=== PATIENT | female | born 1930 | race Hispanic/Latino ===

== ENCOUNTER 2017-12-01 10:03 | Inpatient (IN) | payer MEDICARE, OTHER ==
[2017-12-01 10:10] VITALS: BMI 15.6
--- NOTE | 2017-12-01 10:23 | ED PDOC ---
Arrival/HPI - General Chief Complaint: Trauma Time Seen by Provider: 12/01/17 10:08 Historian: Patient - History of Present Illness Narrative History of Present Illness (Text): 12/01/17 10:10 Susie Schwarz is an 87 year old female, whose past medical history includes COPD, hyperemia, and colon surgery, who presents to the emergency department complaining of right hip and right wrist pain s/p mechanical fall one day ago. Patient reports she was going to reach down for her mail when she ended up falling on her right side. She reports taking Aleve for her pain and notes spraining her right ankle a couple of weeks ago. Patient denies chest pain, shortness of breath, dizziness, lightheadedness, or palpitation. Patient did not hit their head. Patient denies any loss of consciousness, headache, fever, chills, cough, nausea, vomiting, diarrhea, visual changes, neck pain, dysuria, hematuria, frequency, bowel/bladder incontinence or retention, abdominal pain. Patient denies other bodily pain or injury. PMD: Dr. Engel Time/Duration: 24 hours Symptom Onset: Gradual Symptom Course: Unchanged Context: Home (mechanical fall) Past Medical History - Provider Review Nursing Documentation Reviewed: Yes - Infectious Disease Hx of Infectious Diseases: None - Tetanus Immunization Tetanus Immunization: Unknown - Reproductive Menopause: Yes - Pulmonary Hx Emphysema: No (pt denies) Hx Pneumonia: Yes (2007) Other/Comment: Flu 2008 - HEENT Hx Glaucoma: Yes - Hematological/Oncological Hx Shingles: Yes (face) - Musculoskeletal/Rheumatological Hx Falls: No Hx Fractures: Yes (right leg 13 yrs ago) Other/Comment: Right Hip Fx - Psychiatric Hx Substance Use: No - Surgical History Hx Cholecystectomy: Yes Other/Comment: colon sx, abdominal adhesions, cancerous polyp removed 15 yrs ago - Anesthesia Hx Anesthesia Reactions: No Hx Malignant Hyperthermia: No - Suicidal Assessment Feels Threatened In Home Enviroment: No Family/Social History - Physician Review Nursing Documentation Reviewed: Yes Family/Social History: Unknown Family HX Smoking Status: Never Smoked Hx Alcohol Use: No Hx Substance Use: No Hx Substance Use Treatment: No Allergies/Home Meds Allergies/Adverse Reactions: Allergies No Known Allergies Allergy (Verified 09/13/16 19:11) Home Medications: Home Meds Medication Instructions Recorded Confirmed Unobtainable 09/13/16 09/13/16 Review of Systems - Review of Systems Constitutional: absent: Fevers Respiratory: absent: SOB, Cough Cardiovascular: absent: Chest Pain Gastrointestinal: absent: Abdominal Pain, Vomiting Genitourinary Female: absent: Dysuria, Frequency Musculoskeletal: Other (right hip pain and right wrist pain) Skin: Other (small abrasion on right knee). absent: Rash Neurological: absent: Headache, Dizziness Hemo/Lymphatic: absent: Easy Bleeding Psychiatric: absent: Anxiety Physical Exam Vital Signs Temp Pulse Resp BP Pulse Ox 12/01/17 10:32 97.6 F 70 18 144/66 100 Appearance: Positive for: Well-Appearing, Non-Toxic, Comfortable Pain Distress: None Mental Status: Positive for: Alert and Oriented X 3 - Systems Exam Head: Present: Atraumatic, Normocephalic Pupils: Present: PERRL Extroacular Muscles: Present: EOMI Conjunctiva: Present: Normal Neck: Present: Normal Range of Motion. No: Meningeal Signs, MIDLINE TENDERNESS , Paraspinal Tenderness Respiratory/Chest: Present: Clear to Auscultation, Good Air Exchange. No: Respiratory Distress, Accessory Muscle Use, Wheezes, Rales, Retracting, Rhonchi Cardiovascular: Present: Regular Rate and Rhythm, Normal S1, S2. No: Murmurs Abdomen: Present: Normal Bowel Sounds. No: Tenderness, Distention, Peritoneal Signs, Rebound, Guarding Upper Extremity: Present: Normal ROM, NORMAL PULSES, Swelling (right wrist swelling, no tenderness), Neurovascularly Intact, Capillary Refill < 2s. No: Normal Inspection, Cyanosis, Edema, Tenderness Lower Extremity: Present: NORMAL PULSES, Normal ROM, Tenderness (posterior right hip tenderness. no ecchymosis and FROM of hip), Capillary Refill < 2 s. No: Normal Inspection, Edema, Cyanosis, Deformity Neurological: Present: GCS=15, CN II-XII Intact, Speech Normal Skin: Present: Warm, Dry, Normal Color, Abrasion (on right knee). No: Rashes Psychiatric: Present: Alert, Oriented x 3, Normal Insight, Normal Concentration Medical Decision Making ED Course and Treatment: 12/01/17 Impression: 87 year old female with posterior right hip tenderness. no ecchymosis and FROM of hip and legs. Right wrist swelling, but no tenderness and abrasion on right knee. Differential Diagnosis included but are not limited to: mechanical fall r/o fracture Plan: -- Right hip x-ray -- Right wrist x-ray -- Chest X-ray -- Labs -- Urinalysis -- Reassess and disposition Progress Notes: 12/01/17 15:05 Xrays of her hip and wrist have old fractures. There is no acute fracture. Patient is incontinent and wears a diaper so it's been difficult to get UA. She does not want to be strait cathed. She is unable to walk with a steady gait. I discussed case with daughter who reports this is her 2nd recent fall and she's concerned about her ability to walk. I discussed case with Dr. Pena who will admit her for further evaluation of hyponatremia and ataxia. - Lab Interpretations Lab Results: 12/01/17 10:40 12/01/17 10:40 Lab Results 12/01/17 10:40: Sodium 128 L, Potassium 4.5, Chloride 90 L, Carbon Dioxide 31, Anion Gap 12, BUN 20, Creatinine 0.5 L, Est GFR ( Amer) > 60, Est GFR ( Non-Af Amer) > 60, Random Glucose 83, Calcium 9.7 12/01/17 10:40: WBC 11.5 H, RBC 3.87, Hgb 10.9 L, Hct 33.7 L, MCV 87.1, MCH 28.2 , MCHC 32.3, RDW 13.4, Plt Count 236, MPV 9.0, Gran % 91.5 H, Lymph % (Auto) 2.6 L, Smith % (Auto) 5.5, Eos % (Auto) 0.2 L, Baso % (Auto) 0.2, Gran # 10.51 H , Lymph # (Auto) 0.3 L, Smith # (Auto) 0.6, Eos # (Auto) 0.0, Baso # (Auto) 0.02 , Neutrophils % (Manual) 90 H, Lymphocytes % (Manual) 4 L, Monocytes % (Manual) 5, Eosinophils % (Manual) 1, Platelet Evaluation Normal I have reviewed the lab results: Yes - RAD Interpretation Radiology Orders: 12/01/17 10:17 CXR [CHEST ONE VIEW] [RAD] Stat HIP MIN 2V W/ PELVIS RT [RAD] Stat WRIST, RIGHT 3 VIEWS [RAD] Stat 12/01/17 11:17 PELVIS W/O PO OR IV CONTRAST [CT] Stat Furnace Combination Analyst: Radiologist - EKG Interpretation Interpreted by ED Physician: Yes Type: 12 lead EKG - Scribe Statement The provider has reviewed the documentation as recorded by the Maciel Malone Provider Scribe Attestation: All medical record entries made by the Faithibe were at my direction and personally dictated by me. I have reviewed the chart and agree that the record accurately reflects my personal performance of the history, physical exam, medical decision making, and the department course for this patient. I have also personally directed, reviewed, and agree with the discharge instructions and disposition. Disposition/Present on Arrival - Present on Arrival Any Indicators Present on Arrival: No History of DVT/PE: No History of Uncontrolled Diabetes: No Urinary Catheter: No History of Decub. Ulcer: No History Surgical Site Infection Following: None - Disposition Have Diagnosis and Disposition been Completed?: Yes Diagnosis: Hyponatremia, Ataxia Disposition Time: 15:08 Patient Plan: Admission Condition: FAIR Forms: Deemelo (Italian)
[2017-12-01 11:05] LABS: BASO # 0.02 K/mm3 (0.0-2.0); BASO % 0.2 % (0.0-3.0); EOS % 0.2 % (1.5-5.0); GRAN # 10.51 (1.4-6.5); GRAN % 91.5 % (50.0-68.0); HEMOGLOBIN 10.9 g/dL (12.0-16.0); LYMPH # 0.3 (1.2-3.4); LYMPH % 2.6 % (22.0-35.0); MEAN CELL VOLUME 87.1 fl (80.0-105.0); MEAN CORPUSCULAR HEMOGLOBIN 28.2 pg (25.0-35.0); MEAN CORPUSCULAR HGB CONC 32.3 g/dl (31.0-37.0); MONO # 0.6 (0.1-0.6); MONO % 5.5 % (1.0-6.0); PLATELET COUNT 236 10^3/uL (120.0-450.0); RBC 3.87 10^6/uL (3.5-6.1); RED CELL DISTRIBUTION WIDTH 13.4 % (11.5-14.5); WHITE BLOOD COUNT 11.5 10^3/ul (4.5-11.0)
[2017-12-01 11:18] LABS: BLOOD UREA NITROGEN 20 mg/dL (7-21); CALCIUM 9.7 mg/dL (8.4-10.5); GFR AFRICAN-AMERICAN > 60; GFR NON-AFRICAN AMERICAN > 60
--- NOTE | 2017-12-01 11:40 | RAD ---
PROCEDURE: CHEST RADIOGRAPH, 1 VIEW HISTORY: fall r/o fx COMPARISON: 09/13/2016. FINDINGS: LUNGS: Fibronodular changes, scarring in both upper lobes/apices. PLEURA: No pneumothorax or pleural fluid seen. CARDIOVASCULAR: No radiographic findings to suggest acute or significant cardiovascular disease. OSSEOUS STRUCTURES: No acute findings. Healing of right proximal humeral fracture. VISUALIZED UPPER ABDOMEN: Normal. OTHER FINDINGS: None. IMPRESSION: No active disease. No acute/significant interval changes. Concordant results with the preliminary interpretation rendered by the emergency department physician procedure.
[2017-12-01 11:50] LABS: EOSINOPHIL 1 % (0.0-3.0); LYMPHOCYTE 4 % (22.0-35.0); MONOCYTE 5 % (1.0-6.0); NEUTROPHIL 90 % (50.0-70.0); PLATELET ESTIMATE NORMAL (NORMAL)
--- NOTE | 2017-12-01 12:37 | RAD ---
PROCEDURE: Right Wrist Radiographs. HISTORY: fall r/o fx COMPARISON: None. FINDINGS: BONES: Evidence of old and healed distal radial fracture. JOINTS: Incompletely visualize osteoarthritic changes primarily carpal 1st metacarpal joint. SOFT TISSUES: No appreciable soft tissue swelling. OTHER FINDINGS: None. IMPRESSION: No acute findings related to/accounting for the clinical presentation. Old healed distal radial fracture. There is no appreciable soft tissue swelling.
--- NOTE | 2017-12-01 12:38 | RAD ---
PROCEDURE: Pelvis right hip HISTORY: fall r/o fx COMPARISON: None TECHNIQUE: Standard protocol for this study/examination. FINDINGS: No acute osseous abnormalities. Bipolar prosthesis components in satisfactory position/alignment without evidence of hardware loosening or failure. Diffuse osteopenia identified. IMPRESSION: No acute findings related to/accounting for the clinical presentation. Concordant results with the preliminary interpretation rendered by the emergency department physician procedure.
[2017-12-01] MEDS ORDERED: Iohexol 350 MG/100 ML VIAL ONE (13:00)
--- NOTE | 2017-12-01 14:34 | CT ---
PROCEDURE: CT Pelvis without contrast move HISTORY: right hip pain s/p fall r/o fx COMPARISON: None. TECHNIQUE: Contiguous axial images of the pelvis . No intravenous or oral contrast given. Coronal and sagittal reformats generated. Radiation dose: Total exam DLP = 193.31 mGy-cm. This CT exam was performed using one or more of the following dose reduction techniques: Automated exposure control, adjustment of the mA and/or kV according to patient size, and/or use of iterative reconstruction technique. FINDINGS: BLADDER: Unremarkable. No mass. REPRODUCTIVE ORGANS: Unremarkable. VISUALIZED BOWEL: Constipation without fecal impaction or obstruction. PERITONEUM: Unremarkable, as visualized. No free fluid. No free air. LYMPH NODES: Unremarkable. No enlarged lymph nodes. BONES: Diffuse osteopenia. No acute fracture. Evidence of old fracture of the right pubis No abnormalities proximal right femur, right hip prosthesis. VASCULATURE: Unremarkable. OTHER FINDINGS: None. IMPRESSION: No acute findings related to/accounting for the clinical presentation. Old right pelvic ring fracture. Unremarkable right hip prosthesis as visualized. Additional benign and/or incidental findings described above.
[2017-12-01] MEDS ORDERED: Sodium Chloride 0.9% 1,000 ML IV SCH (15:15)
[2017-12-01 15:50] LABS: IRON 37 ug/dL (45-180)
[2017-12-01 16:00] LABS: % IRON SATURATION 12 % (20-55); TOTAL IRON BINDING CAPACITY 319 ug/dL (265-497)
[2017-12-01 21:18] LABS: FOLATE > 20.0 ng/mL
[2017-12-01 23:10] LABS: URINE APPEARANCE CLEAR (CLEAR); URINE BILIRUBIN NEGATIVE (NEGATIVE); URINE BLOOD NEGATIVE (NEGATIVE); URINE COLOR YELLOW (YELLOW); URINE GLUCOSE (UA) NEGATIVE (NEGATIVE); URINE LEUKOCYTE ESTERASE NEGATIVE Leu/uL (NEGATIVE); URINE NITRATE NEGATIVE (NEGATIVE); URINE PROTEIN TRACE mg/dL (<30 mg/dL); URINE UROBILINOGEN 0.2 E.U./dL (<1 E.U./dL)
[2017-12-01 23:19] LABS: URINE RBC NEGATIVE /hpf (0-2)
--- NOTE | 2017-12-02 04:19 | HP ---
DATE; 12/01/2017 SUMMARY: This 87-year-old female presented to the [facility] ER after a fall at home where she fell down while trying to reach down for her mail this morning, injuring her right hip and thigh. The patient came to the [facility] ER, where she underwent diagnostic workup including pelvic CT, right wrist x-ray, right hip and pelvic x-rays, all negative for fracture. The patient is admitted for deconditioning, and laboratory showing hyponatremia. The patient lives at home alone. She has the help of family and a homemaker, who assists her with activities of daily living. She is independent and declines any consideration for mcc placement or subacute rehab. SOCIAL HISTORY: The patient is a nondrinker, nonsmoker, non-IV drug misuser. 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 MEDICATIONS: Outpatient medication included demeclocycline, Proventil inhaler. ALLERGIES: SHE DENIES ANY ALLERGIES TO MEDICATION. REVIEW OF SYSTEMS: CONSTITUTIONAL: She denies fever or chills. HEAD: Denied loss of consciousness or seizure. EYES: No change in visual acuity. She has chronic glaucoma. EARS: No hearing loss. THROAT: No swallowing difficulty. NECK: Review no stiffness. CARDIAC: She denied chest pain or knowledge of hypertension. PULMONARY: She has chronic obstructive pulmonary disease, for which she uses daily Proventil inhaler. GASTROINTESTINAL: She denies GERD and has a history of colon cancer with resection. GENITOURINARY: Denies dysuria. SKIN: Denies rash. VASCULAR: Denies claudication. PSYCHOLOGICAL: Chronic anxiety. NEUROLOGICAL: No knowledge of stroke. FAMILY HISTORY: Noncontributory. PHYSICAL EXAMINATION: VITAL SIGNS: Temperature 98, respiratory 18, pulse 68, blood pressure 147/64, pulse ox 96% room air. HEENT: Head normocephalic, atraumatic. Eyes, no icterus. Ears, clear. Throat, noninjected. NECK: Supple. HEART: Regular S1, S2. LUNGS: Clear. ABDOMEN: Soft. EXTREMITIES: No edema. SKIN: Without rash. NEUROLOGICAL: Intact. PSYCHOLOGICAL: Alert. VASCULAR: Legs warm to touch. LABORATORY DATA: White count 11,500, hemoglobin 10.9, hematocrit 33.7, platelets 236,000. Sodium 128, K 4.5, chloride 90, bicarb 31, BUN 20, creatinine 0.5, random blood sugar 83. Chest x-ray consistent with chronic obstructive pulmonary disease. Right hip and pelvic x-ray, no evidence of fracture. Right wrist x-ray, no evidence of fracture. Pelvic CT, no evidence of fracture. She is status post right hip replacement in the distant past, right hip prosthesis in position with good alignment. IMPRESSION: An 87-year-old female, status post fall at home, with chronic obstructive pulmonary disease, hyponatremia, SIADH, and newly noted anemia, with history of colon cancer resection in the past, and history of old right hip fracture and old right wrist fracture, and degenerative arthritis, anxiety and debility. PLAN: Is to admit this patient. She will have blood testing including comprehensive metabolic panel in the a.m., and iron, TIBC, and ferritin levels presently, with vitamin B12 and folic acid levels recorded as well, and a repeat CBC for the a.m. She will be started on 0.9 saline at 70 mL per hour, demeclocycline 300 mg p.o. b.i.d., Xopenex inhalational therapy 0.63 mg t.i.d. and Tylenol 650 mg p.o. q. 6 hours p.r.n. pain. She is ordered to have a soft bland diet. She is placed on high-risk fall protocol. I have ordered physical therapy for ambulation safety, and a consultation for transitional care rehab for reconditioning and IV fluids. Based on her clinical progress, additional testing will be entertained. The above plan of action was reviewed in detail with Dr. Perez from the emergency room. Rossy Pena MD MTDQasim
[2017-12-02 06:37] LABS: HEMOGLOBIN 9.6 g/dL (12.0-16.0); MEAN CELL VOLUME 86.4 fl (80.0-105.0); MEAN CORPUSCULAR HEMOGLOBIN 27.8 pg (25.0-35.0); MEAN CORPUSCULAR HGB CONC 32.2 g/dl (31.0-37.0); MEAN PLATELET VOLUME 8.9 fl (7.0-11.0); RBC 3.45 10^6/uL (3.5-6.1); RED CELL DISTRIBUTION WIDTH 13.8 % (11.5-14.5); WHITE BLOOD COUNT 9.2 10^3/ul (4.5-11.0)
[2017-12-02 06:39] LABS: ALB/GLOB RATIO 0.9 (1.1-1.8); ALBUMIN 2.9 g/dL (3.0-4.8); ALT/SGPT 28 U/L (7-56); AST/SGOT 39 U/L (14-36); BLOOD UREA NITROGEN 22 mg/dL (7-21); CALCIUM 8.6 mg/dL (8.4-10.5); GFR AFRICAN-AMERICAN > 60; GFR NON-AFRICAN AMERICAN > 60
[2017-12-02] MEDS: Levalbuterol 0.63 MG/3 ML Inhal Soln UD IH SCH ×3 (07:35→19:27)
--- NOTE | 2017-12-02 15:15 | CT ---
PROCEDURE: CT Abdomen and Pelvis without intravenous contrast HISTORY: Abd firm/ constipation and hist of colon CA COMPARISON: December 01, 2017. CT pelvis 05/07/2015 CT thorax abdomen and pelvis. TECHNIQUE: Unenhanced study. Neither oral nor intravenous contrast administered. Radiation dose: Total exam DLP = 192.51 mGy-cm. This CT exam was performed using one or more of the following dose reduction techniques: Automated exposure control, adjustment of the mA and/or kV according to patient size, and/or use of iterative reconstruction technique. FINDINGS: LOWER THORAX: Bilateral pleural effusions and associated compressive atelectasis. LIVER: Unremarkable. No gross lesion or ductal dilatation. GALLBLADDER AND BILE DUCTS: Unremarkable. PANCREAS: Unremarkable. No gross lesion or ductal dilatation. SPLEEN: Unremarkable. ADRENALS: Unremarkable. No mass. KIDNEYS AND URETERS: . Unremarkable. No hydronephrosis. No solid mass. VASCULATURE: Unremarkable. No aortic aneurysm. BOWEL: Constipation without fecal impaction or obstruction. Postoperative findings, surgical suture line in the sigmoid colon APPENDIX: No visualized. PERITONEUM: Unremarkable. No free fluid. No free air. LYMPH NODES: Unremarkable. No enlarged lymph nodes. BLADDER: Decompressed urinary bladder with a Burleson catheter in place. REPRODUCTIVE: Unremarkable. Limited assessment of pelvic structures related to right [place]. BONES: No acute fracture. Evidence of old right pelvic ring fracture Scoliosis, secondary degenerative change at multiple levels. OTHER FINDINGS: None. IMPRESSION: No acute findings related to/accounting for the clinical presentation. Additional benign and/or incidental findings described above. Limitations of the current examination: Absence of oral contrast in an individual with little appreciable body fat precludes optimal assessment of small bowel and colon. Additional benign and/or incidental findings described above.
[2017-12-02] MEDS: Brimonidine 0.15% 50 DROP/5 ML BOTTLE OU SCH (17:40)
--- NOTE | 2017-12-02 20:44 | CARD ---
APPROVED REPORT EKG Measurement Heart [id number] MD [id number] <Conclusion> Sinus rhythm with premature atrial complexes Septal infarct, age undetermined Abnormal ECG
[2017-12-02] MEDS: Latanoprost 2.5 ml Opht Soln OU SCH (21:42)
[2017-12-03 06:38] LABS: HEMOGLOBIN 9.3 g/dL (12.0-16.0)
[2017-12-03 06:58] LABS: BLOOD UREA NITROGEN 14 mg/dL (7-21); CALCIUM 8.4 mg/dL (8.4-10.5); GFR AFRICAN-AMERICAN > 60; GFR NON-AFRICAN AMERICAN > 60
[2017-12-03] MEDS: Levalbuterol 0.63 MG/3 ML Inhal Soln UD IH SCH ×4 (08:10→19:56)
--- NOTE | 2017-12-03 08:58 | PN ---
DATE: 12/02/2017 SUBJECTIVE: This 87-year-old female was examined at her bedside in the presence of her nurse, Carlota George, registered nurse. The patient was complaining of obstipation and stated she has not moved her bowels for several days. She denied any fever, chills, chest pain, shortness of breath, or nausea and stated that her appetite was decreased over the past several days as well prior to admission. PHYSICAL EXAMINATION VITAL SIGNS: Temperature 98, respirations 22, pulse 62, blood pressure 115/55. Pulse ox 94% room air. HEENT: Head normocephalic, atraumatic. Eyes: No icterus. Ears: Clear. Throat: Noninjected. NECK: Supple. HEART: Regular. S1, S2. LUNGS: Occasional rhonchi that clear with coughing. ABDOMEN: Soft. EXTREMITIES: No edema. SKIN: Without rash. NEUROLOGICAL: Intact. Positive deconditioning. PSYCHOLOGICAL: Alert. VASCULAR: Legs warm to touch. LABORATORY DATA: White count 9200, hemoglobin 9.6, hematocrit 29.8, platelets 221,000. Sodium 128, potassium 4.4, chloride 95, bicarb 26, BUN 22, creatinine 0.5, random blood sugar 82, iron 37, TIBC 319, percent saturation 12, ferritin level 183. Bilirubin 0.6, AST 39, ALT 28, alk phos 99. B12 level greater than 1000. Folic acid level greater than 20. T4 of 7.0 normal, TSH 4.81, normal 4.68 or less. Urinalysis unremarkable. IMAGING: Abdominopelvic CT was ordered without oral or IV contrast because of abdominal distention and history of colon cancer and obstipation. This x-ray was reviewed. It showed no evidence of obstruction, no obvious masses, and her bowel showed evidence of constipation without fecal impaction or obstruction. POSTOPERATIVE FINDINGS: Included surgical suture line in the sigmoid colon. 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 and chronic glaucoma. PLAN: As discussed with the patient and nursing at bedside will to be to continue her eyedrops from home as labeled. She continues on a soft bland diet with 1000 mL p.o. fluid restriction while continuing the demeclocycline 300 mg p.o. b.i.d., lactulose 10 g p.o. b.i.d., 0.9 saline 70 mL/hour, and Xopenex 0.63 mg inhalation t.i.d. I have ordered a routine EKG. She will remain on fall protocol. When the patient is more ambulatory, Burleson catheter will be removed, and the patient is ordered to have physical therapy for reconditioning, gait training, and an evaluation for transitional care rehab. Basic metabolic panel and hemoglobin/hematocrit will be repeated in a.m. The patient declines any consideration for endoscopy or colonoscopy at this time. She declines institution of iron supplementation given her recent obstipation and all of the above was discussed in detail with the patient and nursing present. Greater than 35 minutes were spent in the care management, review of x-rays, labs, and ordering of testing for this patient today. All questions were answered. Rossy Pena MD MTDQasim
[2017-12-03] MEDS: Brimonidine 0.15% 50 DROP/5 ML BOTTLE OU SCH ×2 (09:53→17:37)
[2017-12-03] MEDS ORDERED: Potassium Chloride 20 mEq ER Tab PO ONE (10:24)
[2017-12-03] MEDS ORDERED: Sodium Chloride 0.9% 100 ML IV SCH (11:00)
[2017-12-03] MEDS ORDERED: Bisacodyl 5mg EC Tab PO ONE (11:47)
--- NOTE | 2017-12-03 13:51 | PN ---
DATE: 12/03/2017 SUBJECTIVE: This 87-year-old female was examined at the bedside in the presence of her nurse, Mandy Winchester, registered nurse. The patient remains at bed rest. She still requires Burleson catheter and has not moved her bowels despite dosing with lactulose. The patient remains weak and deconditioned status post a fall at home and denies any fevers, chills, chest pain or shortness of breath and there have been no episodes of vomiting. I did review her CT of the abdomen and pelvis that showed no evidence of obstruction or mass and all x-rays of her wrist, pelvis, hip were reviewed and negative for fracture as well. PHYSICAL EXAMINATION: VITAL SIGNS: Temperature is 97.7, respirations 20, pulse 70, blood pressure 140/70 with a pulse ox of 97% on room air. Urine output 250 mL thus far today. HEENT: Head: Normocephalic, atraumatic. Eyes: No icterus. Ears: Clear. Throat: Noninjected. NECK: Supple. HEART: Regular S1, S2. LUNGS: Clear. ABDOMEN: Soft. EXTREMITIES: No edema. SKIN: Without rash. NEUROLOGICAL: Intact. PSYCHOLOGICAL: Alert. VASCULAR: Legs warm to touch. LABORATORY DATA: Hemoglobin 9.3, hematocrit 28.5. Sodium 127, K 4.1, chloride 96, bicarb 25, BUN 14, creatinine 0.4, random blood sugar is 79, percent saturation 12, ferritin 183. B12 greater than 1000, folate greater than 20. T4 normal 7.0. Bilirubin 0.6, AST 39, ALT 28 and alk phos 99. IMPRESSION: An 87-year-old female status post a fall at home with comorbidities of hyponatremia, syndrome of inappropriate antidiuretic hormone, newly noted anemia, chronic glaucoma, degenerative arthritis, history of right hip fracture and repair in the past, now with constipation noted on CT of abdomen and pelvis. PLAN: As discussed with the patient and nursing at bedside will be to continue glaucoma eyedrops from home as labeled and IV 0.9 saline will be discontinued and the patient will be given demeclocycline 300 mg p.o. b.i.d. and Lasix 20 mg IV x1 dose with 20 mEq of p.o. K-Dur x1 dose as well. The patient will receive a Dulcolax suppository x1, lactulose 30 g p.o. b.i.d. until bowel movement and if she has no bowel movement by 3:30 p.m. today, she has an order for a Fleets Enema. The patient will have repeat basic metabolic panel and hemoglobin and hematocrit in the a.m. I have requested a consultation with GI regarding scheduling of endoscopy and possible colonoscopy given her newly noted anemia and history of colon cancer in the past. The patient states that her previous endoscopy and colonoscopy which were unremarkable was approximately 5 years ago. Greater than 35 minutes was spent in the care and management, review of x-rays, labs, medication and outlining of orders for this patient today and discussion of this with her and her nurse at the bedside. All questions were answered. Rossy Pena MD MTDQasim
[2017-12-03] MEDS: Latanoprost 2.5 ml Opht Soln OU SCH (21:50)
--- NOTE | 2017-12-04 03:51 | CON ---
DATE: 12/02/2017 This patient was seen and evaluated earlier today. REASON FOR CONSULTATION: Abdominal pain, constipation. HISTORY OF PRESENT ILLNESS: This is an 87-year-old patient with a past medical history of COPD, hyponatremia, history of colon resection, admitted following a fall with complaints of pain. The patient was found to be complaining also little bit weakness, and admitted for observation. PAST MEDICAL HISTORY: Significant as above. ALLERGIES: NO KNOWN DRUG ALLERGY. SOCIAL HISTORY: Denies smoking or alcohol. REVIEW OF SYSTEMS: Positive as above. Other systems reviewed and negative. PHYSICAL EXAMINATION: GENERAL: The patient is lying on the bed, not in any acute distress. VITAL SIGNS: Temperature 97.7, blood pressure is 143/72, pulse 70, respirations 20, O2 saturation 94%. HEENT: Atraumatic, anicteric. NECK: Supple. HEART: S1, S2 heard. LUNGS: Bilateral air entry present. ABDOMEN: Soft. There is no tenderness. EXTREMITIES: No cyanosis, no clubbing. NEUROLOGIC: Alert, oriented. Moves all the extremities. LABORATORY DATA: Hemoglobin 9.6, hematocrit 29.8, WBC is 9.2, platelets 231. Chemistries are essentially unremarkable. Sodium 127, potassium 4.1. LFTs are normal except albumin 2.9, TSH 4.81. IMPRESSION: This is an 87-year-old patient, admitted following a fall, complains of weakness and pain, found to be fecal impacted and constipated severely. Gastroenterology consult was requested to evaluate this. The CT scan was reviewed. A large amount of stool present in the colon removed. RECOMMENDATION: Would recommend: 1. Continue the . I will start the patient on MiraLax. The patient is already on lactulose and also having enemas. Would recommend and we will start her on one bottle of . Dulcolax tablets. 2. Followup her electrolytes. 3. Continue to closely follow up her care and suggest further management based on the clinical course. Nick Lewis MD
[2017-12-04 06:37] LABS: HEMOGLOBIN 9.5 g/dL (12.0-16.0)
[2017-12-04] MEDS: Levalbuterol 0.63 MG/3 ML Inhal Soln UD IH SCH ×3 (07:20→19:52)
[2017-12-04 07:22] LABS: BLOOD UREA NITROGEN 14 mg/dL (7-21); CALCIUM 8.5 mg/dL (8.4-10.5); GFR AFRICAN-AMERICAN > 60; GFR NON-AFRICAN AMERICAN > 60
--- NOTE | 2017-12-04 08:25 | CON ---
DATE: 12/03/2017 REASON FOR CONSULTATION: Abdominal discomfort, constipation. HISTORY OF PRESENT ILLNESS: This 87-year-old patient with a past medical history of COPD, status post colon surgery, presented to the emergency room following fall and pain, right hip and right wrist area. SOCIAL HISTORY: She denies smoking or alcohol. ALLERGIES: DENIES ANY DRUG ALLERGY. REVIEW OF SYSTEMS: Positive as above, other systems reviewed. PHYSICAL EXAMINATION: GENERAL: The patient is lying on the bed, not in acute distress. VITAL SIGNS: Temperature is 97, blood pressure 125/69, pulse 66, respirations 18. O2 saturation is 97%. HEENT: Atraumatic, anicteric. NECK: Supple. HEART: S1 and S2 heard. LUNGS: Bilateral air entry present. ABDOMEN: Soft, . EXTREMITIES: No cyanosis. No clubbing. NEUROLOGIC: Alert, oriented. Moves all the extremities. LABORATORY DATA: Hemoglobin 9.6, hematocrit 29.8, WBC is 6.2, platelets 221. The patient had a CT scan of the abdomen and pelvis done which showed large amount of stool in the colon. IMPRESSION: 1. This 87-year-old patient was admitted following a fall. Would recommend increasing MiraLax to four times a day the bowel movements. Then, we will cut it down to once a day. CT scan of the abdomen done was limited due to lack of intravenous contrast. 2. Hyponatremia. RECOMMENDATIONS: 1. To continue the MiraLax. 2 The patient is due to have an enema. Follow up with the electrolytes. Nick Lewis MD
[2017-12-04] MEDS: Brimonidine 0.15% 50 DROP/5 ML BOTTLE OU SCH ×2 (09:47→17:05)
[2017-12-04] MEDS ORDERED: Bisacodyl 5mg EC Tab PO ONE (10:05)
[2017-12-04] MEDS ORDERED: POLYETHYLENE GLYCOL 3350 17 GM/Dose PACKET PO SCH ×3 (10:15→18:00)
--- NOTE | 2017-12-04 12:24 | CP.PCM.PN ---
<Maria T Whitten - Last Filed: 12/04/17 12:21> Subjective - Date & Time of Evaluation Date of Evaluation: 12/04/17 Time of Evaluation: 10:30 - Subjective Subjective: S& E at bedside, chart reviewed, had BM last night as per nursing, no reports of overt GI bleeding. On bedpan now. Abdomen is softly distended. No N/V or abdominal pain. Tolerating oral intake. Objective - Vital Signs/Intake and Output Vital Signs (last 24 hours): Temp Pulse Resp BP Pulse Ox 97.9 F 63 22 148/66 96 12/04/17 08:37 12/04/17 08:37 12/04/17 08:37 12/04/17 08:37 12/04/17 08:37 Intake and Output: 12/04/17 12/04/17 06:59 18:59 Intake Total 300 240 Output Total 300 100 Balance 0 140 - Medications Medications: Current Medications Acetaminophen (Tylenol 325mg Tab) 650 mg PO Q6H PRN PRN Reason: pain or temp Brimonidine Tartrate (Alphagan P 0.15% Opht) 1 drop OU BID [facility] Last Admin: 12/04/17 09:47 Dose: 1 drop Demeclocycline HCl (Declomycin) 300 mg PO BID [facility] PRN Reason: Protocol Last Admin: 12/04/17 09:47 Dose: 300 mg Latanoprost (Xalatan Opht) 0 ml OU HS [facility] Last Admin: 12/03/17 21:50 Dose: 2.5 ml Levalbuterol HCl (Xopenex) 0.63 mg IH TID [facility] Last Admin: 12/04/17 07:20 Dose: 0.63 mg Polyethylene Glycol (Miralax) 17 gm PO DAILY [facility] Last Admin: 12/04/17 11:12 Dose: 17 gm - Labs Labs: 12/04/17 05:30 12/04/17 05:30 - Constitutional Appears: No Acute Distress - Eye Exam Eye Exam: Normal appearance. absent: Scleral icterus - ENT Exam ENT Exam: Mucous Membranes Moist - Respiratory Exam Respiratory Exam: NORMAL BREATHING PATTERN. absent: Respiratory Distress - Cardiovascular Exam Cardiovascular Exam: +S1, +S2 - GI/Abdominal Exam GI & Abdominal Exam: Distended, Soft, Normal Bowel Sounds. absent: Guarding, Tenderness, Rebound - Extremities Exam Extremities Exam: absent: Calf Tenderness, Pedal Edema - Neurological Exam Neurological Exam: Alert, Awake, Oriented x3 Assessment and Plan - Assessment and Plan (Free Text) Assessment: ASSESSMENT: Abdomianl pain, resolved Constipation/fecal impaction Hyponatremia SIADH Anemia S/P fall PLAN: Miralax 17gm, BID X2 days,if good BM, consider daily dose and hold for loose stools monitor electrolytes diet as tolerated , recommend initially low residual, once BM improves, increase fiber DVT & GI prophylaxsis monitor H/H, overt GI bleeding Seen and discussed w/ Dr. Lewis. <Nick Lewis V - Last Filed: 12/05/17 00:03> Objective - Vital Signs/Intake and Output Vital Signs (last 24 hours): Temp Pulse Resp BP Pulse Ox 98.7 F 71 20 138/63 97 12/04/17 16:57 12/04/17 16:57 12/04/17 16:57 12/04/17 16:57 12/04/17 16:57 Intake and Output: 12/04/17 12/05/17 18:59 06:59 Intake Total 240 Output Total 100 Balance 140 - Labs Labs: 12/04/17 05:30 12/04/17 05:30 Attending/Attestation - Attestation I have personally seen and examined this patient.: Yes I have fully participated in the care of the patient.: Yes I have reviewed all pertinent clinical information, including history, physical exam and plan: Yes Notes (Text): This is an addendum to GI progress report dictated by Maria T Whitten APN.The patient was seen and examined earlier. Medical records, lab studies, imagings were reviewed. Last 24 hours events reviewed. Agreed with the above treatment plan as outlined in Maria T Whitten APN's notes the with the addition of the following 12/05/17 00:03
[2017-12-04] MEDS ORDERED: Potassium Chloride 20 mEq ER Tab PO ONE (13:41)
[2017-12-04 16:58] VITALS: BP 138/63; PULSE 71; RESP 20; TEMP 98.7; O2SAT 97
--- NOTE | 2017-12-04 19:23 | PN ---
DATE: 12/04/2017 SUBJECTIVE: This 87-year-old female was examined at her bedside and this case was reviewed in detail with herself and her nurse, Prabha registered nurse. The patient has been seen by Dr. Nick Lewis from GI. She was admitted with us after a fall at home and was noted to have obstipation, urinary retention and hyponatremia. The patient is being treated with oral laxatives and I am concerned because of a newly noted iron-deficiency anemia. I have asked Dr. Nick Lewis to coordinate the timing of endoscopy and possible colonoscopy for this patient who has had obstipation, history of colon cancer and decreased appetite with weight loss of late. At present the patient denies any fever, chills, chest pain or shortness of breath and remains in a normal sinus rhythm on the radiation monitor. She is evaluated for transitional care rehab and I have discussed this with the director and she will be accepting this patient within the next 24 hours. PHYSICAL EXAMINATION: VITAL SIGNS: Normal sinus rhythm on radiation monitor with temperature 97.9, respirations 22, pulse 63 and blood pressure 140/70 with a pulse ox of 96% room air. HEENT: Head normocephalic, atraumatic. Eyes: No icterus. Ears: Clear. Throat: Noninjected. NECK: Supple. HEART: Regular S1, S2. LUNGS: Clear. ABDOMEN: Soft. EXTREMITIES: No edema. SKIN: Without rash. NEUROLOGICAL: Intact. PSYCHOLOGICAL: Alert. VASCULAR: Legs warm to touch. Urinary output was 1250 mL yesterday. Negative fluid balance noted. LABORATORY DATA Hemoglobin 9.5, hematocrit 30.1. Sodium 130, K 4.1, chloride 97, bicarb 27, BUN 14, creatinine 0.4, random blood sugar 85. Urinalysis unremarkable. Stool for occult blood negative. Abdominal pelvic CT was reviewed and consistent with obstipation. Chest x-ray showed no infiltrate and pelvic CT, wrist x-rays and hip x-ray showed no evidence of fracture. EKG was reviewed and showed normal sinus rhythm with nonspecific ST-T wave changes. IMPRESSION: An 87-year-old female status post a slip and fall at home with comorbidities of syndrome of inappropriate antidiuretic hormone, glaucoma, hyponatremia improving, obstipation, degenerative arthritis, history of right hip fracture and repair in the distant past, chronic obstructive pulmonary disease and newly noted iron-deficiency anemia. The plan is discussed with the patient, nursing and co-consultants will be to continue glaucoma eyedrops from home as labeled. She remained on a soft bland 1000 mL p.o. fluid restricted diet with demeclocycline 300 mg p.o. b.i.d., Lasix 20 mg IV daily, potassium chloride 20 mEq p.o. daily. Basic metabolic panels are to be followed daily. She is also receiving MiraLax 17 g p.o. b.i.d. and Xopenex inhalational therapy 0.63 mg t.i.d. with 2 liters nasal O2 p.r.n. Once the patient is ambulatory, Burleson catheter will be removed. She remains on high-risk fall protocol and all of the above was reviewed for greater than 35 minutes with the patient, nursing, co-consultants and rehabilitation unit where orders were given. All questions were answered. Rossy Pena MD MTDQasim
[2017-12-04] MEDS ORDERED: Magnesium Citrate Oral SOL (300 ml) PO ONE (20:32)
== END 2017-12-04 20:39 | DRG 645 ==
LOC: ED 10:03 → ERH 15:04 → 3RNO 16:06
PROVIDERS: ADMIT Internal Medicine; ATTEND Internal Medicine
DX: E22.2 Syndrome of inappropriate secretion of antidiuretic hormone (principal); J44.9 Chronic obstructive pulmonary disease, unspecified; D50.9 Iron deficiency anemia, unspecified; K56.41 Fecal impaction; H40.9 Unspecified glaucoma; M19.90 Unspecified osteoarthritis, unspecified site; R27.0 Ataxia, unspecified; Z96.641 Presence of right artificial hip joint; F41.9 Anxiety disorder, unspecified; Z85.038 Personal history of other malignant neoplasm of large intestine

== ENCOUNTER 2017-12-04 20:39 | Inpatient (IN) | payer OTHER ==
[2017-12-04] MEDS: Latanoprost 2.5 ml Opht Soln OU SCH (21:56)
[2017-12-05 03:38] VITALS: BMI 15.3
[2017-12-05] MEDS: Levalbuterol 0.63 MG/3 ML Inhal Soln UD IH SCH ×4 (07:20→20:58)
[2017-12-05 08:06] LABS: BASO # 0.03 K/mm3 (0.0-2.0); BASO % 0.4 % (0.0-3.0); EOS # 0.6 (0.0-0.7); EOS % 6.5 % (1.5-5.0); GRAN # 6.45 (1.4-6.5); GRAN % 75.9 % (50.0-68.0); HEMOGLOBIN 9.6 g/dL (12.0-16.0); LYMPH # 0.8 (1.2-3.4); LYMPH % 9.3 % (22.0-35.0); MEAN CELL VOLUME 87.4 fl (80.0-105.0); MEAN CORPUSCULAR HEMOGLOBIN 27.6 pg (25.0-35.0); MEAN CORPUSCULAR HGB CONC 31.6 g/dl (31.0-37.0); MEAN PLATELET VOLUME 8.8 fl (7.0-11.0); MONO # 0.7 (0.1-0.6); MONO % 7.9 % (1.0-6.0); RBC 3.48 10^6/uL (3.5-6.1); RED CELL DISTRIBUTION WIDTH 13.8 % (11.5-14.5); WHITE BLOOD COUNT 8.5 10^3/ul (4.5-11.0)
[2017-12-05] MEDS: Potassium Chloride 20 mEq ER Tab PO SCH (08:21)
[2017-12-05 08:25] LABS: BLOOD UREA NITROGEN 21 mg/dL (7-21); CALCIUM 8.8 mg/dL (8.4-10.5); GFR AFRICAN-AMERICAN > 60; GFR NON-AFRICAN AMERICAN > 60
[2017-12-05] MEDS: Brimonidine 0.15% 50 DROP/5 ML BOTTLE OU SCH ×2 (10:35→18:27)
[2017-12-05] MEDS: POLYETHYLENE GLYCOL 3350 17 GM/Dose PACKET PO SCH ×2 (10:40→18:28)
--- NOTE | 2017-12-05 15:25 | PN ---
DATE: 12/05/2017 SUBJECTIVE: This 87-year-old female was examined at her bedside and this case was reviewed in detail with charge nurse, Kaylee Bryant, registered nurse. The patient remains weak and deconditioned. She is requesting to have her Burleson catheter removed. The patient has not had a bowel movement in the past 24 hours and is asking for adjustment of her bowel regimen to effect a bowel movement. This was reviewed with nursing. The patient was started on MiraLax 17 g p.o. b.i.d. on medical admission. She will be ordered to have a Dulcolax suppository followed by a Fleets Enema if she does not have the bowel movement. PHYSICAL EXAMINATION: VITAL SIGNS: Temperature is 97.3, respirations 22, pulse 64 and blood pressure 126/50. HEENT: Head: Normocephalic, atraumatic. Eyes: No icterus. Ears: Clear. Throat: Noninjected. NECK: Supple. HEART: Regular S1, S2. LUNGS: Clear. ABDOMEN: Soft. EXTREMITIES: No edema. SKIN: Without rash. NEUROLOGICAL: Intact. PSYCHOLOGICAL: Alert. VASCULAR: Legs warm to touch. LABORATORY DATA: White count 8500, hemoglobin 9.6, hematocrit 30.4, platelets 258,000. Sodium 132, K 4.6, chloride 95, bicarb 31, BUN 21, creatinine 0.5, random blood sugar is 83. IMPRESSION: An 87-year-old female with multiple medical problems, admitted status post a fall at home with comorbidities of glaucoma, syndrome of inappropriate antidiuretic hormone, hyponatremia improved, colon cancer in the past, newly noted anemia, obstipation and constipation and chronic obstructive pulmonary disease. PLAN: The plan is to maintain this patient on fall risk protocol. She is ordered to have strict I's and O's and stool for occult blood, which was previously negative. She is ordered to have physical and occupational therapy. Burleson catheter will be removed, but reinserted if she is unable to void and she will continue on Xopenex inhalational therapy, glaucoma eyedrops from home as labeled, MiraLax 17 g p.o. b.i.d., Lasix 20 mg IV daily, holding for any blood pressure less than 120 systolic, potassium chloride 20 mEq p.o. daily demeclocycline 30 mg p.o. b.i.d. and the patient will have a repeat basic metabolic panel and hemoglobin/hematocrit daily for the next 3 days. Greater than 35 minutes was spent in the care, review of x-rays, labs, medication orders and discussion of this patient's management with herself and nursing today. All questions were answered. Rossy Pena MD MTDD
[2017-12-05] MEDS: Latanoprost 2.5 ml Opht Soln OU SCH (21:57)
[2017-12-06] MEDS: Levalbuterol 0.63 MG/3 ML Inhal Soln UD IH SCH ×4 (07:12→19:42)
[2017-12-06 07:46] LABS: BLOOD UREA NITROGEN 21 mg/dL (7-21); CALCIUM 8.9 mg/dL (8.4-10.5); GFR AFRICAN-AMERICAN > 60; GFR NON-AFRICAN AMERICAN > 60
[2017-12-06] MEDS: Potassium Chloride 20 mEq ER Tab PO SCH (08:11)
[2017-12-06 08:28] LABS: HEMOGLOBIN 9.6 g/dL (12.0-16.0)
[2017-12-06] MEDS: Brimonidine 0.15% 50 DROP/5 ML BOTTLE OU SCH ×2 (10:18→17:30)
[2017-12-06] MEDS: POLYETHYLENE GLYCOL 3350 17 GM/Dose PACKET PO SCH ×2 (10:20→17:31)
[2017-12-06 17:39] VITALS: RESP 20
[2017-12-06] MEDS: Latanoprost 2.5 ml Opht Soln OU SCH (21:45)
[2017-12-07] MEDS: Levalbuterol 0.63 MG/3 ML Inhal Soln UD IH SCH ×4 (07:11→21:03)
[2017-12-07 07:30] LABS: HEMOGLOBIN 9.1 g/dL (12.0-16.0)
[2017-12-07] MEDS: Potassium Chloride 20 mEq ER Tab PO SCH (08:01)
[2017-12-07 08:05] LABS: BLOOD UREA NITROGEN 33 mg/dL (7-21); CALCIUM 8.9 mg/dL (8.4-10.5); GFR AFRICAN-AMERICAN > 60; GFR NON-AFRICAN AMERICAN > 60
--- NOTE | 2017-12-07 08:34 | PN ---
DATE: 12/06/2017 SUBJECTIVE: This 87-year-old female was examined at the bedside and this case was reviewed with her nurse, Augusta Fields, registered nurse. The patient was out of bed to chair, receiving Xopenex inhalational therapy treatment. Her Burleson catheter has been removed and she is still having episodes of urinary retention. She had a good GI response to MiraLax and Dulcolax suppository and at denies any complaints of obstipation. PHYSICAL EXAMINATION: VITAL SIGNS: Temperature was 98.3, respirations 18, pulse 68 and blood pressure 114/55 with a pulse ox of 96% on room air. HEENT: Head normocephalic, atraumatic. Eyes: No icterus. Ears: Clear. Throat: Noninjected. NECK: Supple. HEART: Regular S1, S2. LUNGS: With occasional rhonchi that clear with coughing. ABDOMEN: Soft. EXTREMITIES: No edema. SKIN: Without rash. NEUROLOGICAL: Deconditioned. VASCULAR: Legs warm to touch. PSYCHOLOGICAL: Alert and oriented x3. LABORATORY DATA: Hemoglobin 9.6, hematocrit 30.5. Sodium 131, K 4.7, chloride 94, bicarb 33, BUN 21, creatinine 0.6, random blood sugar 85. Stool for occult blood negative. IMPRESSION: An 87-year-old female with recent fall at home and comorbidities of chronic glaucoma, anxiety neurosis, syndrome of inappropriate antidiuretic hormone, chronic obstructive pulmonary disease, obstipation, history of colon cancer, anemia of chronic disease, recent urinary dysuria with low-volume urinary retention and obstipation as well as chronic obstructive pulmonary disease. PLAN: Plan as discussed with the patient and nursing was to maintain the patient on physical and occupational therapy while maintaining high-risk fall protocol and monitoring I's and O's and postvoid residuals and doing straight catheterization for urinary output if urine retention is noted to be greater than 600 mL postvoid. The patient also will have a soft bland diet. She continues on Xopenex inhalational therapy, glaucoma eyedrops from home, MiraLax 17 g p.o. b.i.d., Lasix 20 mg IV daily, potassium chloride 20 mEq p.o. daily, p.o. fluid restriction of 1000 mL p.o. daily, Flomax 0.4 mg p.o. daily, Declomycin 300 mg p.o. b.i.d., Ativan 0.5 mg p.o. q. 6 hours p.r.n. anxiety. She is ordered to have a basic metabolic panel and hemoglobin/hematocrit in the a.m. and ultimate plan will be for discharge to home when medically stable. Greater than 35 minutes was spent in the care management, review of labs, medication and orders for this patient today with nursing and family. All questions were answered. Rossy Pena MD MTDD
[2017-12-07] MEDS: Brimonidine 0.15% 50 DROP/5 ML BOTTLE OU SCH ×2 (09:52→17:44)
[2017-12-07] MEDS: POLYETHYLENE GLYCOL 3350 17 GM/Dose PACKET PO SCH (09:54)
[2017-12-07] MEDS: guaiFENesin DM 100 mg-10 mg/5 ml UD PO SCH ×2 (13:55→17:34)
--- NOTE | 2017-12-07 14:58 | PN ---
DATE: 12/07/2017 SUBJECTIVE: This 87-year-old female was examined at her bedside and this case was reviewed in detail with herself and charge nurse, Kaylee Bryant, registered nurse. The patient remains weak and deconditioned status post a fall at home. She has multiple medical comorbidities including anemia, chronic glaucoma, urinary retention and chronic obstructive pulmonary disease. The patient has been recently started on Flomax. She has not had any postvoid residual urinary retention values greater than 350cc. Nursing is advised on the use of Burleson catheter for urine retention for straight cathing should this be necessary. The patient also complains of poor appetite. PHYSICAL EXAMINATION: VITAL SIGNS: Temperature is 98.8, respirations 20, pulse 61, blood pressure 112/40 with a pulse ox of 97%. HEENT: Head: Normocephalic, atraumatic. Eyes: No icterus. Ears: Clear. Throat: Noninjected. NECK: Supple. HEART: Regular S1, S2. LUNGS: Clear. ABDOMEN: Soft. EXTREMITIES: No edema. SKIN: Without rash. NEUROLOGICAL: Intact. PSYCHOLOGICAL: Alert. VASCULAR: Legs warm to touch. LABORATORY DATA: Hemoglobin 9.1, hematocrit 28.6. Sodium 134, K 4.7, chloride 92, bicarb 32, BUN 33, creatinine 0.7, random blood sugar 124. Stool for occult blood negative x2. IMPRESSION: An 87-year-old female, status post a fall at home with marked deconditioning in the setting of comorbidities of chronic obstructive pulmonary disease, glaucoma, anxiety neurosis, urinary retention and obstipation with newly noted anemia. PLAN: The plan as discussed with the patient and nursing will be to continue physical and occupational therapy for reconditioning and gait training while maintaining high fall risk protocol and a soft bland diet. She continues on Xopenex inhalational therapy three times daily, glaucoma eyedrops from home as labeled, MiraLax 17 g p.o. b.i.d., Flomax 0.4 mg p.o. daily, demeclocycline 300 mg p.o. b.i.d., fluid restriction of 1000 mL daily and Ativan 0.5 mg p.o. q. 6 hours p.r.n. anxiety. I will order Ensure 1 bottle t.i.d. for nutritional supplement. The patient will be ordered to have a basic metabolic panel in the a.m. and all of the above was discussed in detail with the patient and nursing at bedside. Greater than 35 minutes was spent in the care and management, review of labs, orders and discussion of the patient's care for this patient today. All questions were answered. Rossy Pena MD MTDD
[2017-12-07 16:41] VITALS: PULSE 70; TEMP 98.5; O2SAT 100
[2017-12-07] MEDS: Latanoprost 2.5 ml Opht Soln OU SCH (21:20)
[2017-12-08] MEDS: guaiFENesin DM 100 mg-10 mg/5 ml UD PO SCH ×2 (01:07→06:09)
[2017-12-08] MEDS: Levalbuterol 0.63 MG/3 ML Inhal Soln UD IH SCH (07:18)
[2017-12-08 07:42] LABS: BLOOD UREA NITROGEN 50 mg/dL (7-21); CALCIUM 9.2 mg/dL (8.4-10.5); GFR AFRICAN-AMERICAN > 60; GFR NON-AFRICAN AMERICAN > 60
[2017-12-08] MEDS: Potassium Chloride 20 mEq ER Tab PO SCH (08:30)
[2017-12-08 09:13] VITALS: BP 100/60
== END 2017-12-08 10:36 | disposition short-term general hospital (02) | DRG 945 ==
LOC: TRCU 20:39
PROVIDERS: ADMIT Internal Medicine; ATTEND Internal Medicine
PROC: F07Z8FZ Transfer Training Treatment using Assistive, Adaptive, Supportive or Protective Equipment (ICD-10-PCS; principal; 2017-12-06)
PROC: F07L6ZZ Therapeutic Exercise Treatment of Musculoskeletal System - Lower Back / Lower Extremity (ICD-10-PCS; 2017-12-06)
PROC: F08Z1FZ Dressing Techniques Treatment using Assistive, Adaptive, Supportive or Protective Equipment (ICD-10-PCS; 2017-12-07)
PROC: F08Z2FZ Grooming/Personal Hygiene Treatment using Assistive, Adaptive, Supportive or Protective Equipment (ICD-10-PCS; 2017-12-07)
DX: R53.1 Weakness (principal); E22.2 Syndrome of inappropriate secretion of antidiuretic hormone; J44.9 Chronic obstructive pulmonary disease, unspecified; D63.8 Anemia in other chronic diseases classified elsewhere; H40.9 Unspecified glaucoma; R33.9 Retention of urine, unspecified; F41.1 Generalized anxiety disorder; K59.00 Constipation, unspecified; Z85.038 Personal history of other malignant neoplasm of large intestine

== ENCOUNTER 2017-12-08 10:36 | Inpatient (IN) | payer MEDICARE, OTHER ==
--- NOTE | 2017-12-08 10:51 | ED PDOC ---
Arrival/HPI - General Time Seen by Provider: 12/08/17 10:39 Historian: Patient, Family (niece) - History of Present Illness Narrative History of Present Illness (Text): 12/08/17 10:48 Patient is an 87 yo female with past medical hx of COPD presents with shortness of breath and hypoxia noted at TCU this morning, was sent for evaluation. History supplemented by niece who states that she has appeared gradaully more sob since last night. Patient currently denies pain or discomfort but is "weaker " over past 1-2 days as per niece. History partially supplemented by staff from TCU notes. Past Medical History - Infectious Disease Hx of Infectious Diseases: None - Tetanus Immunization Tetanus Immunization: Unknown - Cardiac Hx Cardiac Disorders: No - Pulmonary Hx Chronic Obstructive Pulmonary Disease (COPD): Yes - Neurological Hx Neurological Disorder: No - HEENT Hx Glaucoma: Yes - Renal Hx Renal Disorder: No - Endocrine/Metabolic Hx Endocrine Disorders: No - Hematological/Oncological Hx Blood Disorders: No - Integumentary Hx Dermatological Disorder: No - Musculoskeletal/Rheumatological Hx Falls: Yes - Gastrointestinal Hx Gastrointestinal Disorders: No Other/Comment: colon sx - Genitourinary/Gynecological Hx Genitourinary Disorders: No - Psychiatric Hx Substance Use: No - Surgical History Other/Comment: colon sx - Anesthesia Hx Anesthesia Reactions: No Hx Malignant Hyperthermia: No - Suicidal Assessment Feels Threatened In Home Enviroment: No Family/Social History Family/Social History: Unknown Family HX Smoking Status: Never Smoked Hx Alcohol Use: No Hx Substance Use: No Hx Substance Use Treatment: No Allergies/Home Meds Allergies/Adverse Reactions: Allergies No Known Allergies Allergy (Verified 12/05/17 03:06) Review of Systems - Review of Systems Systems not reviewed;Unavailable: Acuity of Condition Constitutional: Fatigue. absent: Fevers Respiratory: SOB, Cough Cardiovascular: PERES. absent: Chest Pain Gastrointestinal: absent: Abdominal Pain Skin: absent: Rash Neurological: absent: Headache, Focal Weakness Physical Exam Vital Signs Reviewed: Yes Vital Signs Temp Pulse Resp BP Pulse Ox 12/08/17 13:53 140 H 39 H 97/81 L 90 L 12/08/17 13:51 118 H 42 H 12/08/17 11:59 101 H 85 L 12/08/17 11:45 138 H 100/52 L 12/08/17 10:36 99 F 124 H 28 H 89/52 L 87 L Temperature: Afebrile Pulse: Tachycardic Respiratory Rate: Tachypneic Appearance: Positive for: Ill-Appearing Pain Distress: Mild Mental Status: Positive for: Confused - Systems Exam Head: Present: Atraumatic Pupils: Present: PERRL Extroacular Muscles: Present: EOMI Mouth: Present: Dry Pharnyx: No: ERYTHEMA Neck: Present: Normal Range of Motion Respiratory/Chest: Present: Respiratory Distress, Wheezes, Tachypneic Cardiovascular: Present: Murmurs, Tachycardic Abdomen: No: Tenderness, Distention Rectal: No: Gross Blood Upper Extremity: No: Cyanosis, Edema Lower Extremity: No: Edema, CALF TENDERNESS Neurological: Present: Motor Func Grossly Intact, Normal Sensory Function Skin: Present: Pale Psychiatric: Present: Alert. No: Normal Insight, Normal Concentration Medical Decision Making ED Course and Treatment: Patient transferred from TCU. I discussed case with Dr. Pena, her PMD, and obtained further history from patient's niece at bedside. On exam, she is in respiratory distress, hypoxia, tachypneic, with bilateral expiratory wheezing. She is hypoxic despite nonrebreather face mask. Family reports prior history of emphysema although denies past cardiac history. Nebulizers and iv steroids initiated. Patient placed on high flow oxygen with saturations 85-88%, RR28. She denies chest pain. She is sleepy but answers questions appropriately. ABG reviewed reveals elevated CO2, hypoxia. I discussed advance directives with patient and niece. Patient states that she is willing to be intubated. She is in an irregularly irregular rhythm, consistent with atrial fibrillation with rapid ventricular response. Cardizem bolus ordered with close attention to blood pressure. EKG with st changes anterior leads although by history sob gradual for several days and she denies chest pain. No prior EKG for comparison. Patient after nebulizers, cardizem, has improved heart rate, less tachypneic, as well as improved respiratory rate. She states she "is feeling a little better " and continues to deny pain or discomfort. Abnormal labs reviewed with patient and family, including elevated troponin. Heparin bolus and drip ordered for atrial fibrillation, possible ACS, AMI. Dr. Pena updated, request Dr. Andrews for cardiology consult, I discussed exam , ekg and labs with Dr. Alva. Heparin continued. No history of active bleeding. ABG reviewed. Button Sewer Hand consulted. Patient initiated on BIpap was tolerating in ED, have endorsed re-evaluation of ABG to wind turbine machinist DR. Carmen hinojosa. Patient admitted to ICU. Critical nature of symptoms reviewed with patient and family. Differential diagnosis includes acute myocardial infarction, pulmonary embolism , congestive heart failure, pneumonia, arrhythmia. Patient currently not stable for CT angio, but is receiving heparin. Will hold beta yosi at this current time given severity of COPD and labile BP. Dr. Pena updated with treatment plan. - Critical Care Critical Care Minutes: 60 minutes - Lab Interpretations Microbiology Results: Microbiology Results 12/08/17 11:15 Blood Blood Culture - Final NO GROWTH AFTER 5 DAYS 12/08/17 11:15 Blood Gram Stain - Final TEST NOT PERFORMED 12/08/17 11:05 Blood Blood Culture - Final NO GROWTH AFTER 5 DAYS 12/08/17 11:05 Blood Gram Stain - Final TEST NOT PERFORMED 12/08/17 12:10 Urine Urine Culture - Final Staphylococcus Aureus Lab Results: 12/08/17 11:05 12/08/17 11:05 Lab Results 12/08/17 12:10: Urine Color Yellow, Urine Appearance Sl cloudy, Urine pH 6.0, Ur Specific [place] 1.025, Urine Protein Trace H, Urine Glucose (UA) Negative, Urine Ketones Negative, Urine Blood Small H, Urine Nitrate Negative, Urine Bilirubin Negative, Urine Urobilinogen 0.2, Ur Leukocyte Esterase Negative, Urine RBC 0 - 2, Urine WBC 0 - 2, Urine Bacteria Small, Hyaline Casts 0 - 2 12/08/17 11:10: pCO2 68 H, pO2 52.0 L, HCO3 32.7 H, ABG pH 7.29 L, ABG Total CO2 34.8 H, ABG O2 Saturation 88.2 L, ABG Base Excess 4.0 H, ABG Potassium 4.4, Glucose 168 H, Lactate 1.8, FiO2 100.0, Sodium 136.0, Chloride 101.0, Arterial Blood Potassium 4.4 12/08/17 11:08: POC Glucose (mg/dL) 152 H 12/08/17 11:05: PT 12.9 H, INR 1.12 H, APTT 34.9, D-Dimer, Quantitative 4610 H 12/08/17 11:05: Influenza Typ A,B (EIA) Negative for flu a/b 12/08/17 11:05: WBC 12.1 H D, RBC 3.84, Hgb 10.8 L, Hct 34.9 L, MCV 90.9 D, MCH 28.1, MCHC 30.9 L, RDW 14.4, Plt Count 282, MPV 8.8, Gran % 95.4 H, Lymph % (Auto) 2.7 L, [place] % (Auto) 1.9, Eos % (Auto) 0.0 L, Baso % (Auto) 0.0, Gran # 11.58 H, Lymph # (Auto) 0.3 L, [place] # (Auto) 0.2, Eos # (Auto) 0.0, Baso # (Auto ) 0.00, Neutrophils % (Manual) 92 H, Band Neutrophils % 3 H, Lymphocytes % ( Manual) 2 L, Monocytes % (Manual) 3, Platelet Evaluation Normal 12/08/17 11:05: Sodium 138, Potassium 4.7, Chloride 94 L, Carbon Dioxide 36 H, Anion Gap 13, BUN 53 H, Creatinine 1.0, Est GFR ( Amer) > 60, Est GFR ( Non-Af Amer) 53, Random Glucose 168 H, Calcium 9.6, Total Bilirubin 0.2, AST 72 H D, ALT 41, Alkaline Phosphatase 141 H D, Lactate Dehydrogenase 688, Total Creatine Kinase 237 H, CK-MB (CK-2) 3.4, CK-MB (CK-2) % Cancelled, Troponin I 0.53 H*, NT-Pro-B Natriuret Pep 8940 H, Total Protein 7.0, Albumin 3.4, Globulin 3.6, Albumin/Globulin Ratio 0.9 L - RAD Interpretation Radiology Orders: 12/08/17 10:46 CHEST PORTABLE [RAD] Stat Or Nurse Manager: ED Physician - EKG Interpretation Interpreted by ED Physician: Yes Type: 12 lead EKG Comparison: Different from prev. EKG - Medication Orders Current Medication Orders: Discontinued Medications Acetaminophen (Tylenol 325 Mg Supp) 325 mg RC STAT STA Stop: 12/09/17 22:31 Last Admin: 12/09/17 22:35 Dose: 325 mg MAR Pain/Vitals Document 12/09/17 22:35 STM (Rec: 12/09/17 22:36 STM [facility]) Presence of Pain Presence of Pain Yes Location Pain Location Body Abrasives Sales Representative Re-Assess: MAR Pain/Vitals Document 12/09/17 23:35 [facility] (Rec: 12/09/17 23:47 [id number] Pain Reassessment Is This A Pain ReAssessment? Yes Sleep Is patient sleeping during reassessment? Yes Albuterol/Ipratropium (Duoneb 3 Mg/0.5 Mg (3 Ml) Ud) 3 ml IH Q15M IVETTE Stop: 12/08/17 11:31 Last Admin: 12/08/17 11:26 Dose: 3 ml Alprazolam (Xanax) 0.25 mg PO ONCE ONE PRN Reason: Protocol Stop: 12/12/17 12:21 Last Admin: 12/12/17 12:34 Dose: 0.25 mg Behavioural Document 12/12/17 12:34 LC (Rec: 12/12/17 12:35 LC [facility] [id number] Maintenance Maintenance Dose No Nonmedicinal Nonmedicinal Interventions Redirect Therapeutic Communication Activity Give food/fluids See nurse's notes Behavior Behavior for Medication: Anxiety Continuous pacing/restlessness Pulling IV lines/tubes/ catheter Re-Assess: Reassess Psych Meds Document 12/12/17 13:34 LC (Rec: 12/12/17 14:12 LC [facility] [id number] Reassess Psych Med Effective Alprazolam (Xanax) 0.25 mg PO ONCE ONE PRN Reason: Protocol Stop: 12/12/17 20:50 Last Admin: 12/12/17 21:18 Dose: 0.25 mg Behavioural Document 12/12/17 21:18 PD (Rec: 12/12/17 21:19 PD [place] [id number]) Maintenance Maintenance Dose No Nonmedicinal Nonmedicinal Interventions Redirect Therapeutic Communication Activity Behavior Behavior for Medication: Anxiety Dangers to self/others Pulling IV lines/tubes/ catheter Re-Assess: Reassess Psych Meds Document 12/12/17 22:18 PD (Rec: 12/12/17 22:59 PD [place] [id number]) Reassess Psych Med Effective Arformoterol Tartrate (Brovana) 15 mcg IH [id number] IVETTE Last Admin: 12/14/17 07:15 Dose: 15 mcg Aspirin (Aspirin Supp) 300 mg STAT STA Stop: 12/08/17 12:58 Last Admin: 12/08/17 13:35 Dose: 300 mg Aspirin (Aspirin Supp) 300 mg RC DAILY [facility] Last Admin: 12/14/17 09:41 Dose: 300 mg MAR Pain/Vitals Document 12/14/17 09:41 JF (Rec: 12/14/17 09:41 [facility] Pain Reassessment Is This A Pain ReAssessment? No Sleep Is patient sleeping during reassessment? No Presence of Pain Presence of Pain No Re-Assess: MAR Pain/Vitals Document 12/14/17 10:41 JF (Rec: 12/14/17 10:[address] [facility] [id number]) Pain Reassessment Is This A Pain ReAssessment? No Sleep Is patient sleeping during reassessment? No Presence of Pain Presence of Pain No Brimonidine Tartrate (Alphagan P 0.15% Opht) 1 drop OU BID IVETTE Budesonide (Pulmicort Respules) 0.5 mg IH STAT STA Stop: 12/08/17 14:49 Budesonide (Pulmicort Respules) 0.25 mg IH [id number] [facility] Last Admin: 12/14/17 07:15 Dose: 0.25 mg Diltiazem HCl (Cardizem) 10 mg IV STAT [facility] Last Admin: 12/10/17 11:16 Dose: Diltiazem HCl (Cardizem) 60 mg PO STAT STA Stop: 12/10/17 16:55 Last Admin: 12/10/17 18:29 Dose: Diltiazem HCl (Cardizem) 60 mg PO QID [facility] Last Admin: 12/11/17 22:04 Dose: 60 mg MAR Pulse and Blood Pressure Document 12/11/17 22:04 PD (Rec: 12/11/17 22:05 PD [facility] [id number]) Pulse Pulse Rate (60-90) 64 Blood Pressure Blood Pressure (100/60-150/90) 128/78 Diltiazem HCl (Cardizem) 30 mg PO QID [facility] Last Admin: 12/14/17 14:11 Dose: Not Given Non-Admin Reason: NPO Furosemide (Lasix) 20 mg IVP ONCE ONE Stop: 12/09/17 11:55 Last Admin: 12/09/17 12:59 Dose: 20 mg MAR Blood Pressure Document 02/18/18 12:59 MMA (Rec: 12/09/17 12:59 MMA [facility] [id number][place] Blood Pressure Blood Pressure (100/60-150/90) 104/52 IVP Administration Document 12/09/17 12:59 MMA (Rec: 12/09/17 12:59 MMA [facility] [id number]) Charges for Administration # of IVP Administrations 1 Furosemide (Lasix) 40 mg IVP ONCE ONE Stop: 12/11/17 10:12 Last Admin: 12/11/17 10:28 Dose: 40 mg MAR Blood Pressure Document 12/11/17 10:28 LC (Rec: 12/11/17 10:28 LC [facility] [id number][place] Blood Pressure Blood Pressure (100/60-150/90) 122/57 IVP Administration Document 12/11/17 10:28 LC (Rec: 12/11/17 10:28 LC [facility] [id number]) Charges for Administration # of IVP Administrations 1 Furosemide (Lasix) 40 mg IVP Q12 IVETTE Furosemide (Lasix) 20 mg IVP Q12 IVETTE Furosemide (Lasix) 40 mg IVP ONCE ONE Stop: 12/11/17 19:37 Last Admin: 12/11/17 20:03 Dose: 40 mg MAR Blood Pressure Document 12/11/17 20:03 PD (Rec: 12/11/17 20:03 PD [id number]) Blood Pressure Blood Pressure (100/60-150/90) 135/60 IVP Administration Document 12/11/17 20:03 PD (Rec: 12/11/17 20:03 PD [id number]) Charges for Administration # of IVP Administrations 1 Heparin Sodium (Porcine) (Heparin) 3,100 units 70 units/kg (3100 units) IV ONCE ONE PRN Reason: Protocol Stop: 12/08/17 11:22 Last Admin: 12/08/17 12:40 Dose: 3,100 units eMAR Start Stop Document 12/08/17 12:40 HI (Rec: 12/08/17 12:41 HI [facility] [id number]) Intravenous Solution Start Date 12/08/17 Start Time 12:41 Sodium Chloride (Sodium Chloride 0.9%) 500 mls @ 1,000 mls/hr IV .Q30M STA Stop: 12/08/17 11:33 Last Admin: 12/08/17 11:57 Dose: 1,000 mls/hr eMAR Start Stop Document 12/08/17 11:57 HI (Rec: 12/08/17 11:57 HI [facility] [id number] Intravenous Solution Start Date 12/08/17 Start Time 11:57 Heparin Sodium/Sodium Chloride (Heparin 13819 Units/250ml 1/2 Normal Saline) 25 ,000 units in 250 mls @ 8.001 mls/hr IV .Q24H PRN; Protocol; 18 UNITS/KG/HR PRN Reason: ADJUST RATE PER PROTOCOL Last Admin: 12/14/17 08:47 Dose: 15 units/kg/hr, 6.668 mls/hr eMAR Start Stop Document 12/14/17 08:47 JF (Rec: 12/14/17 08:47 [facility]ILINGUAL OPERATOR) Intravenous Solution Start Date 12/14/17 Start Time 08:47 Titration Intervention Document 12/14/17 08:47 JF (Rec: 12/14/17 08:47 [facility]IL[facility] OPER[facility]) Titration Intake Cumulative Intake (Rx) 1,000 Waste Amount 0 Container Volume 250 Titration Dosing Titration Dose 15 IV Rate 6.668 Intake/Decrease Started/Running Cumulative Dose [id number] diltiaZEM IVPB 100mg in NS (Cardizem 100mg In Ns) 100 mls @ 5 mls/hr IV .Q20H PRN; Protocol; 5 MG/HR PRN Reason: TITRATE PER MD ORDER Last Titration: 12/10/17 03:08 Dose: 2.5 mg/hr, 2.5 mls/hr MAR Pulse Rate Document 12/10/17 03:08 [facility] (Rec: 12/10/17 03:09 [facility] [id number]) Pulse Rate Pulse Rate (60-90) 68 Titration Intervention Document 12/10/17 03:08 [facility] (Rec: 12/10/17 03:09 [facility] [id number]) Titration Intake Titration Intake 20 Cumulative Intake 20 Cumulative Intake (Rx) 220 Waste Amount 0 Container Volume 80 Titration Dosing Titration Dose 2.5 IV Rate 2.5 Intake/Decrease Decreased Cumulative Dose 220 Cefepime HCl (Maxipime 1gm) 1 gm in 100 mls @ 100 mls/hr IVPB Q12 IVETTE PRN Reason: Protocol Last Admin: 12/09/17 21:28 Dose: 100 mls/hr eMAR Start Stop Document 12/09/17 21:28 [facility] (Rec: 12/09/17 21:28 [facility]-BILINGUAL OPERATOR) Intravenous Solution Start Date 12/09/17 Start Time 21:28 End Date 12/09/17 End time 22:28 Total Infusion Time 60 Sodium Chloride (Sodium Chloride 0.9%) 1,000 mls @ 60 mls/hr IV .[id number] [facility] Last Admin: 12/08/17 17:00 Dose: 60 mls/hr eMAR Start Stop Document 12/08/17 17:00 JUR (Rec: 12/08/17 17:00 JUR [id number]) Intravenous Solution Start Date 12/08/17 Start Time 17:00 Vancomycin HCl (Vancomycin 750 Mg In Ns) 750 mg in 250 mls @ 167 mls/hr IVPB Q12H [facility] Last Admin: 12/10/17 03:34 Dose: 167 mls/hr eMAR Start Stop Document 12/10/17 03:34 [facility] (Rec: 12/10/17 03:34 [facility]-BILINGUAL OPERATOR) Intravenous Solution Start Date 12/10/17 Start Time 03:34 End Date 12/10/17 End time 05:04 Total Infusion Time 90 Dextrose/Sodium Chloride (Dextrose 5%/0.45% Ns 1000 Ml) 1,000 mls @ 50 mls/hr IV .Q20H [facility] Last Admin: 12/11/17 07:49 Dose: 50 mls/hr eMAR Start Stop Document 12/11/17 07:49 LC (Rec: 12/11/17 07:49 LC [facility] [id number]) Intravenous Solution Start Date 12/11/17 Start Time 07:49 diltiaZEM IVPB 100mg in NS (Cardizem 100mg In Ns) 100 mls @ 2.5 mls/hr IV .Q24H PRN; Protocol; 2.5 MG/HR PRN Reason: TITRATE PER PROTOCOL Last Admin: 12/10/17 03:16 Dose: 2.5 mg/hr, 2.5 mls/hr Comments: current bag infusing from previous order. eMAR Start Stop Document 12/10/17 03:16 [facility] (Rec: 12/10/17 03:18 [facility] [id number]) Intravenous Solution Start Date 12/10/17 Start Time 03:17 MAR Pulse Rate Document 02/19/18 03:16 [facility] (Rec: 12/10/17 03:18 [id number] Pulse Rate Pulse Rate (60-90) 62 Titration Intervention Document 12/10/17 03:16 [facility] (Rec: 12/10/17 03:18 [id number]) Titration Intake Waste Amount 15 Container Volume 85 Titration Dosing Titration Dose 2.5 IV Rate 2.5 Intake/Decrease Started Vancomycin HCl (Vancomycin 500mg In Ns) 500 mg in 100 mls @ 200 mls/hr IVPB .EXTRA DOSE ONE Stop: 12/10/17 11:14 Last Admin: 12/11/17 10:43 Dose: Cefepime HCl (Maxipime 1gm) 1 gm in 100 mls @ 100 mls/hr IVPB DAILY IVETTE PRN Reason: Protocol Stop: 12/13/17 22:01 Last Admin: 12/13/17 12:28 Dose: 100 mls/hr eMAR Start Stop Document 12/13/17 12:28 MB (Rec: 12/13/17 12:29 MB [facility]IL[facility]PER[facility]) Intravenous Solution Start Date 12/13/17 Start Time 10:00 End Date 12/13/17 End time 11:00 Total Infusion Time 60 Vancomycin HCl (Vancomycin 500mg In Ns) 500 mg in 100 mls @ 200 mls/hr IVPB Q12 IVETTE Last Admin: 12/14/17 09:40 Dose: 200 mls/hr eMAR Start Stop Document 12/14/17 09:40 JFNirmal (Rec: 12/14/17 09:41 JEFF [facility]BILINGUAL OPER[facility]) Intravenous Solution Start Date 12/14/17 Start Time 09:40 End Date 12/14/17 End time 10:10 Total Infusion Time 30 Dextrose/Sodium Chloride (Dextrose 5%/0.45% Ns 1000 Ml) 1,000 mls @ 75 mls/hr IV .[id number] [facility] Last Admin: 12/13/17 08:50 Dose: 75 mls/hr eMAR Start Stop Document 12/13/17 08:50 MB (Rec: 12/13/17 08:50 MB [facility]IL[facility]PER[facility]) Intravenous Solution Start Date 12/13/17 Start Time 08:35 Dextrose (Dextrose 5% In Water 1000 Ml) 1,000 mls @ 75 mls/hr IV .[id number] [facility] Last Admin: 12/14/17 12:59 Dose: Insulin Human Regular (Humulin R Low) 0 units SC ACHS IVETTE PRN Reason: Protocol Last Admin: 12/14/17 11:59 Dose: Not Given Non-Admin Reason: NPO Comments: patient lethargic. PMD made aware, OK. no further orders given MAR Blood Glucose Document 12/14/17 11:[address] [facility] (Rec: 12/14/17 11:59 [id number]) Blood Glucose Finger Stick Blood Glucose (70-120) 207 Levalbuterol HCl (Xopenex) 0.63 mg IH [id number] PRN PRN Reason: Shortness of Breath Last Admin: 12/10/17 13:58 Dose: 0.63 mg Methylprednisolone (Solu-Medrol) 125 mg IVP STAT STA Stop: 12/08/17 10:47 Last Admin: 12/08/17 11:05 Dose: 125 mg IVP Administration Document 12/08/17 11:05 SRE (Rec: 12/08/17 11:21 SRE [id number]) Charges for Administration # of IVP Administrations 1 Methylprednisolone (Solu-Medrol) 40 mg IVP Q12 [facility] Last Admin: 12/11/17 09:29 Dose: 40 mg IVP Administration Document 12/11/17 09:29 LC (Rec: 12/11/17 09:29 LC [facility] [id number]) Charges for Administration # of IVP Administrations 1 Methylprednisolone (Solu-Medrol) 20 mg IVP Q12 [facility] Last Admin: 12/14/17 09:41 Dose: 20 mg IVP Administration Document 12/14/17 09:[address] [facility] (Rec: 12/14/17 09:41 [facility]-BILING[facility] OPER[facility]) Charges for Administration # of IVP Administrations 1 Morphine Sulfate (Morphine) 0.5 mg IVP STAT STA Stop: 12/10/17 20:02 Last Admin: 12/10/17 20:17 Dose: 0.5 mg IVP Administration Document 12/10/17 20:17 JLIBAN (Rec: 12/10/17 20:17 JZI [facility] [place] Charges for Administration # of IVP Administrations 1 Morphine Sulfate (Morphine) 1 mg IVP STAT STA Stop: 12/10/17 23:22 Last Admin: 12/10/17 23:40 Dose: 1 mg MAR Pain Assessment Document 12/10/17 23:40 JZI (Rec: 12/10/17 23:[address] [facility] Pain Reassessment Is this a pain reassessment? No Sleep Is patient sleeping during reassessment? No Presence of Pain Presence of Pain No Description Intensity of Pain at present 0 Acceptable Level of Pain 0 Pain Behavior Restlessness Thrashing Effectiveness of Techniques JUST GIVING MED. IVP Administration Document 12/10/17 23:40 JZI (Rec: 12/10/17 23:[address] [facility]-13C) Charges for Administration # of IVP Administrations 1 Re-Assess: [facility] Pain Assessment Document 12/11/17 00:40 JZI (Rec: 12/11/17 01:[address] [facility]) Pain Reassessment Is this a pain reassessment? No Sleep Is patient sleeping during reassessment? Yes Description Effectiveness of Techniques EFFECTIVE Morphine Sulfate (Morphine) 0.5 mg IVP STAT STA Stop: 12/11/17 11:40 Last Admin: 12/11/17 12:22 Dose: 0.5 mg [facility] Pain Assessment Document 12/11/17 12:22 LC (Rec: 12/11/17 12:22 LC [facility] [id number]) Pain Reassessment Is this a pain reassessment? No IVP Administration Document 12/11/17 12:22 LC (Rec: 12/11/17 12:22 LC [facility] [id number]) Charges for Administration # of IVP Administrations 1 Re-Assess: [facility] Pain Assessment Document 12/11/17 13:22 LC (Rec: 12/11/17 14:03 LC [facility] [id number][place] Pain Reassessment Is this a pain reassessment? Yes Sleep Is patient sleeping during reassessment? Yes Morphine Sulfate (Morphine) 1 mg IVP ONCE ONE Stop: 12/11/17 21:10 Last Admin: 12/11/17 23:41 Dose: 1 mg MAR Pain Assessment Document 12/11/17 23:41 PD (Rec: 12/11/17 23:42 PD [facility] [id number]) Pain Reassessment Is this a pain reassessment? No Presence of Pain Presence of Pain Yes Pain Scale Used Pain Scale Used FLACC IVP Administration Document 12/11/17 23:41 PD (Rec: 12/11/17 23:42 PD [facility] [id number]) Charges for Administration # of IVP Administrations 1 Re-Assess: MAR Pain Assessment Document 12/12/17 00:41 LC (Rec: 12/12/17 07:27 LC [facility] [id number]) Pain Reassessment Is this a pain reassessment? Yes Sleep Is patient sleeping during reassessment? Yes Morphine Sulfate (Morphine) 1 mg IVP ONCE ONE Stop: 12/11/17 23:46 Last Admin: 12/11/17 23:46 Dose: Morphine Sulfate (Morphine) 0.5 mg IVP STAT STA Stop: 12/12/17 07:33 Morphine Sulfate (Morphine) 0.5 mg IVP STAT STA Stop: 12/12/17 07:36 Last Admin: 12/12/17 07:55 Dose: 0.5 mg [facility] Pain Assessment Document 12/12/17 07:55 LC (Rec: 12/12/17 07:55 LC [facility] [id number][place] Pain Reassessment Is this a pain reassessment? No IVP Administration Document 12/12/17 07:55 LC (Rec: 12/12/17 07:55 LC [facility] [id number]) Charges for Administration # of IVP Administrations 1 Re-Assess: [facility] Pain Assessment Document 12/12/17 08:55 LC (Rec: 12/12/17 10:24 LC [facility] [id number][place] Pain Reassessment Is this a pain reassessment? Yes Sleep Is patient sleeping during reassessment? Yes Morphine Sulfate (Morphine) 0.5 mg IVP Q4H PRN PRN Reason: Agitation Last Admin: 12/13/17 06:22 Dose: 0.5 mg [facility] Pain Assessment Document 12/13/17 06:22 PD (Rec: 12/13/17 06:22 PD [facility] [place] Pain Reassessment Is this a pain reassessment? No Sleep Is patient sleeping during reassessment? No Presence of Pain Presence of Pain Yes Pain Scale Used Pain Scale Used FLACC IVP Administration Document 12/13/17 06:22 PD (Rec: 12/13/17 06:22 PD [facility] [place]) Charges for Administration # of IVP Administrations 1 Morphine Sulfate (Morphine) 1 mg IVP Q4H PRN PRN Reason: Agitation Last Admin: 12/14/17 12:45 Dose: 1 mg MAR Pain Assessment Document 12/14/17 12:45 JF (Rec: 12/14/17 12:45 [facility]) Pain Reassessment Is this a pain reassessment? Yes Sleep Is patient sleeping during reassessment? No Presence of Pain Presence of Pain Yes Location Pain Location Body Site Generalized Description Pain Behavior Facial Grimacing VS Changes IVP Administration Document 12/14/17 12:45 JF (Rec: 12/14/17 12:45 [facility]) Charges for Administration # of IVP Administrations 1 Re-Assess: AGUS Pain Assessment Document 12/14/17 13:45 JF (Rec: 12/14/17 14:[address] [facility] [id number]) Pain Reassessment Is this a pain reassessment? Yes Nitroglycerin (Nitro-Bid 2% Oint) 1 ea TOP Q4 PRN PRN Reason: Systolic Blood Pressure Pantoprazole Sodium (Protonix Inj) 40 mg IVP DAILY [facility] Last Admin: 12/12/17 10:24 Dose: 40 mg IVP Administration Document 12/12/17 10:24 LC (Rec: 12/12/17 10:24 [facility] [id number] Charges for Administration # of IVP Administrations 1 Pantoprazole Sodium (Protonix Inj) 20 mg IVP DAILY [facility] Last Admin: 12/14/17 09:41 Dose: 20 mg IVP Administration Document 12/14/17 09:41 JF (Rec: 12/14/17 09:41 [facility]) Charges for Administration # of IVP Administrations 1 Vitamin A (Vitamin A & D Oint Ud Foilpak) 1 ea TOP BID PRN PRN Reason: Dry mouth Last Admin: 12/13/17 17:45 Dose: 1 ea Disposition/Present on Arrival - Present on Arrival Any Indicators Present on Arrival: No History of DVT/PE: No History of Uncontrolled Diabetes: No Urinary Catheter: No History Surgical Site Infection Following: None - Disposition Have Diagnosis and Disposition been Completed?: Yes Diagnosis: COPD with acute exacerbation, Atrial fibrillation with rapid ventricular response, Elevated troponin, Abnormal CXR, Respiratory distress Disposition: HOSPITALIZED Disposition Time: 12:00 Patient Plan: Admission, ICU Condition: CRITICAL
[2017-12-08] MEDS: Albuterol-Ipratrop 3 mg / 0.5 (3 ml) UD IH SCH ×3 (11:00→11:26)
[2017-12-08] MEDS ORDERED: Sodium Chloride 0.9% 500 ML IV STA (11:04)
[2017-12-08 11:32] LABS: ARTERIAL BLOOD GAS HCO3 32.7 mmol/L (21-28); ARTERIAL BLOOD GAS O2 SAT 88.2 % (95-98); ARTERIAL BLOOD GAS PCO2 68 mm/Hg (35-45); ARTERIAL BLOOD GAS PH 7.29 (7.35-7.45); ARTERIAL BLOOD GAS TCO2 34.8 mmol.L (22-28)
[2017-12-08 11:36] LABS: ALB/GLOB RATIO 0.9 (1.1-1.8); ALBUMIN 3.4 g/dL (3.0-4.8); ALT/SGPT 41 U/L (7-56); AST/SGOT 72 U/L (14-36); BLOOD UREA NITROGEN 53 mg/dL (7-21); CALCIUM 9.6 mg/dL (8.4-10.5); GFR AFRICAN-AMERICAN > 60; GFR NON-AFRICAN AMERICAN 53
[2017-12-08 11:37] LABS: GRAN # 11.58 (1.4-6.5); GRAN % 95.4 % (50.0-68.0); HEMOGLOBIN 10.8 g/dL (12.0-16.0); LYMPH # 0.3 (1.2-3.4); LYMPH % 2.7 % (22.0-35.0); MEAN CELL VOLUME 90.9 fl (80.0-105.0); MEAN CORPUSCULAR HEMOGLOBIN 28.1 pg (25.0-35.0); MEAN CORPUSCULAR HGB CONC 30.9 g/dl (31.0-37.0); MEAN PLATELET VOLUME 8.8 fl (7.0-11.0); MONO # 0.2 (0.1-0.6); MONO % 1.9 % (1.0-6.0); PLATELET COUNT 282 10^3/uL (120.0-450.0); RBC 3.84 10^6/uL (3.5-6.1); RED CELL DISTRIBUTION WIDTH 14.4 % (11.5-14.5); WHITE BLOOD COUNT 12.1 10^3/ul (4.5-11.0)
[2017-12-08 11:46] LABS: INR 1.12 (0.93-1.08); PARTIAL THROMBOPLASTIN TIME 34.9 Seconds (25.1-36.5); PROTHROMBIN TIME 12.9 SECONDS (9.4-12.5)
[2017-12-08 12:17] LABS: B-TYPE NATRIURETIC PEPTIDE 8940 pg/mL (0-450); CK-MB 3.4 ng/mL (0.0-3.6); TROPONIN I 0.53 ng/mL
[2017-12-08 12:24] LABS: URINE BILIRUBIN NEGATIVE (NEGATIVE); URINE BLOOD SMALL (NEGATIVE); URINE GLUCOSE (UA) NEGATIVE (NEGATIVE); URINE LEUKOCYTE ESTERASE NEGATIVE Leu/uL (NEGATIVE); URINE NITRATE NEGATIVE (NEGATIVE); URINE PROTEIN TRACE mg/dL (<30 mg/dL); URINE UROBILINOGEN 0.2 E.U./dL (<1 E.U./dL)
[2017-12-08 12:26] LABS: URINE APPEARANCE SL CLOUDY (CLEAR); URINE COLOR YELLOW (YELLOW)
[2017-12-08] MEDS: Heparin25000 units/250ml 1/2NS 25,000 UNITS/250 ML BAG IV PRN (12:34)
[2017-12-08 12:55] LABS: BAND 3 % (0-2); LYMPHOCYTE 2 % (22.0-35.0); MONOCYTE 3 % (1.0-6.0); NEUTROPHIL 92 % (50.0-70.0); PLATELET ESTIMATE NORMAL (NORMAL)
[2017-12-08 13:22] LABS: URINE BACTERIA SMALL (NEG); URINE HYALINE CAST 0 - 2 /hpf; URINE WBC 0 - 2 /hpf (0-6)
[2017-12-08 13:23] LABS: URINE RBC 0 - 2 /hpf (0-2)
[2017-12-08] MEDS: diltiaZEM IVPB 100mg in NS 100 ML IV PRN (13:34)
[2017-12-08 14:17] LABS: ARTERIAL BLOOD GAS HCO3 31.3 mmol/L (21-28); ARTERIAL BLOOD GAS HEMOGLOBIN 11.4 g/dL (11.7-17.4); ARTERIAL BLOOD GAS O2 CAPACITY 15.7 mL/dl (16-24); ARTERIAL BLOOD GAS O2 CONTENT 14.8 ML/dl (15-23); ARTERIAL BLOOD GAS O2 SAT 94.4 % (95-98); ARTERIAL BLOOD GAS PCO2 65 mm/Hg (35-45); ARTERIAL BLOOD GAS PH 7.29 (7.35-7.45); ARTERIAL BLOOD GAS TCO2 33.3 mmol.L (22-28)
--- NOTE | 2017-12-08 14:41 | RAD ---
HISTORY: sob COMPARISON: 12/01/2017 FINDINGS: LUNGS: Extensive opacity at right base, suspicious for pneumonia, likely right lower lobe. PLEURA: Small right pleural effusion. Bilateral apical pleural thickening, unchanged. No left pleural effusion. No pneumothorax. CARDIOVASCULAR: Normal. OSSEOUS STRUCTURES: No significant abnormalities. VISUALIZED UPPER ABDOMEN: Normal. OTHER FINDINGS: None. IMPRESSION: Probable right lower lobe infiltrate. Suspect pneumonia. Small right pleural effusion.
[2017-12-08] MEDS ORDERED: Budesonide 0.5 mg/2 ml Inhal Susp UD IH STA (14:48)
[2017-12-08] MEDS ORDERED: cefTRIAXone 1 gm 1 GM/100 ML BAG IVPB SCH (15:00)
[2017-12-08 15:19] VITALS: BMI 14.1
[2017-12-08] MEDS ORDERED: Sodium Chloride 0.9% 1,000 ML IV SCH (16:00)
[2017-12-08] MEDS ORDERED: Levalbuterol 0.63 MG/3 ML Inhal Soln UD IH PRN (16:08)
[2017-12-08] MEDS ORDERED: Vancomycin 1 g Inj IVPB SCH ×2 (16:15→22:00)
[2017-12-08] MEDS: Insulin Reg-LOW-Coverage SC SCH ×2 (16:30→22:31)
--- NOTE | 2017-12-08 16:42 | CON ---
DATE: 12/08/2017 [facility] NOTE REQUESTING PHYSICIAN: Rossy Pena M.D. CHIEF COMPLAINT: Patient presented with shortness of breath and respiratory failure. HISTORY OF PRESENT ILLNESS: Ms. Schwarz, she is a 87-year-old female that was in PCU and developed shortness of breath noted to be hypoxic and was transferred to the emergency room. The patient at that time had arterial blood gas that showed respiratory acidosis with hypoxia and the patient was labored and lethargic. She was placed on high-flow oxygen and given aggressive respiratory treatments and her respiratory status improved. At this time, she is on BiPAP with settings of 12/6 and O2 support and she is comfortable with good O2 saturation and family is at bedside. Patient is at present, hemodynamically stable. She does have AFib with rapid response at this time. Heart rate is approximately 110. No fever, chills. No nausea or vomiting. She is awake and alert. No complaints of chest pain or abdominal pain. No diarrhea. PAST MEDICAL HISTORY: Significant for COPD, atrial fibrillation and pulmonary fibrosis. ALLERGIES: PATIENT HAS NO KNOWN ALLERGIES. CURRENT MEDICATIONS: Can be evaluated as per the nurse's intake form. SOCIAL HISTORY: No history of smoking or EtOH abuse. No drug abuse. FAMILY HISTORY: Noncontributory. REVIEW OF SYSTEMS: CONSTITUTIONAL: All negative. HEENT: All negative. RESPIRATORY: The patient had the shortness of breath. CARDIOVASCULAR: She has a tachycardia. GASTROINTESTINAL: All negative. : All negative. MUSCULOSKELETAL: All negative. NEUROPSYCHIATRIC: Patient did initially presented very lethargic. ENDOCRINE: All negative. HEMATOLOGIC: All negative. IMMUNOLOGIC: All negative. INTEGRITY: All negative. PHYSICAL EXAMINATION: VITAL SIGNS: Note that her temperature is 99, her pulse is 109, respirations are 28 and BP is 100/52, O2 saturation on the BiPAP is 95%. HEENT: Head is atraumatic, normocephalic. Eyes: Reactive to light. Ear, nose and throat: Seemed to be within normal limits. NECK: Supple. No JVD. No thyroid enlargement or lymph nodes. HEART: Has regular rate and rhythm. Normal S1, S2. LUNGS: Reveal decreased breath sounds bilaterally with occasional rhonchi at the bases. ABDOMEN: Soft. Decreased bowel sounds. No organomegaly noted. GENITALIA: Deferred. RECTAL: Deferred. MUSCULOSKELETAL: No joint deformities. EXTREMITIES: Reveal no significant edema. NEUROLOGICAL: She seemed to be grossly intact. LABORATORY DATA: As far as her laboratories are concerned her white count is 12.1, hemoglobin is 10.8 and her hematocrit is 34.9 with platelets of 282,000. Patient's PT is 12.9, INR is 1.12 and PTT is 34.9, D-dimer is 4610. Arterial blood gas reveals a pH of 7.29, pCO2 of 65, pO2 of 66. As far as her sodium is 138, potassium 4.7, chloride 94, CO2 of 36, BUN of 53, creatinine of 1.0 and a glucose of 152. Patient's troponin is elevated at 0.53 and her BNP is 8940. As far as her chest x-ray is concerned, it reveals diffuse interstitial changes, possible fibrosis. The patient has right lower pleural effusion and possible right lower lobe infiltrate. This is an unofficial reading. IMPRESSION: This patient has respiratory failure, most likely secondary to congestive heart failure. There maybe a component of pneumonia in the right lower lobe. Patient has a right-sided small pleural effusion and is noted to be hypercapnic and hypoxic. She has a history of emphysema. There maybe a component of exacerbation and it is noted that her troponins are elevated, must rule out myocardial infarction. The patient has atrial fibrillation with rapid ventricular response and initially was hypotensive, but it has improved with appropriate respiratory therapy. PLAN: We will continue with BiPAP and monitor her chest x-ray and arterial blood gas closely. The patient will get aggressive pulmonary toilet. We will give her bronchodilators as well as Solu-Medrol and continue with appropriate diuresis. Patient has been started on heparin IV and is on IV diltiazem for her tachycardia. We will follow with antibiotics and we will continue to treat aggressively and monitor closely along with the other consultants and the primary care doctor. Rg Morales MD
[2017-12-08] MEDS: Vancomycin 750mg 750 MG/250 ML BAG IVPB SCH (18:29)
[2017-12-08 18:56] LABS: ALB/GLOB RATIO 0.9 (1.1-1.8); ALBUMIN 3.1 g/dL (3.0-4.8); ALT/SGPT 40 U/L (7-56); AST/SGOT 55 U/L (14-36); BLOOD UREA NITROGEN 55 mg/dL (7-21); CALCIUM 9.3 mg/dL (8.4-10.5); GFR AFRICAN-AMERICAN > 60; GFR NON-AFRICAN AMERICAN > 60; MAGNESIUM 2.5 mg/dL (1.7-2.2)
[2017-12-08 19:37] LABS: CK MB% 2.2 % (2.5-3.0); CK-MB 5.3 ng/mL (0.0-3.6); TROPONIN I 0.38 ng/mL
[2017-12-08] MEDS ORDERED: Albuterol-Ipratrop 3 mg / 0.5 (3 ml) UD IH SCH (20:00)
[2017-12-08] MEDS: Arformoterol 15 mcg/2 ml Inh Sol IH SCH (20:20)
[2017-12-08] MEDS: Budesonide 0.25 mg/2 ml Inhal Susp UD IH SCH (20:21)
[2017-12-08] MEDS: Cefepime 1gm in NS 100ml 1 GM/100 ML BAG IVPB SCH (22:13)
[2017-12-08] MEDS: MethylPREDNISolone 40 mg Vial IVP SCH (22:20)
--- NOTE | 2017-12-09 01:00 | HP ---
DATE OF EXAM: 12/08/2017 HISTORY AND PHYSICAL CRITICAL CARE PROGRESS NOTE HISTORY OF PRESENT ILLNESS: This 87-year-old female who was examined in the emergency room in the presence of Dr. Uche Ferreira and her niece, Monet Schwarz, . The patient presented with shortness of breath, respiratory distress and was noted to be in new-onset atrial fibrillation with hypoxemia. Additional workup revealed right lower lung pneumonia, rapid atrial fibrillation, hypoxemia, prerenal azotemia and elevated troponin level raising concern of acute OR. The patient in the emergency room was treated with pulmonary toiletry, nonrebreather 100% oxygen Ventimask, IV fluid resuscitation and is being readied for intensive care admission. A lengthy discussion was held with the patient and niece present at bedside. The patient at present is requesting full cardiac resuscitation including mechanical intubation and respiratory support as necessary. Niece was present for the interview and is aware and in agreement with the above. 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 The patient was also admitted with newly noted anemia and was too weak and deconditioned for any GI testing at this time. The patient was being treated for obstipation. CURRENT MEDICATIONS: Included MiraLax 17 g p.o. b.i.d., Xopenex inhalational therapy t.i.d., glaucoma eye eyedrops from home as labeled, demeclocycline 300 mg p.o. b.i.d., Tylenol 650 p.o. q. 6 hours p.r.n. pain or temperature greater than 101. REVIEW OF SYSTEMS: On constitutional review, there were no complaints of fever or chills. Eye review, chronic glaucoma. Ear review, no hearing loss. Throat review, no swallowing difficulty. Neck review, no stiffness. Cardiac review, no chest pain. No history of atrial fibrillation or hypertension in her past. Pulmonary: Chronic obstructive pulmonary disease. GI: History of colon cancer and intestinal obstruction in the past. : Recent urinary retention. Vascular: No claudication. Skin: No ulcers. Neurological: No knowledge of stroke. Hematological: Recent new-onset anemia. Endocrinological: No knowledge of diabetes mellitus. FAMILY HISTORY: Noncontributory. 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 ALLERGIES: NO KNOWN ALLERGIES TO MEDICATION. PHYSICAL EXAMINATION: VITAL SIGNS: front desk monitor showing atrial fibrillation. Temperature 99, respirations 28, pulse 118, blood pressure 100/52, pulse ox ranging from 85-92% with 100% nonrebreather. HEENT: Head: Normocephalic, atraumatic. Eyes: No icterus. Ears: Clear. Throat: Noninjected. NECK: Supple. HEART: Irregular S1, S2. LUNGS: With occasional rhonchi at the base that cleared with coughing. ABDOMEN: Soft. EXTREMITIES: No edema. SKIN: Without rash. NEUROLOGICAL: Deconditioned. VASCULAR: Legs warm to touch. PSYCHOLOGICAL: Alert and able to answer questions. NEUROLOGIC: Moves all 4 extremities. GENITOURINARY: Burleson catheter draining clear yellow urine. LABORATORY DATA: Sodium 138, K 4.7, chloride 94, carbon dioxide 36, BUN 53, creatinine 1.0, random blood sugar 168. Bilirubin 0.2, AST 72, ALT 41, alk phos 141. CPK 237, troponin 0.53. BNP 8940. White count 12,100, hemoglobin 10.8, hematocrit 34.9, platelets 282,000. PT/INR 1.12, PTT 34.9. Urinalysis showed small bacteria. Influenza A, B serology negative. Chest x-ray showed suggestion of a right lower lung pneumonia with a small pleural effusion. No pneumothorax. EKG showed atrial fibrillation with nonspecific ST-T wave changes. IMPRESSION: An 87-year-old female with acute respiratory distress in the setting of new-onset hospital-acquired pneumonia with comorbidities of chronic obstructive pulmonary disease, chronic glaucoma, prerenal azotemia, rule out myocardial infarction, hyperglycemia, glaucoma. PLAN: Plan as discussed with the patient, nursing, Dr. Uche Ferreira from the emergency room and family at bedside will be to admit this patient to critical care. She remains a full code and will have respiratory intubation if necessary. She will have serial labs including comprehensive metabolic panel, CBC and PTT monitored. Blood, urine and nasal MRSA swabs have been obtained. The patient will be treated with Cardizem parenterally. She has been bolused and is now on a 5 mg per hour drip, dual nebulizer therapy q. 6 hours, IV heparin protocol for atrial fibrillation, regular low-dose insulin protocol before meals and at bedtime, cefepime 1 g IV q. 12, vancomycin 750 mg IV q. 12, Pulmicort inhalational therapy q. 12, 0.9 saline at 60 mL/hour. The patient has received a 1 L bolus to date. She will be treated with Solu-Medrol 40 mg IV q. 12, having received 125 mg IV stat. Consultation with Dr. Rg Morales from Intensive Care as well as Dr. Simone Alva from Cardiology has been requested. Burleson catheter will be maintained and bedside physical therapy will be ordered. Based on the patient's clinical progress, decision for intubation will be decided. Greater than 75 minutes was spent in the care and management, review of x-rays, labs, medication, ordering of testings, consults, medication and review with the patient and family at bedside. All questions were answered. Overall prognosis remains guarded. Rossy Pena MD MTDD
[2017-12-09 03:22] LABS: TROPONIN I 0.21 ng/mL
[2017-12-09] MEDS: diltiaZEM IVPB 100mg in NS 100 ML IV PRN (03:57)
[2017-12-09] MEDS: Vancomycin 750mg 750 MG/250 ML BAG IVPB SCH ×2 (04:00→16:21)
[2017-12-09 04:20] LABS: GRAN # 11.64 (1.4-6.5); HEMOGLOBIN 9.8 g/dL (12.0-16.0); LYMPH # 0.3 (1.2-3.4); LYMPH % 2.7 % (22.0-35.0); MEAN CELL VOLUME 91.9 fl (80.0-105.0); MEAN CORPUSCULAR HEMOGLOBIN 27.5 pg (25.0-35.0); MEAN PLATELET VOLUME 9.1 fl (7.0-11.0); MONO # 0.4 (0.1-0.6); MONO % 3.3 % (1.0-6.0); RBC 3.56 10^6/uL (3.5-6.1); RED CELL DISTRIBUTION WIDTH 14.2 % (11.5-14.5); WHITE BLOOD COUNT 12.4 10^3/ul (4.5-11.0)
[2017-12-09] MEDS: Arformoterol 15 mcg/2 ml Inh Sol IH SCH ×2 (07:49→20:50)
[2017-12-09] MEDS: Budesonide 0.25 mg/2 ml Inhal Susp UD IH SCH ×2 (07:49→20:50)
--- NOTE | 2017-12-09 08:13 | CARD ---
APPROVED REPORT EKG Measurement Heart [id number] <Conclusion> Atrial fibrillation with rapid ventricular response Left axis deviation Septal infarct, age undetermined STTW changes c/w ischemia
[2017-12-09 08:25] LABS: ARTERIAL BLOOD GAS HCO3 22.5 mmol/L (21-28); ARTERIAL BLOOD GAS HEMOGLOBIN 13.1 g/dL (11.7-17.4); ARTERIAL BLOOD GAS O2 CAPACITY 18.5 mL/dl (16-24); ARTERIAL BLOOD GAS O2 CONTENT 18.3 ML/dl (15-23); ARTERIAL BLOOD GAS O2 SAT 99.1 % (95-98); ARTERIAL BLOOD GAS PCO2 49 mm/Hg (35-45); ARTERIAL BLOOD GAS PH 7.27 (7.35-7.45)
[2017-12-09] MEDS: Insulin Reg-LOW-Coverage SC SCH ×4 (08:40→22:06)
[2017-12-09] MEDS: MethylPREDNISolone 40 mg Vial IVP SCH ×2 (10:10→21:28)
[2017-12-09] MEDS: Cefepime 1gm in NS 100ml 1 GM/100 ML BAG IVPB SCH ×2 (10:10→21:28)
--- NOTE | 2017-12-09 10:41 | PN ---
DATE: 12/09/2017 PERSONAL INJURY SPECIALIST NOTE SUBJECTIVE: The patient is lying in bed, awake and alert. Still requires BiPAP for respiratory support. O2 saturation is good, but the patient is slightly tachypneic. No complaints of chest pain. No nausea or vomiting. No diarrhea. No abdominal pain. PHYSICAL EXAMINATION: VITAL SIGNS: Physical exam note that her temperature is 97.7, pulse is 69, respirations are 33 and BP is 108/42. SKIN: Warm and dry. HEENT: Head atraumatic, normocephalic. Eyes reactive to light. Ear, nose and throat seemed to be within normal limits. NECK: Supple. No JVD. No thyroid enlargement. No lymph nodes. HEART: Has regular rate and rhythm. Normal S1 and S2. LUNGS: Reveal decreased breath sounds bilaterally with occasional rhonchi. ABDOMEN: Soft. Decreased bowel sounds. GENITALIA AND RECTAL: Deferred. MUSCULOSKELETAL: No joint deformities. EXTREMITIES: Reveal trace lower extremity edema. NEUROLOGICALLY: The patient is awake and alert. Moving all extremities. LABORATORY DATA: Her white count is 12.4, hemoglobin is 9.8, hematocrit 32.7 with platelets of 302,000. Chemistry and arterial blood gases are pending. IMPRESSION: This patient has respiratory failure, most likely secondary to congestive heart failure. There may be a component of pneumonia in the right lower lobe. The patient has hypoxia and hypercapnia and carries a diagnosis of emphysema. There seems to be on the chest x-ray pulmonary fibrosis or interstitial changes. The patient has elevated troponin. Myocardial infarction is a consideration. Cardiology is doing that workup. The patient also has atrial fibrillation. PLAN: As far as our plan, we will continue with BiPAP, follow her chest x-ray and arterial blood gas. We will be aggressive with pulmonary toilet. The patient is getting bronchodilators, Solu-Medrol, antibiotics and is still on IV heparin and diltiazem. We will continue to treat aggressively along with the other consultants and the primary care doctor. Rg Morales MD
--- NOTE | 2017-12-09 12:38 | CON ---
DATE: 12/09/2017 INDICATIONS: Shortness of breath, atrial fibrillation, rapid ventricular response, and positive troponin. HISTORY OF PRESENT ILLNESS: This is an 87-year-old woman transferred from the TCU to the Emergency Room yesterday with increasing shortness of breath, found to have atrial fibrillation with rapid ventricular response, which was new; an abnormal chest x-ray consistent with COPD, possible right lower lobe pneumonia, possible CHF, positive troponins. She had respiratory distress, bordering on the need for intubation. She was treated with BIPAP, however and improved with respiratory treatments and Lasix. She is in the intensive care unit with a BiPAP mask this morning. She has atrial fibrillation with a moderate ventricular response. She is on IV heparin and IV Cardizem. There was no chest pain reported. No syncope, no palpitations. No edema, fever, chills, hemoptysis, or abdominal pain. PAST MEDICAL HISTORY: Notable for admission for a fall and [id number] at home. She had obstipation, urinary retention, hyponatremia, syndrome of inappropriate ADH. She was transferred to the TCU and subsequently developed shortness of breath. Additional past medical history includes right hip fracture and repair, iron deficiency anemia, but no myocardial infarction, rheumatic fever, angina, stroke, TIA, diabetes or gout. CURRENT MEDICATIONS: Include IV Cardizem and IV heparin. She got aspirin. She is getting Brovana, cefepime, Pulmicort, Solu-Medrol, vancomycin, and Xopenex. ALLERGIES: THERE WERE NO MEDICATION ALLERGIES REPORTED. SOCIAL HISTORY: She does not smoke cigarettes. She does not drink alcohol. FAMILY HISTORY: Noncontributory. REVIEW OF SYSTEMS: A 10-point review of systems extremely limited because of respiratory issues, information predominantly from her chart. PHYSICAL EXAMINATION GENERAL: She is a well-developed frail elderly woman, lying in bed in the intensive care unit with a BiPAP mask. VITAL SIGNS: She is in atrial fibrillation, around 70 beats per minutes. She is afebrile. Blood pressure 108/42, respiratory rate 18 to 37. O2 saturation is 97% to 100% on BiPAP with FiO2 of 90%. HEENT: Reveals no neck vein distention, thyromegaly, carotid bruits. Mucous membranes moist. Conjunctivae pale. NECK: Supple. LUNGS: Lung ramirez, scattered rhonchi. HEART: Examination of the heart is obscured. There is normal first and second heart sounds, which are distant. ABDOMEN: Soft. Bowel sounds are present. No mass, organomegaly, tenderness, rebound or guarding. CVA tenderness, palpable abdominal aortic aneurysm. EXTREMITIES: Revealed no cyanosis, clubbing or edema. NEUROLOGIC: She is awake and alert. PSYCHIATRIC: Not examined. SKIN: Warm and dry. No rash or cellulitis. LABORATORY DATA AND IMAGING: A chest x-ray revealed probable right lower lobe pneumonia, small right pleural effusion. EKG revealed atrial fibrillation with rapid ventricular response, which was new; changes of anterior septal myocardial infarction, old finding, nonspecific ST-T wave changes, intraventricular conduction delay. White count 08213, hemoglobin 9.8, hematocrit 32.7, platelet count normal. PT/INR mildly elevated initially. PTT normal. D-Dimer 4610. PTT this morning 63.7, on heparin. Blood gases are noted. Electrolytes, BUN and creatinine noted. BUN 55. Blood sugar is noted, last blood sugar 115. Magnesium 2.5. LFT is mildly elevated. CK elevated at 246, repeat 176. Troponins 0.53, 0.38, and 0.21. Urinalysis is as noted. Influenza is negative. ASSESSMENT: Susie Schwarz is an 87-year-old with [id number] at home, recent fall, multiple medical problems, was on transitional care unit with development of respiratory distress, apparent pneumonia, possible myocardial infarction, congestive heart failure, and atrial fibrillation with rapid ventricular response. PLAN: At this time, I agree with current plan. She is in the intensive care unit. She is being followed by the intensivists and Dr. Morales as well as Dr. Pena. She is on IV heparin and IV Cardizem with therapeutic PTT and rate controlled. I will repeat her EKG this morning. I will repeat troponins. She will get aspirin. I will order an echocardiogram to evaluate left ventricular function. She has been cultured. She is getting antibiotics. She has a Burleson. We will monitor I's and O's. We will check stool for occult blood. She is getting respiratory treatments and BiPAP. She is a full code which was discussed with her niece. I will follow along with you. I will make an additional recommendations based on her clinical course. Simone Alva MD [facility] # [id number] VENKATES[facility]
[2017-12-09] MEDS: Dextrose 5%/0.45% NS 1,000 ML IV SCH (13:11)
--- NOTE | 2017-12-09 19:58 | PN ---
DATE: 12/09/2017 INTENSIVE CARE PROGRESS NOTE SUBJECTIVE: This 87-year-old female was examined in ICU, bed 6, present was her niece, Monet Schwarz at the bedside. This case was also reviewed in detail with her nurse, Keny Garber, registered nurse; Dr. Simone Alva from Cardiology; and Dr. Rg Morales from Intensive Care. The patient was admitted with respiratory insufficiency and at present, is wearing a BiPAP mask. She did not require intubation but is markedly weak and deconditioned in the setting of multiple comorbidities including acute myocardial infarction with congestive heart failure; right lower lobe pneumonia, new; chronic obstructive pulmonary disease; and newly noted anemia. The patient remains at bedrest but is able to answer questions appropriately. She is markedly weak and deconditioned and has had several positive troponins. There have been no reports of fever, chills, chest pain, or shortness of breath and she remains in a new atrial fibrillation arrhythmia on the rag shredder. PHYSICAL EXAMINATION: VITAL SIGNS: Her temperature earlier this morning was 98.7, respirations 21, pulse 72, and blood pressure 101/45 with a pulse ox of 97%. HEENT: Head: Normocephalic, atraumatic. Eyes: No icterus. Ears: Clear. Throat: Noninjected. Neck: Supple. HEART: Irregular S1, S2. LUNGS: With rhonchi at the right base. ABDOMEN: Soft. EXTREMITIES: No edema. SKIN: Without rash. NEUROLOGIC: Able to move all four extremities. Grossly intact. PSYCHOLOGIC: Able to answer questions appropriately. Mild anxiety. VASCULAR: Legs warm to touch. LABORATORY DATA: White count 12,400, hemoglobin 9.8, hematocrit 32.7, platelets 302,000. PTT 61.8, pCO2 of 49, pO2 of 186, bicarb 22, pH 7.27, O2 sat 99% on FiO2 of 90%. Chemistry: Sodium 140, K 4.7, chloride 100, bicarb 31, BUN 55, creatinine 0.8, random blood sugar 115. Bilirubin 0.2, AST 55, ALT 40, and alkaline phosphate 127. Troponin 0.38, followed by a troponin of 0.21. Urinalysis showed small bacteria. Influenza A and B serology was negative. Review of chest x-ray showed a right lower lung infiltrate, small right pleural effusion. There was no evidence of pneumothorax. There was mild pulmonary vascular congestion. EKG showed atrial fibrillation with nonspecific ST-T wave changes. IMPRESSION: This is an 87-year-old female with new-onset atrial fibrillation; elevated troponin; rule out subendocardial myocardial infarction; comorbidities of right lower lung pneumonia, chronic obstructive pulmonary disease, anemia, history of colon cancer resection in the past, now with respiratory insufficiency and hypercapnia, improved with BiPAP. PLAN: As discussed with the patient, nursing, Dr. Morales, Dr. Alva, and niece, Monet Schwarz, will be to maintain this patient in critical care where she continues with Burleson catheters for monitoring of urine output and Accu-Chek blood sugar with insulin coverage before meals and at bedtime with an attempt to start to feed this patient a soft bland cardiac diet if able to tolerate with orders for echo, repeat EKG, and BiPAP. She continues on Xopenex 0.63 mg inhalational therapy q. 6 hours, vancomycin 750 mg IV q. 12, Solu-Medrol 40 mg IV q. 12, Pulmicort inhalational therapy q. 12, Maxipime 1 g IV q. 12, Lasix 20 mg will be administered x1 dose, regular low-dose insulin protocol before meals and at bedtime, IV heparin protocol as outlined for atrial fibrillation. The patient will continue on Cardizem drip at 5 mg per hour, Brovana inhalational therapy q. 12. She is ordered to have blood, urine, and methicillin-resistant Staphylococcus aureus screening of her nares and CBC and basic metabolic panel repeated in the a.m. Although, the patient's overall prognosis appears poor at present, it is her desire to remain a full code and to be intubated if necessary. This was reviewed with the patient and niece at bedside. Greater than 35 minutes was spent in the care management, review of x-rays, labs, medication, and ordering of testing for this patient today as well as discussion with the patient and niece at bedside. All questions were answered. Rossy Pena MD VENKATES[facility]
[2017-12-09] MEDS: Heparin25000 units/250ml 1/2NS 25,000 UNITS/250 ML BAG IV PRN (23:59)
[2017-12-10] MEDS: diltiaZEM IVPB 100mg in NS 100 ML IV PRN
[2017-12-10] MEDS ORDERED: diltiaZEM IVPB 100mg in NS 100 ML IV PRN (03:12)
[2017-12-10] MEDS: Vancomycin 750mg 750 MG/250 ML BAG IVPB SCH (03:34)
[2017-12-10 07:12] LABS: HEMOGLOBIN 9.5 g/dL (12.0-16.0); MEAN CELL VOLUME 91.3 fl (80.0-105.0); MEAN CORPUSCULAR HEMOGLOBIN 27.7 pg (25.0-35.0); MEAN CORPUSCULAR HGB CONC 30.4 g/dl (31.0-37.0); MEAN PLATELET VOLUME 9.4 fl (7.0-11.0); RBC 3.43 10^6/uL (3.5-6.1); RED CELL DISTRIBUTION WIDTH 14.2 % (11.5-14.5); WHITE BLOOD COUNT 11.1 10^3/ul (4.5-11.0)
[2017-12-10 07:33] LABS: BLOOD UREA NITROGEN 62 mg/dL (7-21); CALCIUM 9.3 mg/dL (8.4-10.5); GFR AFRICAN-AMERICAN > 60; GFR NON-AFRICAN AMERICAN > 60
[2017-12-10] MEDS: Budesonide 0.25 mg/2 ml Inhal Susp UD IH SCH ×2 (07:38→19:50)
[2017-12-10] MEDS: Arformoterol 15 mcg/2 ml Inh Sol IH SCH ×2 (07:38→19:50)
--- NOTE | 2017-12-10 07:50 | CP.PCM.PN ---
Subjective - Date & Time of Evaluation Date of Evaluation: 12/10/17 Time of Evaluation: 07:00 - Subjective Subjective: Stable in ICU on BIPAP/50% this AM. IV cardizem off b/o VR 40's. V/S noted. AF ~ 60 - 70's now PE: Lungs: rhonchi Cor: irreg., S1S2 Abd.: soft Ext.: no edema Neuro.: alert I/O= 2000/1200 Labs: PTT=56.3, Cr.:= 0.8, K+= 4.6. Trops noted. BC x2 NG at 24 hrs. Objective - Vital Signs/Intake and Output Vital Signs (last 24 hours): Temp Pulse Resp BP Pulse Ox 97.2 F L 67 23 126/60 97 12/10/17 04:00 12/10/17 06:10 12/10/17 06:10 12/10/17 06:07 12/10/17 06:10 Intake and Output: 12/10/17 12/10/17 06:59 18:59 Intake Total 2000 Output Total 1200 Balance 800 - Medications Medications: Current Medications Arformoterol Tartrate (Brovana) 15 mcg IH [id number] [facility] Last Admin: 12/09/17 20:50 Dose: 15 mcg Aspirin (Aspirin Supp) 300 mg RC DAILY [facility] Last Admin: 12/09/17 10:10 Dose: 300 mg Budesonide (Pulmicort Respules) 0.25 mg IH [id number] [facility] Last Admin: 12/09/17 20:50 Dose: 0.25 mg Diltiazem HCl (Cardizem) 10 mg IV STAT [facility] Last Admin: 12/09/17 12:58 Dose: Not Given Heparin Sodium/Sodium Chloride (Heparin 40244 Units/250ml 1/2 Normal Saline) 25 ,000 units in 250 mls @ 8.001 mls/hr IV .Q24H PRN; Protocol; 18 UNITS/KG/HR PRN Reason: ADJUST RATE PER PROTOCOL Last Admin: 12/09/17 23:59 Dose: 15 units/kg/hr, 6.668 mls/hr Cefepime HCl (Maxipime 1gm) 1 gm in 100 mls @ 100 mls/hr IVPB Q12 IVETTE PRN Reason: Protocol Last Admin: 12/09/17 21:28 Dose: 100 mls/hr Vancomycin HCl (Vancomycin 750 Mg In Ns) 750 mg in 250 mls @ 167 mls/hr IVPB Q12H [facility] Last Admin: 12/10/17 03:34 Dose: 167 mls/hr Dextrose/Sodium Chloride (Dextrose 5%/0.45% Ns 1000 Ml) 1,000 mls @ 50 mls/hr IV .Q20H [facility] Last Admin: 12/09/17 13:11 Dose: 50 mls/hr Insulin Human Regular (Humulin R Low) 0 units SC ACHS IVETTE PRN Reason: Protocol Last Admin: 12/09/17 22:06 Dose: Not Given Levalbuterol HCl (Xopenex) 0.63 mg IH [id number] PRN PRN Reason: Shortness of Breath Methylprednisolone (Solu-Medrol) 40 mg IVP Q12 [facility] Last Admin: 12/09/17 21:28 Dose: 40 mg - Labs Labs: 12/10/17 05:30 12/10/17 05:30 PT 12.9 SECONDS (9.4-12.5) H 12/08/17 11:05 INR 1.12 (0.93-1.08) H 12/08/17 11:05 APTT 56.3 Seconds (25.1-36.5) H 12/10/17 05:30 Assessment and Plan - Assessment and Plan (Free Text) Assessment: Dyspnea/Weakness/Respiratory Insufficiency COPD/Pneumonia R/O CHF + trops/NSTEMI AF FTT at home Fall/Hip fx and repair Anemia Plan: Check ECG and trop this AM Bedside echo Heparin by PTT's Hold IV diltiazem for now AB/Respiratory Tx./BiPap As per Intensivists, Dr. Pena. Will follow.
[2017-12-10 08:26] LABS: ARTERIAL BLOOD GAS HEMOGLOBIN 8.9 g/dL (11.7-17.4); ARTERIAL BLOOD GAS O2 CAPACITY 12.4 mL/dl (16-24); ARTERIAL BLOOD GAS O2 CONTENT 12.1 ML/dl (15-23); ARTERIAL BLOOD GAS O2 SAT 97.7 % (95-98); ARTERIAL BLOOD GAS PCO2 43 mm/Hg (35-45); ARTERIAL BLOOD GAS PH 7.39 (7.35-7.45); ARTERIAL BLOOD GAS TCO2 27.3 mmol.L (22-28)
--- NOTE | 2017-12-10 09:55 | CP.CCUPN ---
<Emily House - Last Filed: 12/10/17 11:01> CCU Subjective - Physician Review Subjective (Free Text): 12/10/17 08:01 87 y/o F seen and examined at bedside. She is nasal cannula for respiratory support. Overnight her heart rate was in the 40s. Her Cardizem drip was discontinued. She denies chest pain, nausea, vomiting, diarrhea, constipation. She admits to generalized weakness. Critical Care Time Spent (in minutes): 45 CCU Objective - Vital Signs / Intake & Output Vital Signs (Last 4 hours): Vital Signs Pulse Resp BP Pulse Ox 12/10/17 07:20 72 12/10/17 06:10 67 23 97 12/10/17 06:07 71 18 126/60 96 12/10/17 06:00 75 98 12/10/17 05:59 79 32 H Intake and Output (Last 8hrs): Intake & Output 12/09/17 12/10/17 12/10/17 22:59 06:59 14:59 Intake Total 950 1050 Output Total 700 500 Balance 250 550 Intake: IV 950 1050 Left Forearm 600 730 Right Forearm 350 Output: Urine 700 500 Urethral (Burleson) 700 500 - Physical Exam Head: Positive for: Atraumatic Pupils: Positive for: PERRL Extroacular Muscles: Positive for: EOMI Mouth: Positive for: Dry Pharnyx: Negative for: ERYTHEMA Neck: Positive for: Normal Range of Motion Respiratory/Chest: Positive for: Clear to Auscultation, Good Air Exchange. Negative for: Respiratory Distress, Accessory Muscle Use, Wheezes, Rales, Retracting, Rhonchi, Tachypneic, Tender to Palpation Cardiovascular: Positive for: Murmurs, Normal S1, S2, Irregular Rhythm. Negative for: Tachycardic, Bradycardic, Rub, Gallop Abdomen: Positive for: Normal Bowel Sounds. Negative for: Tenderness, Distention, Peritoneal Signs Rectal: Negative for: Gross Blood Upper Extremity: Negative for: Cyanosis, Edema Lower Extremity: Negative for: Edema, CALF TENDERNESS Neurological: Positive for: Motor Func Grossly Intact, Normal Sensory Function Skin: Positive for: Pale Psychiatric: Positive for: Alert. Negative for: Normal Insight, Normal Concentration - Medications Active Medications: Active Medications Generic Name Dose Route Start Last Admin Trade Name Freq PRN Reason Stop Dose Admin Arformoterol Tartrate 15 mcg 12/08/17 20:00 12/10/17 07:38 Brovana IH 15 mcg [id number] IVETTE Administration Aspirin 300 mg 12/09/17 10:00 12/09/17 10:10 Aspirin Supp RC 300 mg DAILY IV[facility]TE Administration Budesonide 0.25 mg 12/08/17 20:00 12/10/17 07:38 Pulmicort Respules IH 0.25 mg [id number] IVETTE Administration Diltiazem HCl 10 mg 12/08/17 11:15 12/09/17 12:58 Cardizem IV Not Given STAT IVETTE Heparin Sodium/Sodium Chloride 25,000 units in 250 mls @ 8.001 mls/hr 11:21 12/09/17 23:59 Heparin 56576 Units/250ml 1/2 Normal Saline IV 15 units/kg/hr .Q24H PRN 6.668 mls/hr ADJUST RATE PER PROTOCOL Administration Protocol 18 UNITS/KG/HR Cefepime HCl 1 gm in 100 mls @ 100 mls/hr 12/08/17 22:00 12/09/17 21:28 Maxipime 1gm IVPB 100 mls/hr Q12 IVETTE Administration Protocol Vancomycin HCl 750 mg in 250 mls @ 167 mls/hr 12/08/17 16:15 12/10/17 03:34 Vancomycin 750 Mg In Ns IVPB 167 mls/hr Q12H [facility]TE Administration Dextrose/Sodium Chloride 1,000 mls @ 50 mls/hr 12/09/17 13:15 12/09/17 13:11 Dextrose 5%/0.45% Ns 1000 Ml IV 50 mls/hr .Q20H IVETTE Administration Insulin Human Regular 0 units 12/08/17 16:30 12/09/17 22:06 Humulin R Low SC Not Given ACHS [facility] Protocol Levalbuterol HCl 0.63 mg 12/08/17 16:08 Xopenex IH [id number] PRN Shortness of Breath Methylprednisolone 40 mg 12/08/17 22:00 12/09/17 21:28 Solu-Medrol IVP 40 mg Q12 IVETTE Administration Pantoprazole Sodium 40 mg 12/10/17 10:00 Protonix Inj IVP DAILY [facility] - Patient Studies Lab Studies: Microbiology Studies 12/08/17 14:20 MRSA Culture (Admit) - Final Nose MRSA NOT DETECTED Lab Studies 12/10/17 12/10/17 12/10/17 Range/Units 08:20 07:34 05:30 WBC (4.5-11.0) 10^3/ul RBC (3.5-6.1) 10^6/uL Hgb (12.0-16.0) g/dL Hct (36.0-48.0) % MCV (80.0-105.0) fl MCH (25.0-35.0) pg MCHC (31.0-37.0) g/dl RDW (11.5-14.5) % Plt Count (120.0-450.0) 10^3/uL MPV (7.0-11.0) fl APTT 56.3 H (25.1-36.5) Seconds pCO2 43 (35-45) mm/Hg pO2 81.0 (80-100) mm/Hg HCO3 26.0 (21-28) mmol/L ABG pH 7.39 (7.35-7.45) ABG Total CO2 27.3 (22-28) mmol.L ABG O2 Saturation 97.7 (95-98) % ABG O2 Content 12.1 L (15-23) ML/dl ABG Base Excess 0.9 (-2.0-3.0) mmol/L ABG Hemoglobin 8.9 L (11.7-17.4) g/dL ABG Carboxyhemoglobin 1.1 (0.5-1.5) % POC ABG HHb (Measured) 2.3 (0-5) % ABG Methemoglobin 1.0 (0.0-3.0) % ABG O2 Capacity 12.4 L (16-24) mL/dl Hgb O2 Saturation 95.6 (95.0-98.0) % FiO2 50.0 % Sodium (132-148) mmol/L Potassium (3.6-5.0) mmol/L Chloride (98-107) mmol/L Carbon Dioxide (21-33) mmol/L Anion Gap (10-20) BUN (7-21) mg/dL Creatinine (0.7-1.2) mg/dl Est GFR ( Amer) Est GFR (Non-Af Amer) POC Glucose (mg/dL) 149 H (65-110) mg/dL Random Glucose (70-110) mg/dL Calcium (8.4-10.5) mg/dL Troponin I ng/mL Vancomycin Trough (5.0-10.0) ug/mL 12/10/17 12/10/17 12/10/17 Range/Units 05:30 05:30 05:30 WBC 11.1 H (4.5-11.0) 10^3/ul RBC 3.43 L (3.5-6.1) 10^6/uL Hgb 9.5 L (12.0-16.0) g/dL Hct 31.3 L (36.0-48.0) % MCV 91.3 (80.0-105.0) fl MCH 27.7 (25.0-35.0) pg MCHC 30.4 L (31.0-37.0) g/dl RDW 14.2 (11.5-14.5) % Plt Count 317 (120.0-450.0) 10^3/uL MPV 9.4 (7.0-11.0) fl APTT (25.1-36.5) Seconds pCO2 (35-45) mm/Hg pO2 (80-100) mm/Hg HCO3 (21-28) mmol/L ABG pH (7.35-7.45) ABG Total CO2 (22-28) mmol.L ABG O2 Saturation (95-98) % ABG O2 Content (15-23) ML/dl ABG Base Excess (-2.0-3.0) mmol/L ABG Hemoglobin (11.7-17.4) g/dL ABG Carboxyhemoglobin (0.5-1.5) % POC ABG HHb (Measured) (0-5) % ABG Methemoglobin (0.0-3.0) % ABG O2 Capacity (16-24) mL/dl Hgb O2 Saturation (95.0-98.0) % FiO2 % Sodium 148 (132-148) mmol/L Potassium 4.6 (3.6-5.0) mmol/L Chloride 108 H (98-107) mmol/L Carbon Dioxide 30 (21-33) mmol/L Anion Gap 14 (10-20) BUN 62 H (7-21) mg/dL Creatinine 0.8 (0.7-1.2) mg/dl Est GFR ( Amer) > 60 Est GFR (Non-Af Amer) > 60 POC Glucose (mg/dL) (65-110) mg/dL Random Glucose 167 H (70-110) mg/dL Calcium 9.3 (8.4-10.5) mg/dL Troponin I 0.10 D ng/mL Vancomycin Trough 19.9 H* (5.0-10.0) ug/mL 12/09/17 12/09/17 12/09/17 Range/Units 21:57 16:32 09:55 WBC (4.5-11.0) 10^3/ul RBC (3.5-6.1) 10^6/uL Hgb (12.0-16.0) g/dL Hct (36.0-48.0) % MCV (80.0-105.0) fl MCH (25.0-35.0) pg MCHC (31.0-37.0) g/dl RDW (11.5-14.5) % Plt Count (120.0-450.0) 10^3/uL MPV (7.0-11.0) fl APTT 61.8 H (25.1-36.5) Seconds pCO2 (35-45) mm/Hg pO2 (80-100) mm/Hg HCO3 (21-28) mmol/L ABG pH (7.35-7.45) ABG Total CO2 (22-28) mmol.L ABG O2 Saturation (95-98) % ABG O2 Content (15-23) ML/dl ABG Base Excess (-2.0-3.0) mmol/L ABG Hemoglobin (11.7-17.4) g/dL ABG Carboxyhemoglobin (0.5-1.5) % POC ABG HHb (Measured) (0-5) % ABG Methemoglobin (0.0-3.0) % ABG O2 Capacity (16-24) mL/dl Hgb O2 Saturation (95.0-98.0) % FiO2 % Sodium (132-148) mmol/L Potassium (3.6-5.0) mmol/L Chloride (98-107) mmol/L Carbon Dioxide (21-33) mmol/L Anion Gap (10-20) BUN (7-21) mg/dL Creatinine (0.7-1.2) mg/dl Est GFR ( Amer) Est GFR (Non-Af Amer) POC Glucose (mg/dL) 146 H 148 H (65-110) mg/dL Random Glucose (70-110) mg/dL Calcium (8.4-10.5) mg/dL Troponin I ng/mL Vancomycin Trough (5.0-10.0) ug/mL Laboratory Results - last 24 hr 12/09/17 12/09/17 12/09/17 09:55 16:32 21:57 WBC RBC Hgb Hct MCV MCH MCHC RDW Plt Count MPV APTT 61.8 H pCO2 pO2 HCO3 ABG pH ABG Total CO2 ABG O2 Saturation ABG O2 Content ABG Base Excess ABG Hemoglobin ABG Carboxyhemoglobin POC ABG HHb (Measured) ABG Methemoglobin ABG O2 Capacity Hgb O2 Saturation FiO2 Sodium Potassium Chloride Carbon Dioxide Anion Gap BUN Creatinine Est GFR ( Amer) Est GFR (Non-Af Amer) POC Glucose (mg/dL) 148 H 146 H Random Glucose Calcium Troponin I Vancomycin Trough 12/10/17 12/10/17 12/10/17 05:30 05:30 05:30 WBC 11.1 H RBC 3.43 L Hgb 9.5 L Hct 31.3 L MCV 91.3 MCH 27.7 MCHC 30.4 L RDW 14.2 Plt Count 317 MPV 9.4 APTT pCO2 pO2 HCO3 ABG pH ABG Total CO2 ABG O2 Saturation ABG O2 Content ABG Base Excess ABG Hemoglobin ABG Carboxyhemoglobin POC ABG HHb (Measured) ABG Methemoglobin ABG O2 Capacity Hgb O2 Saturation FiO2 Sodium 148 Potassium 4.6 Chloride 108 H Carbon Dioxide 30 Anion Gap 14 BUN 62 H Creatinine 0.8 Est GFR ( Amer) > 60 Est GFR (Non-Af Amer) > 60 POC Glucose (mg/dL) Random Glucose 167 H Calcium 9.3 Troponin I 0.10 D Vancomycin Trough 19.9 H* 12/10/17 12/10/17 12/10/17 05:30 07:34 08:20 WBC RBC Hgb Hct MCV MCH MCHC RDW Plt Count MPV APTT 56.3 H pCO2 43 pO2 81.0 HCO3 26.0 ABG pH 7.39 ABG Total CO2 27.3 ABG O2 Saturation 97.7 ABG O2 Content 12.1 L ABG Base Excess 0.9 ABG Hemoglobin 8.9 L ABG Carboxyhemoglobin 1.1 POC ABG HHb (Measured) 2.3 ABG Methemoglobin 1.0 ABG O2 Capacity 12.4 L Hgb O2 Saturation 95.6 FiO2 50.0 Sodium Potassium Chloride Carbon Dioxide Anion Gap BUN Creatinine Est GFR ( Amer) Est GFR (Non-Af Amer) POC Glucose (mg/dL) 149 H Random Glucose Calcium Troponin I Vancomycin Trough EKG/Cardiology Studies: Cardiology / EKG Studies 12/10/17 07:48 ELECTROCARDIOGRAM Routine Comment: Reason For Exam: AF,NSTEMI Fingerstick Blood Sugar Results: 150 Results Reviewed to Date: Yes Critical Care Progress Note - Prophylaxis GI Prophylaxis GI: PPI - Prophylaxis DVT Prophylaxis DVT: Heparin SQ - Nutrition Nutrition: Nutrition Category Date Time Status NPO Diet [DIET] Diets 12/09/17 Dinner Ordered Assessment/Plan - Assessment and Plan (Free Text) Assessment: Patient is an 87 y/o F with PMH of COPD, 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 Patient was placed heparin drip and Cardizem drip, however Cardizem drip was discontinued due to bradycardia. Plan: Neuro: alert and awake, at baseline Cardio: New onset a.fib with RVR, patient was on Cardizem drip,m discontinued due to bradycardia. Currently rate controlled off of Cardizem drip Chadscvasc score of 5, continue with Heparin drip Rhia is following Continue ASA Echo ordered Trponin leak, likely due to rvr afib, r/o ACS - Troponins are trending down - on asa Maintain MAP >65 Pulm: hypercapneic and hypoxemic respiratory distress likely due to copd exacerbation versus transient pulmonary edema from new onset RVR afib - respiratory status improved on bipap - Patient is currently saturating between 95%-98% on nasal cannula - Continue with HOB elevated to 35 degrees, aspiration precautions - Maintain SpO2 of 88-92% - Continue with bronchodilators, Solumedrol 40q12 - On abx for copd exacerbation. ID: Afebrile, leukocytosis CXR showed right lower lobe infiltrate with possible pneumonia and a right pleural effusion Continue Vanc and Cefepime f/u blood and urine cultures GI: Pending swallow evaluation ordered. On ppi for prophylaxis. Heme:H/H stable at baseline, will continue to monitor. Nephro: Prerenal azotemia, BUN/Cr > 20:1, on D5W/.5NS @ 50cc/hr for fluid maintenance. Endo: Maintain euglycemia (140 - 180) DVT ppx: Heparin drip for afib. Dispo: Patient is stable and on nasal cannula. Transfer to telemetry, pending PT eval. Patient seen, examined and case discussed with the attending. - Date & Time Date: 12/10/17 Time: 11:05 <Cruzito Miles - Last Filed: 12/10/17 11:38> CCU Objective - Vital Signs / Intake & Output Intake and Output (Last 8hrs): Intake & Output 12/09/17 12/10/17 12/10/17 22:59 06:59 14:59 Intake Total 950 1050 Output Total 700 500 Balance 250 550 Intake: IV 950 1050 Left Forearm 600 730 Right Forearm 350 Output: Urine 700 500 Urethral (Burleson) 700 500 - Medications Active Medications: Active Medications Generic Name Dose Route Start Last Admin Trade Name Freq PRN Reason Stop Dose Admin Arformoterol Tartrate 15 mcg 12/08/17 20:00 12/10/17 07:38 Brovana IH 15 mcg [id number] IVETTE Administration Aspirin 300 mg 12/09/17 10:00 12/09/17 10:10 Aspirin Supp RC 300 mg DAILY IV[facility]TE Administration Budesonide 0.25 mg 12/08/17 20:00 12/10/17 07:38 Pulmicort Respules IH 0.25 mg [id number] IVETTE Administration Heparin Sodium/Sodium Chloride 25,000 units in 250 mls @ 8.001 mls/hr 11:21 12/09/17 23:59 Heparin 16776 Units/250ml 1/2 Normal Saline IV 15 units/kg/hr .Q24H PRN 6.668 mls/hr ADJUST RATE PER PROTOCOL Administration Protocol 18 UNITS/KG/HR Dextrose/Sodium Chloride 1,000 mls @ 50 mls/hr 12/09/17 13:15 12/09/17 13:11 Dextrose 5%/0.45% Ns 1000 Ml IV 50 mls/hr .Q20H IV[facility]TE Administration Vancomycin HCl 500 mg in 100 mls @ 200 mls/hr 12/12/17 10:00 Vancomycin 500mg In Ns IVPB Q12 IVETTE Cefepime HCl 1 gm in 100 mls @ 100 mls/hr 12/11/17 10:00 Maxipime 1gm IVPB 12/13/17 22:01 DAILY [facility] Protocol Insulin Human Regular 0 units 12/08/17 16:30 12/10/17 11:14 Humulin R Low SC Not Given ACHS [facility] Protocol Levalbuterol HCl 0.63 mg 12/08/17 16:08 Xopenex IH [id number] PRN Shortness of Breath Methylprednisolone 40 mg 12/08/17 22:00 12/09/17 21:28 Solu-Medrol IVP 40 mg Q12 IVETTE Administration Pantoprazole Sodium 40 mg 12/10/17 10:00 Protonix Inj IVP DAILY [facility] - Patient Studies Lab Studies: Microbiology Studies 12/08/17 14:20 MRSA Culture (Admit) - Final Nose MRSA NOT DETECTED Lab Studies 12/10/17 12/10/17 12/10/17 Range/Units 08:20 07:34 05:30 WBC (4.5-11.0) 10^3/ul RBC (3.5-6.1) 10^6/uL Hgb (12.0-16.0) g/dL Hct (36.0-48.0) % MCV (80.0-105.0) fl MCH (25.0-35.0) pg MCHC (31.0-37.0) g/dl RDW (11.5-14.5) % Plt Count (120.0-450.0) 10^3/uL MPV (7.0-11.0) fl APTT 56.3 H (25.1-36.5) Seconds pCO2 43 (35-45) mm/Hg pO2 81.0 (80-100) mm/Hg HCO3 26.0 (21-28) mmol/L ABG pH 7.39 (7.35-7.45) ABG Total CO2 27.3 (22-28) mmol.L ABG O2 Saturation 97.7 (95-98) % ABG O2 Content 12.1 L (15-23) ML/dl ABG Base Excess 0.9 (-2.0-3.0) mmol/L ABG Hemoglobin 8.9 L (11.7-17.4) g/dL ABG Carboxyhemoglobin 1.1 (0.5-1.5) % POC ABG HHb (Measured) 2.3 (0-5) % ABG Methemoglobin 1.0 (0.0-3.0) % ABG O2 Capacity 12.4 L (16-24) mL/dl Hgb O2 Saturation 95.6 (95.0-98.0) % FiO2 50.0 % Sodium (132-148) mmol/L Potassium (3.6-5.0) mmol/L Chloride (98-107) mmol/L Carbon Dioxide (21-33) mmol/L Anion Gap (10-20) BUN (7-21) mg/dL Creatinine (0.7-1.2) mg/dl Est GFR ( Amer) Est GFR (Non-Af Amer) POC Glucose (mg/dL) 149 H (65-110) mg/dL Random Glucose (70-110) mg/dL Calcium (8.4-10.5) mg/dL Troponin I ng/mL Vancomycin Trough (5.0-10.0) ug/mL 12/10/17 12/10/17 12/10/17 Range/Units 05:30 05:30 05:30 WBC 11.1 H (4.5-11.0) 10^3/ul RBC 3.43 L (3.5-6.1) 10^6/uL Hgb 9.5 L (12.0-16.0) g/dL Hct 31.3 L (36.0-48.0) % MCV 91.3 (80.0-105.0) fl MCH 27.7 (25.0-35.0) pg MCHC 30.4 L (31.0-37.0) g/dl RDW 14.2 (11.5-14.5) % Plt Count 317 (120.0-450.0) 10^3/uL MPV 9.4 (7.0-11.0) fl APTT (25.1-36.5) Seconds pCO2 (35-45) mm/Hg pO2 (80-100) mm/Hg HCO3 (21-28) mmol/L ABG pH (7.35-7.45) ABG Total CO2 (22-28) mmol.L ABG O2 Saturation (95-98) % ABG O2 Content (15-23) ML/dl ABG Base Excess (-2.0-3.0) mmol/L ABG Hemoglobin (11.7-17.4) g/dL ABG Carboxyhemoglobin (0.5-1.5) % POC ABG HHb (Measured) (0-5) % ABG Methemoglobin (0.0-3.0) % ABG O2 Capacity (16-24) mL/dl Hgb O2 Saturation (95.0-98.0) % FiO2 % Sodium 148 (132-148) mmol/L Potassium 4.6 (3.6-5.0) mmol/L Chloride 108 H (98-107) mmol/L Carbon Dioxide 30 (21-33) mmol/L Anion Gap 14 (10-20) BUN 62 H (7-21) mg/dL Creatinine 0.8 (0.7-1.2) mg/dl Est GFR ( Amer) > 60 Est GFR (Non-Af Amer) > 60 POC Glucose (mg/dL) (65-110) mg/dL Random Glucose 167 H (70-110) mg/dL Calcium 9.3 (8.4-10.5) mg/dL Troponin I 0.10 D ng/mL Vancomycin Trough 19.9 H* (5.0-10.0) ug/mL 12/09/17 12/09/17 Range/Units 21:57 16:32 WBC (4.5-11.0) 10^3/ul RBC (3.5-6.1) 10^6/uL Hgb (12.0-16.0) g/dL Hct (36.0-48.0) % MCV (80.0-105.0) fl MCH (25.0-35.0) pg MCHC (31.0-37.0) g/dl RDW (11.5-14.5) % Plt Count (120.0-450.0) 10^3/uL MPV (7.0-11.0) fl APTT (25.1-36.5) Seconds pCO2 (35-45) mm/Hg pO2 (80-100) mm/Hg HCO3 (21-28) mmol/L ABG pH (7.35-7.45) ABG Total CO2 (22-28) mmol.L ABG O2 Saturation (95-98) % ABG O2 Content (15-23) ML/dl ABG Base Excess (-2.0-3.0) mmol/L ABG Hemoglobin (11.7-17.4) g/dL ABG Carboxyhemoglobin (0.5-1.5) % POC ABG HHb (Measured) (0-5) % ABG Methemoglobin (0.0-3.0) % ABG O2 Capacity (16-24) mL/dl Hgb O2 Saturation (95.0-98.0) % FiO2 % Sodium (132-148) mmol/L Potassium (3.6-5.0) mmol/L Chloride (98-107) mmol/L Carbon Dioxide (21-33) mmol/L Anion Gap (10-20) BUN (7-21) mg/dL Creatinine (0.7-1.2) mg/dl Est GFR ( Amer) Est GFR (Non-Af Amer) POC Glucose (mg/dL) 146 H 148 H (65-110) mg/dL Random Glucose (70-110) mg/dL Calcium (8.4-10.5) mg/dL Troponin I ng/mL Vancomycin Trough (5.0-10.0) ug/mL Laboratory Results - last 24 hr 12/09/17 12/09/17 12/10/17 16:32 21:57 05:30 WBC RBC Hgb Hct MCV MCH MCHC RDW Plt Count MPV APTT pCO2 pO2 HCO3 ABG pH ABG Total CO2 ABG O2 Saturation ABG O2 Content ABG Base Excess ABG Hemoglobin ABG Carboxyhemoglobin POC ABG HHb (Measured) ABG Methemoglobin ABG O2 Capacity Hgb O2 Saturation FiO2 Sodium Potassium Chloride Carbon Dioxide Anion Gap BUN Creatinine Est GFR ( Amer) Est GFR (Non-Af Amer) POC Glucose (mg/dL) 148 H 146 H Random Glucose Calcium Troponin I Vancomycin Trough 19.9 H* 12/10/17 12/10/17 12/10/17 05:30 05:30 05:30 WBC 11.1 H RBC 3.43 L Hgb 9.5 L Hct 31.3 L MCV 91.3 MCH 27.7 MCHC 30.4 L RDW 14.2 Plt Count 317 MPV 9.4 APTT 56.3 H pCO2 pO2 HCO3 ABG pH ABG Total CO2 ABG O2 Saturation ABG O2 Content ABG Base Excess ABG Hemoglobin ABG Carboxyhemoglobin POC ABG HHb (Measured) ABG Methemoglobin ABG O2 Capacity Hgb O2 Saturation FiO2 Sodium 148 Potassium 4.6 Chloride 108 H Carbon Dioxide 30 Anion Gap 14 BUN 62 H Creatinine 0.8 Est GFR ( Amer) > 60 Est GFR (Non-Af Amer) > 60 POC Glucose (mg/dL) Random Glucose 167 H Calcium 9.3 Troponin I 0.10 D Vancomycin Trough 12/10/17 12/10/17 07:34 08:20 WBC RBC Hgb Hct MCV MCH MCHC RDW Plt Count MPV APTT pCO2 43 pO2 81.0 HCO3 26.0 ABG pH 7.39 ABG Total CO2 27.3 ABG O2 Saturation 97.7 ABG O2 Content 12.1 L ABG Base Excess 0.9 ABG Hemoglobin 8.9 L ABG Carboxyhemoglobin 1.1 POC ABG HHb (Measured) 2.3 ABG Methemoglobin 1.0 ABG O2 Capacity 12.4 L Hgb O2 Saturation 95.6 FiO2 50.0 Sodium Potassium Chloride Carbon Dioxide Anion Gap BUN Creatinine Est GFR ( Amer) Est GFR (Non-Af Amer) POC Glucose (mg/dL) 149 H Random Glucose Calcium Troponin I Vancomycin Trough EKG/Cardiology Studies: Cardiology / EKG Studies 12/10/17 07:48 ELECTROCARDIOGRAM Routine Comment: Reason For Exam: AF,NSTEMI Critical Care Progress Note - Nutrition Nutrition: Nutrition Category Date Time Status NPO Diet [DIET] Diets 12/09/17 Dinner Ordered Assessment/Plan - Assessment and Plan (Free Text) Plan: Patient seen and examined on rounds with resident, agree with note with following additions/exceptions: Patient is 87yo female with PMhx of COPD, Anemia, IPF, a/w hypercapnic resp failure requiring BIPAP, and Afib with RVR, requiring Cardizem Drip. Currently afebrile, HD stable, comfortable in NAD, off cardizem drip, off BIPAP , ABG acceptable oxygenation with NO evidence of CO2 retention. Patient awake, alert, in NAD, requesting to eat, stable. COPD exacerbation HTN Pulm Fibrosis Anemia Afib Recommend: - supp o2, BIPAP as needed - Duonebs PRN - Solumedrol 40mg Q12hr - Vanco, Cefepime, follow up cultures, procal - BP control - DC Cardizem drip, switch to PO Cardizem - A/C, Heparin - Speech swallow eval - D51/2NS IVF hydration - GI ppx, PPI - DVT ppx - Stable, transfer to telemetry
[2017-12-10] MEDS ORDERED: Vancomycin 500mg in NS 500 MG/100 ML BAG IVPB ONE (10:45)
[2017-12-10] MEDS: Insulin Reg-LOW-Coverage SC SCH ×3 (11:14→22:44)
[2017-12-10] MEDS: Dextrose 5%/0.45% NS 1,000 ML IV SCH (11:43)
[2017-12-10] MEDS: MethylPREDNISolone 40 mg Vial IVP SCH ×2 (11:44→22:48)
--- NOTE | 2017-12-10 18:09 | PN ---
DATE: 12/10/2017 CRITICAL CARE PROGRESS NOTE SUBJECTIVE: This 87-year-old female was examined in bed 6 of the ICU. Present for the interview were her nurse, Keny Garber, registered nurse and speech pathologist, Rosette Olvera. The patient is much more alert today. She is wearing nasal O2. She denies any active chest pain but remains short of breath at rest. She states she is hungry and is undergoing a swallowing eval. This was observed and shows that she is able to swallow a pureed diet and thin liquids. This will be adjusted in her dietary orders. Today, she remains in atrial fibrillation rhythm, rate controlled and is denying any active chest pain or hemoptysis. PHYSICAL EXAMINATION: VITAL SIGNS: Her temperature was 97.2, respirations 18, pulse 71, and blood pressure 126/60 with a pulse ox of 98%, wearing nasal O2. Urine output thus far today is 500 mL. HEENT: Head: Normocephalic, atraumatic. Eyes: No icterus. Ears: Clear. Throat: Noninjected. NECK: Supple. HEART: Irregular S1, S2. LUNGS: With rhonchi at the right base posteriorly. ABDOMEN: Soft. EXTREMITIES: No edema. SKIN: Without rash. NEUROLOGIC: Markedly deconditioned but able to move all four extremities and follow verbal commands. PSYCHOLOGIC: Alert and oriented x3. VASCULAR: Legs warm to touch. LABORATORY DATA: White count 11,100, previously 12,400; hemoglobin 9.5; hematocrit 31.3; platelets 317,000. PTT 56.3. Sodium 148, K 4.6, chloride 108, bicarb 30, BUN 62, creatinine 0.8, random blood sugar 167. Previous troponin 0.21. Troponin today is 0.10. CPK normal 176. Vancomycin trough 19.9. Influenza A, B serology negative. Blood cultures are showing no growth at 48 hours. Urine culture is showing Staph aureus. Nose culture, no MRSA. Urine culture, ID and sensitivities pending. IMPRESSION: This is an 87-year-old female with respiratory failure and insufficiency in the setting of chronic obstructive pulmonary disease, newly noted right lower lung pneumonia with marked deconditioning and comorbidities of anemia, hyperglycemia, and now possible urinary tract infection, also with marked with deconditioning. PLAN: As discussed with the patient, nursing, speech therapy, and family, will be to maintain this patient in critical care while trying to advance her diet with a dysphagia modified diet with pureed consistency and thin liquids. She also was ordered to have physical therapy at bedside and is ordered to have Ensure supplementation t.i.d. Burleson catheter has been discontinued and the patient will be monitored regarding I's and O's. She is ordered to have BiPAP. She will have a trial of nasal O2 at present. She continues on Xopenex inhalational therapy. Vancomycin has been held at present and will be resumed in a.m. at 500 mg IV q. 12, dose reduced based on vancomycin trough level. She is ordered to have methylprednisolone 40 mg IV q. 12, Pulmicort inhalational therapy q. 12, Protonix 40 mg IV daily, Maxipime 1 g IV piggyback daily, regular low-dose insulin protocol before meals and at bedtime, IV heparin protocol, monitoring PTT, D5 0.45 saline at 50 mL/hour and Brovana inhalational therapy q. 12. She will have a basic metabolic panel, CBC, and PTT done in the a.m. Greater than 35 minutes was spent in the care management, review of x-rays and labs, and ordering of medication today and discussion of this patient's care with nursing, speech therapy, and co-consultants. All questions were answered. Rossy Pena MD [email or web address]
[2017-12-10] MEDS ORDERED: Morphine 5 MG/ML SYRINGE IVP STA (20:01)
--- NOTE | 2017-12-10 21:29 | CARD ---
APPROVED REPORT EKG Measurement Heart [id number] <Conclusion> Atrial fibrillation Abnormal QRS-T angle, consider primary T wave abnormality Abnormal ECG
[2017-12-10] MEDS ORDERED: Vancomycin 500mg in NS 500 MG/100 ML BAG IVPB SCH (22:00)
[2017-12-10] MEDS ORDERED: Morphine 2 mg/ml ISec IVP STA (23:21)
--- NOTE | 2017-12-11 07:07 | CP.CCUPN ---
<LacyEmily - Last Filed: 12/11/17 11:04> CCU Subjective - Physician Review Subjective (Free Text): 12/11/17 07:52 87 y/o F seen and examined at bedside. She is on Bipap for respiratory support. Overnight she was trying to take her Bipap off. She was given 0.5mg Morphine and soft wrist restraints. She denies chest pain, nausea, vomiting, diarrhea, constipation. She admits to generalized weakness. per nurse, patient had no urine output all night, bladder scan was obtained with 600 cc of urine. Acevedo catheter was placed draining 500 cc of urine automatically. Critical Care Time Spent (in minutes): 50 CCU Objective - Vital Signs / Intake & Output Vital Signs (Last 4 hours): Vital Signs Temp Pulse Resp BP Pulse Ox 12/11/17 06:00 97.2 F L 60 14 115/62 92 L 12/11/17 05:50 65 19 91 L 12/11/17 05:40 64 22 94 L 12/11/17 05:30 57 L 31 H 91 L 12/11/17 05:20 59 L 23 91 L 12/11/17 05:10 57 L 16 91 L 12/11/17 05:00 97.2 F L 46 L 18 114/56 L 90 L 12/11/17 04:50 62 17 91 L 12/11/17 04:40 59 L 25 H 93 L 12/11/17 04:30 58 L 20 92 L 12/11/17 04:20 65 17 93 L 12/11/17 04:10 61 20 91 L 12/11/17 04:00 61 20 101/57 L 93 L 12/11/17 03:50 59 L 17 92 L 12/11/17 03:40 60 18 92 L 12/11/17 03:30 62 17 92 L 12/11/17 03:20 63 20 92 L 12/11/17 03:10 61 15 89 L Intake and Output (Last 8hrs): Intake & Output 12/10/17 12/11/17 12/11/17 22:59 06:59 14:59 Intake Total 684 Output Total 200 Balance 484 Intake: IV 284 Left Forearm 284 Oral 400 Output: Urine 200 Urine, Voided 200 - Physical Exam Head: Positive for: Atraumatic Pupils: Positive for: PERRL Extroacular Muscles: Positive for: EOMI Mouth: Positive for: Dry Pharnyx: Negative for: ERYTHEMA Neck: Positive for: Normal Range of Motion Respiratory/Chest: Positive for: Respiratory Distress, Accessory Muscle Use, Decreased Breath Sounds. Negative for: Wheezes, Rales, Retracting, Rhonchi, Tachypneic, Tender to Palpation Cardiovascular: Positive for: Murmurs, Normal S1, S2, Irregular Rhythm. Negative for: Tachycardic, Bradycardic, Rub, Gallop Abdomen: Positive for: Normal Bowel Sounds. Negative for: Tenderness, Distention, Peritoneal Signs Rectal: Negative for: Gross Blood Genitourinary/Pelvic Exam: Positive for: Other (+ acevedo catheter.) Upper Extremity: Negative for: Cyanosis, Edema Lower Extremity: Negative for: Edema, CALF TENDERNESS Neurological: Positive for: Motor Func Grossly Intact, Normal Sensory Function Skin: Positive for: Pale Psychiatric: Positive for: Alert. Negative for: Normal Insight, Normal Concentration - Medications Active Medications: Active Medications Generic Name Dose Route Start Last Admin Trade Name Freq PRN Reason Stop Dose Admin Arformoterol Tartrate 15 mcg 12/08/17 20:00 12/10/17 19:50 Brovana IH 15 mcg [id number] IVETTE Administration Aspirin 300 mg 12/09/17 10:00 12/10/17 11:43 Aspirin Supp RC 300 mg DAILY IVETTE Administration Budesonide 0.25 mg 12/08/17 20:00 12/10/17 19:50 Pulmicort Respules IH 0.25 mg [id number] IVETTE Administration Diltiazem HCl 60 mg 12/10/17 18:00 12/10/17 22:47 Cardizem PO 60 mg QID IVETTE Administration Heparin Sodium/Sodium Chloride 25,000 units in 250 mls @ 8.001 mls/hr 11:21 12/09/17 23:59 Heparin 86184 Units/250ml 1/2 Normal Saline IV 15 units/kg/hr .Q24H PRN 6.668 mls/hr ADJUST RATE PER PROTOCOL Administration Protocol 18 UNITS/KG/HR Dextrose/Sodium Chloride 1,000 mls @ 50 mls/hr 12/09/17 13:15 12/10/17 11:43 Dextrose 5%/0.45% Ns 1000 Ml IV 50 mls/hr .Q20H IVETTE Administration Cefepime HCl 1 gm in 100 mls @ 100 mls/hr 12/11/17 10:00 Maxipime 1gm IVPB 12/13/17 22:01 DAILY [facility] Protocol Vancomycin HCl 500 mg in 100 mls @ 200 mls/hr 12/11/17 10:00 Vancomycin 500mg In Ns IVPB Q12 IVETTE Insulin Human Regular 0 units 12/08/17 16:30 12/10/17 22:44 Humulin R Low SC Not Given ACHS [facility] Protocol Levalbuterol HCl 0.63 mg 12/08/17 16:08 12/10/17 13:58 Xopenex IH 0.63 mg [id number] PRN Administration Shortness of Breath Methylprednisolone 40 mg 12/08/17 22:00 12/10/17 22:48 Solu-Medrol IVP 40 mg Q12 IVETTE Administration Pantoprazole Sodium 40 mg 12/10/17 10:00 12/10/17 11:44 Protonix Inj IVP 40 mg DAILY IVETTE Administration - Patient Studies Lab Studies: Lab Studies 12/10/17 12/10/17 12/10/17 Range/Units 22:02 16:07 11:08 WBC (4.5-11.0) 10^3/ul RBC (3.5-6.1) 10^6/uL Hgb (12.0-16.0) g/dL Hct (36.0-48.0) % MCV (80.0-105.0) fl MCH (25.0-35.0) pg MCHC (31.0-37.0) g/dl RDW (11.5-14.5) % Plt Count (120.0-450.0) 10^3/uL MPV (7.0-11.0) fl APTT (25.1-36.5) Seconds pCO2 (35-45) mm/Hg pO2 (80-100) mm/Hg HCO3 (21-28) mmol/L ABG pH (7.35-7.45) ABG Total CO2 (22-28) mmol.L ABG O2 Saturation (95-98) % ABG O2 Content (15-23) ML/dl ABG Base Excess (-2.0-3.0) mmol/L ABG Hemoglobin (11.7-17.4) g/dL ABG Carboxyhemoglobin (0.5-1.5) % POC ABG HHb (Measured) (0-5) % ABG Methemoglobin (0.0-3.0) % ABG O2 Capacity (16-24) mL/dl Hgb O2 Saturation (95.0-98.0) % FiO2 % Sodium (132-148) mmol/L Potassium (3.6-5.0) mmol/L Chloride (98-107) mmol/L Carbon Dioxide (21-33) mmol/L Anion Gap (10-20) BUN (7-21) mg/dL Creatinine (0.7-1.2) mg/dl Est GFR ( Amer) Est GFR (Non-Af Amer) POC Glucose (mg/dL) 198 H 183 H 167 H (65-110) mg/dL Random Glucose (70-110) mg/dL Calcium (8.4-10.5) mg/dL Troponin I ng/mL Vancomycin Trough (5.0-10.0) ug/mL 12/10/17 12/10/17 12/10/17 Range/Units 08:20 07:34 05:30 WBC (4.5-11.0) 10^3/ul RBC (3.5-6.1) 10^6/uL Hgb (12.0-16.0) g/dL Hct (36.0-48.0) % MCV (80.0-105.0) fl MCH (25.0-35.0) pg MCHC (31.0-37.0) g/dl RDW (11.5-14.5) % Plt Count (120.0-450.0) 10^3/uL MPV (7.0-11.0) fl APTT 56.3 H (25.1-36.5) Seconds pCO2 43 (35-45) mm/Hg pO2 81.0 (80-100) mm/Hg HCO3 26.0 (21-28) mmol/L ABG pH 7.39 (7.35-7.45) ABG Total CO2 27.3 (22-28) mmol.L ABG O2 Saturation 97.7 (95-98) % ABG O2 Content 12.1 L (15-23) ML/dl ABG Base Excess 0.9 (-2.0-3.0) mmol/L ABG Hemoglobin 8.9 L (11.7-17.4) g/dL ABG Carboxyhemoglobin 1.1 (0.5-1.5) % POC ABG HHb (Measured) 2.3 (0-5) % ABG Methemoglobin 1.0 (0.0-3.0) % ABG O2 Capacity 12.4 L (16-24) mL/dl Hgb O2 Saturation 95.6 (95.0-98.0) % FiO2 50.0 % Sodium (132-148) mmol/L Potassium (3.6-5.0) mmol/L Chloride (98-107) mmol/L Carbon Dioxide (21-33) mmol/L Anion Gap (10-20) BUN (7-21) mg/dL Creatinine (0.7-1.2) mg/dl Est GFR ( Amer) Est GFR (Non-Af Amer) POC Glucose (mg/dL) 149 H (65-110) mg/dL Random Glucose (70-110) mg/dL Calcium (8.4-10.5) mg/dL Troponin I ng/mL Vancomycin Trough (5.0-10.0) ug/mL 12/10/17 12/10/17 12/10/17 Range/Units 05:30 05:30 05:30 WBC 11.1 H (4.5-11.0) 10^3/ul RBC 3.43 L (3.5-6.1) 10^6/uL Hgb 9.5 L (12.0-16.0) g/dL Hct 31.3 L (36.0-48.0) % MCV 91.3 (80.0-105.0) fl MCH 27.7 (25.0-35.0) pg MCHC 30.4 L (31.0-37.0) g/dl RDW 14.2 (11.5-14.5) % Plt Count 317 (120.0-450.0) 10^3/uL MPV 9.4 (7.0-11.0) fl APTT (25.1-36.5) Seconds pCO2 (35-45) mm/Hg pO2 (80-100) mm/Hg HCO3 (21-28) mmol/L ABG pH (7.35-7.45) ABG Total CO2 (22-28) mmol.L ABG O2 Saturation (95-98) % ABG O2 Content (15-23) ML/dl ABG Base Excess (-2.0-3.0) mmol/L ABG Hemoglobin (11.7-17.4) g/dL ABG Carboxyhemoglobin (0.5-1.5) % POC ABG HHb (Measured) (0-5) % ABG Methemoglobin (0.0-3.0) % ABG O2 Capacity (16-24) mL/dl Hgb O2 Saturation (95.0-98.0) % FiO2 % Sodium 148 (132-148) mmol/L Potassium 4.6 (3.6-5.0) mmol/L Chloride 108 H (98-107) mmol/L Carbon Dioxide 30 (21-33) mmol/L Anion Gap 14 (10-20) BUN 62 H (7-21) mg/dL Creatinine 0.8 (0.7-1.2) mg/dl Est GFR ( Amer) > 60 Est GFR (Non-Af Amer) > 60 POC Glucose (mg/dL) (65-110) mg/dL Random Glucose 167 H (70-110) mg/dL Calcium 9.3 (8.4-10.5) mg/dL Troponin I 0.10 D ng/mL Vancomycin Trough 19.9 H* (5.0-10.0) ug/mL Laboratory Results - last 24 hr 12/10/17 12/10/17 12/10/17 05:30 05:30 05:30 WBC 11.1 H RBC 3.43 L Hgb 9.5 L Hct 31.3 L MCV 91.3 MCH 27.7 MCHC 30.4 L RDW 14.2 Plt Count 317 MPV 9.4 APTT pCO2 pO2 HCO3 ABG pH ABG Total CO2 ABG O2 Saturation ABG O2 Content ABG Base Excess ABG Hemoglobin ABG Carboxyhemoglobin POC ABG HHb (Measured) ABG Methemoglobin ABG O2 Capacity Hgb O2 Saturation FiO2 Sodium 148 Potassium 4.6 Chloride 108 H Carbon Dioxide 30 Anion Gap 14 BUN 62 H Creatinine 0.8 Est GFR ( Amer) > 60 Est GFR (Non-Af Amer) > 60 POC Glucose (mg/dL) Random Glucose 167 H Calcium 9.3 Troponin I 0.10 D Vancomycin Trough 19.9 H* 12/10/17 12/10/17 12/10/17 05:30 07:34 08:20 WBC RBC Hgb Hct MCV MCH MCHC RDW Plt Count MPV APTT 56.3 H pCO2 43 pO2 81.0 HCO3 26.0 ABG pH 7.39 ABG Total CO2 27.3 ABG O2 Saturation 97.7 ABG O2 Content 12.1 L ABG Base Excess 0.9 ABG Hemoglobin 8.9 L ABG Carboxyhemoglobin 1.1 POC ABG HHb (Measured) 2.3 ABG Methemoglobin 1.0 ABG O2 Capacity 12.4 L Hgb O2 Saturation 95.6 FiO2 50.0 Sodium Potassium Chloride Carbon Dioxide Anion Gap BUN Creatinine Est GFR ( Amer) Est GFR (Non-Af Amer) POC Glucose (mg/dL) 149 H Random Glucose Calcium Troponin I Vancomycin Trough 12/10/17 12/10/17 12/10/17 11:08 16:07 22:02 WBC RBC Hgb Hct MCV MCH MCHC RDW Plt Count MPV APTT pCO2 pO2 HCO3 ABG pH ABG Total CO2 ABG O2 Saturation ABG O2 Content ABG Base Excess ABG Hemoglobin ABG Carboxyhemoglobin POC ABG HHb (Measured) ABG Methemoglobin ABG O2 Capacity Hgb O2 Saturation FiO2 Sodium Potassium Chloride Carbon Dioxide Anion Gap BUN Creatinine Est GFR ( Amer) Est GFR (Non-Af Amer) POC Glucose (mg/dL) 167 H 183 H 198 H Random Glucose Calcium Troponin I Vancomycin Trough EKG/Cardiology Studies: Cardiology / EKG Studies 12/10/17 07:48 ELECTROCARDIOGRAM Routine Comment: Reason For Exam: AF,NSTEMI Fingerstick Blood Sugar Results: 198 Results Reviewed to Date: Yes Critical Care Progress Note - Extremities/Vascular Does the Patient have a Central Venous Catheter?: No Does the Patient need a Central Venous Catheter?: No Does the Patient have a Acevedo Catheter?: Yes Does the Patient need a Acevedo Catheter?: Yes Catheter Insertion Criteria: Patient has acute urinary retention or bladder outlet obstruction - Restraints Justification for Restraints: High risk for self extubation - Prophylaxis GI Prophylaxis GI: PPI - Prophylaxis DVT Prophylaxis DVT: Heparin SQ - Nutrition Nutrition: Nutrition Category Date Time Status Dysphagia/Modified Consistency Diet [DIET] Diets 12/10/17 Lunch Ordered Assessment/Plan - Assessment and Plan (Free Text) Assessment: 87 y/o F with PMH of COPD, 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 Plan: Neuro: alert and awake, at baseline Pulm: hypercapneic and hypoxemic respiratory distress likely due to copd exacerbation versus transient pulmonary edema from new onset rvr a.fib superimposed with CHF. Repeat chest x-ray this morning with worsening in pulm edema. Patient desaturated off of bipap, will continue bipap for now Will give stat done lasix 40 mg ivp, and lasix 40 ivp bid. Will discontinue IVF Continue HOB elevation to 35 degrees, aspiration precautions Maintain SpO2 of 88-92% Continue with bronchodilators, tapering Solumedrol to 20q12 On abx for copd exacerbation Cardio: New onset a.fib with RVR, patient was on Cardizem gtt, which is now discontinued Currently rate controlled on Cardizem PO Chadsvasc score of 5, continue with Heparin drip, consider long term care phlebotomist anticoagulation. Street Commissioner is following -recs appreciated On ASA Echo reading pending, however preliminary report revealing LVEF of 36- CHF management as above. . ID: Afebrile, leukocytosis (resolved) CXR showed right lower lobe infiltrate with possible pneumonia and a right pleural effusion Continue Vanc and Cefepime Vanc trough was elevated, dosage was decreased to 500mg @ 200 Urine culture showed Staph. Aureus, likely contamination. GI: Continue with dysphagia diet as tolerated. Ppi for gi prophylaxis. Heme: H/H stable, at baseline, will continue to monitor Nephro: Prerenal azotemia, BUN/Cr > 20:1, fluid discontinued due to pulm congestion. Hypernatremia most likely secondary to dehydration - will encourage po intake as respiratory status improves. Decreased urine output due to bladder retention, s/p acevedo with urine output of 500 cc. Continue acevedo. Endo: Maintain euglycemia (140 - 180) DVT ppx: Heparin sc Dispo: Pending. Patient seen, examined and case discussed with the attending. - Date & Time Date: 12/11/17 Time: 10:45 <Cruzito Miles - Last Filed: 12/11/17 11:55> CCU Objective - Vital Signs / Intake & Output Vital Signs (Last 4 hours): Vital Signs Pulse Resp BP Pulse Ox 12/11/17 11:10 71 18 89 L 12/11/17 11:01 71 23 133/54 L 92 L 12/11/17 11:00 88 42 H 92 L 12/11/17 10:50 82 17 88 L 12/11/17 10:40 84 19 94 L 12/11/17 10:30 75 17 95 12/11/17 10:28 122/57 L 12/11/17 10:20 83 18 94 L 12/11/17 10:10 69 16 95 12/11/17 10:00 68 17 122/57 L 94 L 12/11/17 09:50 71 16 95 12/11/17 09:40 70 16 94 L 12/11/17 09:30 71 18 94 L 12/11/17 09:28 77 133/73 12/11/17 09:22 77 12/11/17 09:20 73 19 93 L 12/11/17 09:10 72 19 93 L 12/11/17 09:00 69 23 133/73 93 L 12/11/17 08:50 67 20 91 L 12/11/17 08:40 65 40 H 87 L 12/11/17 08:30 72 83 L 12/11/17 08:20 65 42 H 91 L 12/11/17 08:10 62 91 L 12/11/17 08:00 66 23 136/58 L 89 L Intake and Output (Last 8hrs): Intake & Output 12/10/17 12/11/17 12/11/17 22:59 06:59 14:59 Intake Total 684 250 Output Total 200 500 Balance 484 -250 Weight 88 lb 9.6 oz Intake: IV 284 250 Left Forearm 284 Oral 400 Output: Urine 200 500 Urine, Voided 200 - Medications Active Medications: Active Medications Generic Name Dose Route Start Last Admin Trade Name Freq PRN Reason Stop Dose Admin Arformoterol Tartrate 15 mcg 12/08/17 20:00 12/11/17 08:10 Brovana IH 15 mcg [id number] IVETTE Administration Aspirin 300 mg 12/09/17 10:00 12/11/17 09:29 Aspirin Supp RC 300 mg DAILY IVETTE Administration Budesonide 0.25 mg 12/08/17 20:00 12/11/17 08:10 Pulmicort Respules IH 0.25 mg [id number] IVETTE Administration Diltiazem HCl 60 mg 12/10/17 18:00 12/11/17 09:28 Cardizem PO 60 mg QID IVETTE Administration Furosemide 40 mg 12/11/17 22:00 Lasix IVP Q12 IVETTE Heparin Sodium/Sodium Chloride 25,000 units in 250 mls @ 8.001 mls/hr 11:21 12/11/17 07:55 Heparin [id number] Units/250ml 1/2 Normal Saline IV 15 units/kg/hr .Q24H PRN 6.668 mls/hr ADJUST RATE PER PROTOCOL Administration Protocol 18 UNITS/KG/HR Cefepime HCl 1 gm in 100 mls @ 100 mls/hr 12/11/17 10:00 Maxipime 1gm IVPB 12/13/17 22:01 DAILY IVETTE Protocol Vancomycin HCl 500 mg in 100 mls @ 200 mls/hr 12/11/17 10:00 12/11/17 09:29 Vancomycin 500mg In Ns IVPB 200 mls/hr Q12 IVETTE Administration Insulin Human Regular 0 units 12/08/17 16:30 12/11/17 07:49 Humulin R Low SC 1 units ACHS IVETTE Administration Protocol Levalbuterol HCl 0.63 mg 12/08/17 16:08 12/10/17 13:58 Xopenex IH 0.63 mg [id number] PRN Administration Shortness of Breath Methylprednisolone 20 mg 12/11/17 10:11 Solu-Medrol IVP Q12 IVETTE Pantoprazole Sodium 40 mg 12/10/17 10:00 12/11/17 09:28 Protonix Inj IVP 40 mg DAILY IVETTE Administration - Patient Studies Lab Studies: Lab Studies 12/11/17 12/11/17 12/11/17 Range/Units 11:26 07:10 06:30 WBC (4.5-11.0) 10^3/ul RBC (3.5-6.1) 10^6/uL Hgb (12.0-16.0) g/dL Hct (36.0-48.0) % MCV (80.0-105.0) fl MCH (25.0-35.0) pg MCHC (31.0-37.0) g/dl RDW (11.5-14.5) % Plt Count (120.0-450.0) 10^3/uL MPV (7.0-11.0) fl APTT 67.7 H (25.1-36.5) Seconds Sodium (132-148) mmol/L Potassium (3.6-5.0) mmol/L Chloride (98-107) mmol/L Carbon Dioxide (21-33) mmol/L Anion Gap (10-20) BUN (7-21) mg/dL Creatinine (0.7-1.2) mg/dl Est GFR ( Amer) Est GFR (Non-Af Amer) POC Glucose (mg/dL) 196 H 186 H (65-110) mg/dL Random Glucose (70-110) mg/dL Calcium (8.4-10.5) mg/dL 12/11/17 12/11/17 12/10/17 Range/Units 06:30 06:30 22:02 WBC 9.1 (4.5-11.0) 10^3/ul RBC 3.72 (3.5-6.1) 10^6/uL Hgb 10.3 L (12.0-16.0) g/dL Hct 34.1 L (36.0-48.0) % MCV 91.7 (80.0-105.0) fl MCH 27.7 (25.0-35.0) pg MCHC 30.2 L (31.0-37.0) g/dl RDW 14.4 (11.5-14.5) % Plt Count 319 (120.0-450.0) 10^3/uL MPV 9.3 (7.0-11.0) fl APTT (25.1-36.5) Seconds Sodium 151 H (132-148) mmol/L Potassium 4.6 (3.6-5.0) mmol/L Chloride 112 H (98-107) mmol/L Carbon Dioxide 29 (21-33) mmol/L Anion Gap 14 (10-20) BUN 63 H (7-21) mg/dL Creatinine 0.9 (0.7-1.2) mg/dl Est GFR ( Amer) > 60 Est GFR (Non-Af Amer) 59 POC Glucose (mg/dL) 198 H (65-110) mg/dL Random Glucose 191 H (70-110) mg/dL Calcium 9.4 (8.4-10.5) mg/dL 12/10/17 12/10/17 Range/Units 16:07 11:08 WBC (4.5-11.0) 10^3/ul RBC (3.5-6.1) 10^6/uL Hgb (12.0-16.0) g/dL Hct (36.0-48.0) % MCV (80.0-105.0) fl MCH (25.0-35.0) pg MCHC (31.0-37.0) g/dl RDW (11.5-14.5) % Plt Count (120.0-450.0) 10^3/uL MPV (7.0-11.0) fl APTT (25.1-36.5) Seconds Sodium (132-148) mmol/L Potassium (3.6-5.0) mmol/L Chloride (98-107) mmol/L Carbon Dioxide (21-33) mmol/L Anion Gap (10-20) BUN (7-21) mg/dL Creatinine (0.7-1.2) mg/dl Est GFR ( Amer) Est GFR (Non-Af Amer) POC Glucose (mg/dL) 183 H 167 H (65-110) mg/dL Random Glucose (70-110) mg/dL Calcium (8.4-10.5) mg/dL Laboratory Results - last 24 hr 12/10/17 12/10/17 12/10/17 11:08 16:07 22:02 WBC RBC Hgb Hct MCV MCH MCHC RDW Plt Count MPV APTT Sodium Potassium Chloride Carbon Dioxide Anion Gap BUN Creatinine Est GFR ( Amer) Est GFR (Non-Af Amer) POC Glucose (mg/dL) 167 H 183 H 198 H Random Glucose Calcium 12/11/17 12/11/17 12/11/17 06:30 06:30 06:30 WBC 9.1 RBC 3.72 Hgb 10.3 L Hct 34.1 L MCV 91.7 MCH 27.7 MCHC 30.2 L RDW 14.4 Plt Count 319 MPV 9.3 APTT 67.7 H Sodium 151 H Potassium 4.6 Chloride 112 H Carbon Dioxide 29 Anion Gap 14 BUN 63 H Creatinine 0.9 Est GFR ( Amer) > 60 Est GFR (Non-Af Amer) 59 POC Glucose (mg/dL) Random Glucose 191 H Calcium 9.4 12/11/17 12/11/17 07:10 11:26 WBC RBC Hgb Hct MCV MCH MCHC RDW Plt Count MPV APTT Sodium Potassium Chloride Carbon Dioxide Anion Gap BUN Creatinine Est GFR ( Amer) Est GFR (Non-Af Amer) POC Glucose (mg/dL) 186 H 196 H Random Glucose Calcium Critical Care Progress Note - Nutrition Nutrition: Nutrition Category Date Time Status Dysphagia/Modified Consistency Diet [DIET] Diets 12/10/17 Lunch Ordered Assessment/Plan - Assessment and Plan (Free Text) Plan: Patient seen and examined on rounds with resident, agree with note with following additions/exceptions: Patient is 87yo female with PMhx of COPD, Anemia, IPF, a/w hypercapnic resp failure requiring BIPAP, and Afib with RVR, requiring Cardizem Drip. Currently afebrile, HD stable, comfortable in NAD, off cardizem drip, on BIPAP. Patient awake, alert. CXR with worsening pulm vasc congestion, given Lasix 40mg IV x 1 with good UOP. COPD exacerbation HTN CHF exacerbation Pulm Fibrosis Anemia Afib Recommend: - supp o2, BIPAP as needed - Duonebs PRN - Solumedrol 40mg Q12hr - Lasix 40mg IV BID - Vanco, Cefepime, follow up cultures, procal - BP control - PO Cardizem - A/C, Heparin - Speech swallow eval - DC IVF - GI ppx, PPI - DVT ppx - Monitor in ICU
[2017-12-11 07:14] LABS: HEMOGLOBIN 10.3 g/dL (12.0-16.0); MEAN CELL VOLUME 91.7 fl (80.0-105.0); MEAN CORPUSCULAR HEMOGLOBIN 27.7 pg (25.0-35.0); MEAN CORPUSCULAR HGB CONC 30.2 g/dl (31.0-37.0); MEAN PLATELET VOLUME 9.3 fl (7.0-11.0); RBC 3.72 10^6/uL (3.5-6.1); RED CELL DISTRIBUTION WIDTH 14.4 % (11.5-14.5); WHITE BLOOD COUNT 9.1 10^3/ul (4.5-11.0)
--- NOTE | 2017-12-11 07:41 | CP.PCM.PN ---
Subjective - Date & Time of Evaluation Date of Evaluation: 12/11/17 Time of Evaluation: 07:00 - Subjective Subjective: Stable in ICU on BIPAP this AM. V/S noted. AF ~ 60 - 70's now PE: Lungs: rhonchi Cor: irreg., S1S2 Abd.: soft Ext.: no edema Neuro.: alert I/O= 684/200 Labs pending. trop yesterday 0.10 BC x2 NG at 48 hrs. Echo done: will read. ECG 12/10: A. Fib. No acute changes Objective - Vital Signs/Intake and Output Vital Signs (last 24 hours): Temp Pulse Resp BP Pulse Ox 97.2 F L 60 14 115/62 92 L 12/11/17 06:00 12/11/17 06:00 12/11/17 06:00 12/11/17 06:00 12/11/17 06:00 Intake and Output: 12/11/17 12/11/17 06:59 18:59 Intake Total 684 Output Total 200 Balance 484 - Medications Medications: Current Medications Arformoterol Tartrate (Brovana) 15 mcg IH [id number] [facility] Last Admin: 12/10/17 19:50 Dose: 15 mcg Aspirin (Aspirin Supp) 300 mg RC DAILY [facility] Last Admin: 12/10/17 11:43 Dose: 300 mg Budesonide (Pulmicort Respules) 0.25 mg IH [id number] [facility] Last Admin: 12/10/17 19:50 Dose: 0.25 mg Diltiazem HCl (Cardizem) 60 mg PO QID [facility] Last Admin: 12/10/17 22:47 Dose: 60 mg Heparin Sodium/Sodium Chloride (Heparin 52554 Units/250ml 1/2 Normal Saline) 25 ,000 units in 250 mls @ 8.001 mls/hr IV .Q24H PRN; Protocol; 18 UNITS/KG/HR PRN Reason: ADJUST RATE PER PROTOCOL Last Admin: 12/09/17 23:59 Dose: 15 units/kg/hr, 6.668 mls/hr Dextrose/Sodium Chloride (Dextrose 5%/0.45% Ns 1000 Ml) 1,000 mls @ 50 mls/hr IV .Q20H [facility] Last Admin: 12/10/17 11:43 Dose: 50 mls/hr Cefepime HCl (Maxipime 1gm) 1 gm in 100 mls @ 100 mls/hr IVPB DAILY IVETTE PRN Reason: Protocol Stop: 12/13/17 22:01 Vancomycin HCl (Vancomycin 500mg In Ns) 500 mg in 100 mls @ 200 mls/hr IVPB Q12 [facility] Insulin Human Regular (Humulin R Low) 0 units SC ACHS IVETTE PRN Reason: Protocol Last Admin: 12/10/17 22:44 Dose: Not Given Levalbuterol HCl (Xopenex) 0.63 mg IH [id number] PRN PRN Reason: Shortness of Breath Last Admin: 12/10/17 13:58 Dose: 0.63 mg Methylprednisolone (Solu-Medrol) 40 mg IVP Q12 [facility] Last Admin: 12/10/17 22:48 Dose: 40 mg Pantoprazole Sodium (Protonix Inj) 40 mg IVP DAILY [facility] Last Admin: 12/10/17 11:44 Dose: 40 mg - Labs Labs: 12/11/17 06:30 12/10/17 05:30 PT 12.9 SECONDS (9.4-12.5) H 12/08/17 11:05 INR 1.12 (0.93-1.08) H 12/08/17 11:05 APTT 67.7 Seconds (25.1-36.5) H 12/11/17 06:30 Assessment and Plan - Assessment and Plan (Free Text) Assessment: Dyspnea/Weakness/Respiratory Insufficiency COPD/Pneumonia R/O CHF + trops/R/O NSTEMI AF FTT at home Fall/Hip fx and repair Anemia Plan: Heparin by PTT's PO diltiazem AB/Respiratory Tx./BiPap As per Intensivists, Dr. Pena. Will check echo results Will follow.
[2017-12-11 07:45] LABS: BLOOD UREA NITROGEN 63 mg/dL (7-21); CALCIUM 9.4 mg/dL (8.4-10.5); GFR AFRICAN-AMERICAN > 60; GFR NON-AFRICAN AMERICAN 59
[2017-12-11] MEDS: Insulin Reg-LOW-Coverage SC SCH ×4 (07:49→22:15)
[2017-12-11] MEDS: Dextrose 5%/0.45% NS 1,000 ML IV SCH (07:49)
[2017-12-11] MEDS: Heparin25000 units/250ml 1/2NS 25,000 UNITS/250 ML BAG IV PRN (07:55)
--- NOTE | 2017-12-11 08:06 | RAD ---
HISTORY: sob COMPARISON: Portable chest 12/08/2017 10:54 a.m. FINDINGS: LUNGS: Increased airspace disease seen at the right chest now extending from the right base to the right suprahilar space with increasing opacity seen left perihilar and medial basilar regions as well. PLEURA: Small bilateral pleural effusions are identified with biapical pleural fibrosis again noted. CARDIOVASCULAR: Cardiac silhouette appears stable. Underlying bilateral pulmonary venous congestion is difficult to exclude at this time. OSSEOUS STRUCTURES: No significant abnormalities. VISUALIZED UPPER ABDOMEN: Normal. OTHER FINDINGS: None. IMPRESSION: Increased right-sided airspace disease now all fashion on all in the right base but also extending cephalad to include the perihilar right suprahilar distributions. Left perihilar and medial basilar infiltrate not excluded. Underlying CHF is in question as well. Right pleural effusion unchanged. Small pleural effusion is now present.
[2017-12-11] MEDS: Budesonide 0.25 mg/2 ml Inhal Susp UD IH SCH ×2 (08:10→20:02)
[2017-12-11] MEDS: Arformoterol 15 mcg/2 ml Inh Sol IH SCH ×2 (08:10→20:02)
[2017-12-11] MEDS: MethylPREDNISolone 40 mg Vial IVP SCH ×2 (09:29→22:03)
[2017-12-11] MEDS: Vancomycin 500mg in NS 500 MG/100 ML BAG IVPB SCH ×2 (09:29→21:53)
[2017-12-11] MEDS ORDERED: Vancomycin 1 g Inj IVPB SCH (10:00)
[2017-12-11] MEDS ORDERED: Morphine 2 mg/ml ISec IVP STA (11:39)
[2017-12-11] MEDS: Cefepime 1gm in NS 100ml 1 GM/100 ML BAG IVPB SCH (14:01)
--- NOTE | 2017-12-11 18:33 | PN ---
DATE: 12/11/2017 CRITICAL CARE PROGRESS NOTE SUBJECTIVE: This 87-year-old female was examined in ICU bed 6 and this case was reviewed in detail with herself, district plant supervisor Dr. Miles, Dr. Simone Alva from Cardiology, and her nurse Jeannie. The patient experienced acute shortness of breath earlier this morning. She had a stat portable chest x-ray done that was reviewed and shows evidence of right pleural effusion, infiltrate, and new congestive heart failure. The patient was given a stat dose of intravenous Lasix and is currently diuresing nicely. She remains extremely anxious and is now wearing a BiPAP mask. She denies any active chest pain and there have been no reports of hemoptysis, fever, or chills. A 2D echocardiogram has been performed and the results are currently pending. She remains in atrial fibrillation on the quality assurance monitor body and has had no bowel movements in the past 24 hours, but appetite has been poor. PHYSICAL EXAMINATION: VITAL SIGNS: Her temperature is 97.2, respirations 18, pulse 71, blood pressure 133/54 with pulse ox of 89% to 92%. Urine output is 500 mL thus far today. HEENT: Head is normocephalic, atraumatic. Eyes: No icterus. Ears clear. Throat: Noninjected. NECK: Supple. HEART: Irregular, S1, S2. LUNGS: Basilar rales. ABDOMEN: Soft. EXTREMITIES: No edema. SKIN: Without rash. NEUROLOGICAL: Moves all four extremities. PSYCHOLOGICAL: Highly anxious. VASCULAR: Legs warm to touch. LABORATORY DATA: White count 9100, hemoglobin 10.3, hematocrit 34.1, and platelets 319,000. PTT 67.7 on IV heparin protocol. Sodium 151, K 4.6, chloride 112, bicarb 29. BUN 63, creatinine 0.9. Random blood sugar 196. Influenza A and B serology negative. Chest x-ray was reviewed. It shows acute CHF, right pleural effusion, right lower lung infiltrate. EKG shows atrial fibrillation with nonspecific ST-T wave changes and 2D echocardiogram is completed, but not interpreted at present. Urine culture showed Staph aureus sensitive to vancomycin. Blood culture showed no growth at 3 days and nasal swabs shows no MRSA. IMPRESSION: An 87-year-old female with multiple medical problems including acute respiratory insufficiency, acute congestive heart failure, myocardial infarction, new onset atrial fibrillation, chronic obstructive pulmonary disease, newly noted anemia, obstipation, right lower lung pneumonia. PLAN: The plan as discussed with the patient, Nursing, district plant supervisor, and Dr. Simone Alva from Cardiology will be to maintain this patient in the ICU. Burleson catheter has been reinserted for accurate I's and O's. She is ordered to have a pureed diet with thin liquids with cautious monitoring of oral intake and she will have continued I and O of urinary output. She continues on medications including BiPAP, Brovana inhalational therapy, Cardizem 60 mg p.o. q.i.d., IV heparin protocol with daily PTT levels, regular low-dose insulin protocol before meals and at bedtime, Lasix 40 mg IV q.12, Maxipime 1 g IV q.24, Protonix 40 mg IV daily, Pulmicort inhalational therapy q.12, Solu-Medrol 20 mg IV q.12, vancomycin dose reduced to 500 mg IV q.12, and Xopenex 0.63 inhalational therapy q. 6 hours. She is ordered to be maintained on BiPAP. She will have a repeat urine culture performed and basic metabolic panel and CBC in a.m. I will ask the pharmacy to mix all intravenous medications and D5W as tolerated. Overall prognosis remains poor. The patient desires to be a full code at present and greater than 35 minutes was spent in the care management and adjustment of medication and orders and discussion with Intensive Care Nursing and Cardiology today. All questions were answered. Rossy Pena MD MTDD
[2017-12-11] MEDS ORDERED: Morphine 2 mg/ml ISec IVP ONE ×2 (21:09→23:45)
[2017-12-12 06:00] LABS: MEAN CELL VOLUME 92.8 fl (80.0-105.0); MEAN CORPUSCULAR HEMOGLOBIN 28.4 pg (25.0-35.0); MEAN CORPUSCULAR HGB CONC 30.6 g/dl (31.0-37.0); MEAN PLATELET VOLUME 9.2 fl (7.0-11.0); RBC 3.87 10^6/uL (3.5-6.1); RED CELL DISTRIBUTION WIDTH 14.7 % (11.5-14.5); WHITE BLOOD COUNT 8.9 10^3/ul (4.5-11.0)
[2017-12-12 06:17] LABS: BLOOD UREA NITROGEN 62 mg/dL (7-21); CALCIUM 9.5 mg/dL (8.4-10.5); GFR AFRICAN-AMERICAN > 60; GFR NON-AFRICAN AMERICAN 53
--- NOTE | 2017-12-12 07:10 | CP.CCUPN ---
<XuanpatricEmily - Last Filed: 12/12/17 12:20> CCU Subjective - Physician Review Subjective (Free Text): 12/12/17 07:52 As per patient's nurse, patient was agitated over night, removed her bipap. Patient was refusing bipap. This AM, patient remained in distress on bipap, very cachetic. Appears confused. Unable to obtain ROS due to mental status. Critical Care Time Spent (in minutes): 45 CCU Objective - Vital Signs / Intake & Output Vital Signs (Last 4 hours): Vital Signs Pulse Resp BP Pulse Ox 12/12/17 05:20 63 37 H 97 12/12/17 05:10 62 31 H 97 12/12/17 05:00 63 42 H 129/58 L 93 L 12/12/17 04:50 97 12/12/17 04:40 78 30 H 92 L 12/12/17 04:30 66 94 L 12/12/17 04:20 84 L 12/12/17 04:10 84 26 H 67 L 12/12/17 04:00 68 30 H 136/73 94 L 12/12/17 03:50 43 L 13 97 12/12/17 03:40 71 26 H 91 L 12/12/17 03:30 68 17 97 12/12/17 03:20 68 32 H 97 Intake and Output (Last 8hrs): Intake & Output 12/11/17 12/12/17 12/12/17 22:59 06:59 14:59 Intake Total 560 Output Total 1600 Balance -1040 Intake: IV 200 Left Forearm 200 Oral 360 Output: Urine 1600 Urethral (Acevedo) 1600 - Physical Exam Head: Positive for: Atraumatic Pupils: Positive for: PERRL Extroacular Muscles: Positive for: EOMI Mouth: Positive for: Dry Pharnyx: Negative for: ERYTHEMA Neck: Positive for: Normal Range of Motion Respiratory/Chest: Positive for: Respiratory Distress, Accessory Muscle Use, Decreased Breath Sounds. Negative for: Wheezes, Rales, Retracting, Rhonchi, Tachypneic, Tender to Palpation Cardiovascular: Positive for: Murmurs, Normal S1, S2, Irregular Rhythm. Negative for: Tachycardic, Bradycardic, Rub, Gallop Abdomen: Positive for: Normal Bowel Sounds. Negative for: Tenderness, Distention, Peritoneal Signs Rectal: Negative for: Gross Blood Genitourinary/Pelvic Exam: Positive for: Other (+ acevedo catheter.) Upper Extremity: Negative for: Cyanosis, Edema Lower Extremity: Negative for: Edema, CALF TENDERNESS Neurological: Positive for: Motor Func Grossly Intact, Normal Sensory Function Skin: Positive for: Pale Psychiatric: Positive for: Alert. Negative for: Normal Insight, Normal Concentration - Medications Active Medications: Active Medications Generic Name Dose Route Start Last Admin Trade Name Freq PRN Reason Stop Dose Admin Arformoterol Tartrate 15 mcg 12/08/17 20:00 12/11/17 20:02 Brovana IH 15 mcg [id number] IVETTE Administration Aspirin 300 mg 12/09/17 10:00 12/11/17 09:29 Aspirin Supp RC 300 mg DAILY IVETTE Administration Budesonide 0.25 mg 12/08/17 20:00 12/11/17 20:02 Pulmicort Respules IH 0.25 mg [id number] IVETTE Administration Diltiazem HCl 60 mg 12/10/17 18:00 12/11/17 22:04 Cardizem PO 60 mg QID IVETTE Administration Furosemide 20 mg 12/12/17 10:00 Lasix IVP Q12 IVETTE Heparin Sodium/Sodium Chloride 25,000 units in 250 mls @ 8.001 mls/hr 11:21 12/11/17 07:55 Heparin 64943 Units/250ml 1/2 Normal Saline IV 15 units/kg/hr .Q24H PRN 6.668 mls/hr ADJUST RATE PER PROTOCOL Administration Protocol 18 UNITS/KG/HR Cefepime HCl 1 gm in 100 mls @ 100 mls/hr 12/11/17 10:00 12/11/17 14:01 Maxipime 1gm IVPB 12/13/17 22:01 100 mls/hr DAILY IVETTE Administration Protocol Vancomycin HCl 500 mg in 100 mls @ 200 mls/hr 12/11/17 10:00 12/11/17 21:53 Vancomycin 500mg In Ns IVPB 200 mls/hr Q12 IVETTE Administration Insulin Human Regular 0 units 12/08/17 16:30 12/11/17 22:15 Humulin R Low SC Not Given ACHS IVETTE Protocol Levalbuterol HCl 0.63 mg 12/08/17 16:08 12/10/17 13:58 Xopenex IH 0.63 mg [id number] PRN Administration Shortness of Breath Methylprednisolone 20 mg 12/11/17 10:11 12/11/17 22:03 Solu-Medrol IVP 20 mg Q12 IVETTE Administration Pantoprazole Sodium 40 mg 12/10/17 10:00 12/11/17 09:28 Protonix Inj IVP 40 mg DAILY IVETTE Administration - Patient Studies Lab Studies: Lab Studies 12/12/17 12/12/17 12/11/17 Range/Units 05:30 05:30 22:14 WBC 8.9 (4.5-11.0) 10^3/ul RBC 3.87 (3.5-6.1) 10^6/uL Hgb 11.0 L (12.0-16.0) g/dL Hct 35.9 L (36.0-48.0) % MCV 92.8 (80.0-105.0) fl MCH 28.4 (25.0-35.0) pg MCHC 30.6 L (31.0-37.0) g/dl RDW 14.7 H (11.5-14.5) % Plt Count 297 (120.0-450.0) 10^3/uL MPV 9.2 (7.0-11.0) fl APTT (25.1-36.5) Seconds Sodium 154 H (132-148) mmol/L Potassium 4.1 (3.6-5.0) mmol/L Chloride 110 H (98-107) mmol/L Carbon Dioxide 34 H (21-33) mmol/L Anion Gap 14 (10-20) BUN 62 H (7-21) mg/dL Creatinine 1.0 (0.7-1.2) mg/dl Est GFR ( Amer) > 60 Est GFR (Non-Af Amer) 53 POC Glucose (mg/dL) 177 H (65-110) mg/dL Random Glucose 153 H (70-110) mg/dL Calcium 9.5 (8.4-10.5) mg/dL 12/11/17 12/11/17 12/11/17 Range/Units 16:03 11:26 07:10 WBC (4.5-11.0) 10^3/ul RBC (3.5-6.1) 10^6/uL Hgb (12.0-16.0) g/dL Hct (36.0-48.0) % MCV (80.0-105.0) fl MCH (25.0-35.0) pg MCHC (31.0-37.0) g/dl RDW (11.5-14.5) % Plt Count (120.0-450.0) 10^3/uL MPV (7.0-11.0) fl APTT (25.1-36.5) Seconds Sodium (132-148) mmol/L Potassium (3.6-5.0) mmol/L Chloride (98-107) mmol/L Carbon Dioxide (21-33) mmol/L Anion Gap (10-20) BUN (7-21) mg/dL Creatinine (0.7-1.2) mg/dl Est GFR ( Amer) Est GFR (Non-Af Amer) POC Glucose (mg/dL) 180 H 196 H 186 H (65-110) mg/dL Random Glucose (70-110) mg/dL Calcium (8.4-10.5) mg/dL 12/11/17 12/11/17 12/11/17 Range/Units 06:30 06:30 06:30 WBC 9.1 (4.5-11.0) 10^3/ul RBC 3.72 (3.5-6.1) 10^6/uL Hgb 10.3 L (12.0-16.0) g/dL Hct 34.1 L (36.0-48.0) % MCV 91.7 (80.0-105.0) fl MCH 27.7 (25.0-35.0) pg MCHC 30.2 L (31.0-37.0) g/dl RDW 14.4 (11.5-14.5) % Plt Count 319 (120.0-450.0) 10^3/uL MPV 9.3 (7.0-11.0) fl APTT 67.7 H (25.1-36.5) Seconds Sodium 151 H (132-148) mmol/L Potassium 4.6 (3.6-5.0) mmol/L Chloride 112 H (98-107) mmol/L Carbon Dioxide 29 (21-33) mmol/L Anion Gap 14 (10-20) BUN 63 H (7-21) mg/dL Creatinine 0.9 (0.7-1.2) mg/dl Est GFR ( Amer) > 60 Est GFR (Non-Af Amer) 59 POC Glucose (mg/dL) (65-110) mg/dL Random Glucose 191 H (70-110) mg/dL Calcium 9.4 (8.4-10.5) mg/dL Laboratory Results - last 24 hr 12/11/17 12/11/17 12/11/17 06:30 06:30 06:30 WBC 9.1 RBC 3.72 Hgb 10.3 L Hct 34.1 L MCV 91.7 MCH 27.7 MCHC 30.2 L RDW 14.4 Plt Count 319 MPV 9.3 APTT 67.7 H Sodium 151 H Potassium 4.6 Chloride 112 H Carbon Dioxide 29 Anion Gap 14 BUN 63 H Creatinine 0.9 Est GFR ( Amer) > 60 Est GFR (Non-Af Amer) 59 POC Glucose (mg/dL) Random Glucose 191 H Calcium 9.4 12/11/17 12/11/17 12/11/17 07:10 11:26 16:03 WBC RBC Hgb Hct MCV MCH MCHC RDW Plt Count MPV APTT Sodium Potassium Chloride Carbon Dioxide Anion Gap BUN Creatinine Est GFR ( Amer) Est GFR (Non-Af Amer) POC Glucose (mg/dL) 186 H 196 H 180 H Random Glucose Calcium 12/11/17 12/12/17 12/12/17 22:14 05:30 05:30 WBC 8.9 RBC 3.87 Hgb 11.0 L Hct 35.9 L MCV 92.8 MCH 28.4 MCHC 30.6 L RDW 14.7 H Plt Count 297 MPV 9.2 APTT Sodium 154 H Potassium 4.1 Chloride 110 H Carbon Dioxide 34 H Anion Gap 14 BUN 62 H Creatinine 1.0 Est GFR ( Amer) > 60 Est GFR (Non-Af Amer) 53 POC Glucose (mg/dL) 177 H Random Glucose 153 H Calcium 9.5 Fingerstick Blood Sugar Results: 180 Results Reviewed to Date: Yes Critical Care Progress Note - Extremities/Vascular Does the Patient have a Central Venous Catheter?: No Does the Patient need a Central Venous Catheter?: No Does the Patient have a Acevedo Catheter?: Yes Does the Patient need a Acevedo Catheter?: Yes Catheter Insertion Criteria: Patient has acute urinary retention or bladder outlet obstruction - Restraints Justification for Restraints: High risk for harming self - Prophylaxis GI Prophylaxis GI: PPI - Prophylaxis DVT Prophylaxis DVT: Heparin SQ - Nutrition Nutrition: Nutrition Category Date Time Status Dysphagia/Modified Consistency Diet [DIET] Diets 12/10/17 Lunch Ordered Assessment/Plan - Assessment and Plan (Free Text) Assessment: Patienti is an 87 y/o F with PMHx of COPD, 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 Plan: Neuro: alert and awake, at baseline Pulm: hypercapneic and hypoxemic respiratory distress likely due to copd exacerbation versus transient pulmonary edema from new onset rvr a.fib superimposed with CHF. Repeat chest x-ray this morning with improved in pulm edema. Will attempt to wean off of bipap today Holding lasix due to worsening in hypernatremia. Continue HOB elevation to 35 degrees, aspiration precautions Maintain SpO2 of 88-92% Continue with bronchodilators, tapering Solumedrol to 20q12 On abx for copd exacerbation Cardio: New onset a.fib with RVR- HR controlled Will reduce Cardizem to 30 qid due to episodes of bradycardia. Chadsvasc score of 5, continue with Heparin drip, consider intermediate anticoagulation. 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 ID: Afebrile, leukocytosis (resolved) CXR showed right lower lobe infiltrate with possible pneumonia and a right pleural effusion Continue Vanc and Cefepime Urine culture showed Staph. Aureus, likely contamination. GI: Continue with dysphagia diet as tolerated. Ppi for gi prophylaxis. Heme: H/H stable, at baseline, will continue to monitor Nephro: Prerenal azotemia, BUN/Cr > 20:1, fluid discontinued due to pulm congestion. Hypernatremia most likely secondary to dehydration - will hold lasix, and monitor. Monitor I&Os. Endo: Maintain euglycemia (140 - 180) DVT ppx: Heparin drip for afib. Dispo: Pending. Will attempt to reach family. Patient seen, examined and case discussed with the attending. - Date & Time Date: 12/12/17 Time: 10:05 <Cruzito Miles - Last Filed: 12/12/17 12:58> CCU Objective - Vital Signs / Intake & Output Vital Signs (Last 4 hours): Vital Signs Pulse BP 12/12/17 10:22 45 L 117/66 Intake and Output (Last 8hrs): Intake & Output 12/11/17 12/12/17 12/12/17 22:59 06:59 14:59 Intake Total 560 Output Total 1600 Balance -1040 Intake: IV 200 Left Forearm 200 Oral 360 Output: Urine 1600 Urethral (Acevedo) 1600 - Medications Active Medications: Active Medications Generic Name Dose Route Start Last Admin Trade Name Freq PRN Reason Stop Dose Admin Arformoterol Tartrate 15 mcg 12/08/17 20:00 12/12/17 07:25 Brovana IH 15 mcg [id number] IVETTE Administration Aspirin 300 mg 12/09/17 10:00 12/12/17 10:27 Aspirin Supp RC 300 mg DAILY IVETTE Administration Budesonide 0.25 mg 12/08/17 20:00 12/12/17 07:26 Pulmicort Respules IH 0.25 mg [id number] IVETTE Administration Diltiazem HCl 30 mg 12/12/17 09:09 12/12/17 10:22 Cardizem PO Not Given QID IVETTE Heparin Sodium/Sodium Chloride 25,000 units in 250 mls @ 8.001 mls/hr 11:21 12/11/17 07:55 Heparin 43557 Units/250ml 1/2 Normal Saline IV 15 units/kg/hr .Q24H PRN 6.668 mls/hr ADJUST RATE PER PROTOCOL Administration Protocol 18 UNITS/KG/HR Cefepime HCl 1 gm in 100 mls @ 100 mls/hr 12/11/17 10:00 12/12/17 10:32 Maxipime 1gm IVPB 12/13/17 22:01 100 mls/hr DAILY IVETTE Administration Protocol Vancomycin HCl 500 mg in 100 mls @ 200 mls/hr 12/11/17 10:00 12/12/17 10:23 Vancomycin 500mg In Ns IVPB 200 mls/hr Q12 IVETTE Administration Insulin Human Regular 0 units 12/08/17 16:30 12/12/17 10:23 Humulin R Low SC Not Given ACHS IVETTE Protocol Levalbuterol HCl 0.63 mg 12/08/17 16:08 12/10/17 13:58 Xopenex IH 0.63 mg [id number] PRN Administration Shortness of Breath Methylprednisolone 20 mg 12/11/17 10:11 12/12/17 10:23 Solu-Medrol IVP 20 mg Q12 IVETTE Administration Pantoprazole Sodium 20 mg 12/12/17 10:39 Protonix Inj IVP DAILY IVETTE - Patient Studies Lab Studies: Lab Studies 12/12/17 12/12/17 12/11/17 Range/Units 05:30 05:30 22:14 WBC 8.9 (4.5-11.0) 10^3/ul RBC 3.87 (3.5-6.1) 10^6/uL Hgb 11.0 L (12.0-16.0) g/dL Hct 35.9 L (36.0-48.0) % MCV 92.8 (80.0-105.0) fl MCH 28.4 (25.0-35.0) pg MCHC 30.6 L (31.0-37.0) g/dl RDW 14.7 H (11.5-14.5) % Plt Count 297 (120.0-450.0) 10^3/uL MPV 9.2 (7.0-11.0) fl Sodium 154 H (132-148) mmol/L Potassium 4.1 (3.6-5.0) mmol/L Chloride 110 H (98-107) mmol/L Carbon Dioxide 34 H (21-33) mmol/L Anion Gap 14 (10-20) BUN 62 H (7-21) mg/dL Creatinine 1.0 (0.7-1.2) mg/dl Est GFR ( Amer) > 60 Est GFR (Non-Af Amer) 53 POC Glucose (mg/dL) 177 H (65-110) mg/dL Random Glucose 153 H (70-110) mg/dL Calcium 9.5 (8.4-10.5) mg/dL 12/11/17 Range/Units 16:03 WBC (4.5-11.0) 10^3/ul RBC (3.5-6.1) 10^6/uL Hgb (12.0-16.0) g/dL Hct (36.0-48.0) % MCV (80.0-105.0) fl MCH (25.0-35.0) pg MCHC (31.0-37.0) g/dl RDW (11.5-14.5) % Plt Count (120.0-450.0) 10^3/uL MPV (7.0-11.0) fl Sodium (132-148) mmol/L Potassium (3.6-5.0) mmol/L Chloride (98-107) mmol/L Carbon Dioxide (21-33) mmol/L Anion Gap (10-20) BUN (7-21) mg/dL Creatinine (0.7-1.2) mg/dl Est GFR ( Amer) Est GFR (Non-Af Amer) POC Glucose (mg/dL) 180 H (65-110) mg/dL Random Glucose (70-110) mg/dL Calcium (8.4-10.5) mg/dL Laboratory Results - last 24 hr 12/11/17 12/11/17 12/12/17 16:03 22:14 05:30 WBC 8.9 RBC 3.87 Hgb 11.0 L Hct 35.9 L MCV 92.8 MCH 28.4 MCHC 30.6 L RDW 14.7 H Plt Count 297 MPV 9.2 Sodium Potassium Chloride Carbon Dioxide Anion Gap BUN Creatinine Est GFR ( Amer) Est GFR (Non-Af Amer) POC Glucose (mg/dL) 180 H 177 H Random Glucose Calcium 12/12/17 05:30 WBC RBC Hgb Hct MCV MCH MCHC RDW Plt Count MPV Sodium 154 H Potassium 4.1 Chloride 110 H Carbon Dioxide 34 H Anion Gap 14 BUN 62 H Creatinine 1.0 Est GFR ( Amer) > 60 Est GFR (Non-Af Amer) 53 POC Glucose (mg/dL) Random Glucose 153 H Calcium 9.5 Critical Care Progress Note - Nutrition Nutrition: Nutrition Category Date Time Status Dysphagia/Modified Consistency Diet [DIET] Diets 12/10/17 Lunch Ordered Assessment/Plan - Assessment and Plan (Free Text) Plan: Patient seen and examined on rounds with resident, agree with note with following additions/exceptions: Patient is 87yo female with PMhx of COPD, Anemia, IPF, a/w hypercapnic resp failure requiring BIPAP, and Afib with RVR, requiring Cardizem Drip. Currently afebrile, HD stable, comfortable in NAD, off cardizem drip, on BIPAP. Patient awake, alert. CXR with worsening pulm vasc congestion, given Lasix 40mg x 2 yesterday with net output of 1.5L COPD exacerbation HTN CHF exacerbation Pulm Fibrosis Anemia Afib Recommend: - supp o2, BIPAP as needed - Duonebs PRN - Solumedrol 20mg Q12hr - decrease dose of Lasix to 20mg IV BID (increasing Cr, Na) - Vanco, Cefepime, follow up cultures - BP control - PO Cardizem - A/C, Heparin - Speech swallow eval - GI ppx, PPI - DVT ppx - Monitor in ICU
[2017-12-12] MEDS: Arformoterol 15 mcg/2 ml Inh Sol IH SCH ×2 (07:25→20:22)
[2017-12-12] MEDS: Budesonide 0.25 mg/2 ml Inhal Susp UD IH SCH ×2 (07:26→20:23)
[2017-12-12] MEDS ORDERED: Morphine 5 MG/ML SYRINGE IVP STA (07:32)
[2017-12-12] MEDS ORDERED: Morphine 2 mg/ml ISec IVP STA (07:35)
--- NOTE | 2017-12-12 08:12 | CARD ---
APPROVED REPORT EXAM: Two-dimensional and M-mode echocardiogram with Doppler and color Doppler. INDICATION 2D DIMENSIONS IVSd1.2 (0.7-1.1cm)LVDd3.5 (3.9-5.9cm) PWd1.3 (0.7-1.1cm)LVDs2.9 (2.5-4.0cm) FS (%) 17.0 %LVEF (%)36.4 (>50%) M-Mode DIMENSIONS Left Atrium (MM)4.00 (2.5-4.0cm)Aortic Root3.00 (2.2-3.7cm) Aortic Cusp Exc.1.90 (1.5-2.0cm) Aortic Valve AoV Peak Ftgvwmfe728.0cm/Cory Peak GR.6mmHg Mitral Valve MV E Mdzbnbrx271.0cm/s TDI Lateral E' Peak V6.43cm/sMedial E' Peak V6.78cm/sE/Lateral E'22.9 E/Medial E'21.7 Tricuspid Valve TR Peak [id number]/sRAP [id number] Peak Gr.42mmHg [id number] LEFT VENTRICLE The left ventricle is normal size. There is moderate concentric left ventricular hypertrophy. The left ventricular function is normal. The left ventricular ejection fraction is within the normal range. There is normal LV segmental wall motion. Tissue Doppler imaging reveals moderate left ventricular diastolic dysfunction. RIGHT VENTRICLE The right ventricle is normal size. The right ventricular systolic function is normal. ATRIA The left atrium size is normal. The right atrium is mildly dilated. The lack of respiratory variation in the inferior vena cava diameter is noted. The interatrial septum is intact with no evidence for an atrial septal defect. AORTIC VALVE The aortic valve is mildly thickened. There is trace aortic regurgitation. There is no aortic valvular stenosis. MITRAL VALVE The mitral valve is moderately thickened. Mitral regurgitation is mild. TRICUSPID VALVE The tricuspid valve is normal in structure. There is moderate tricuspid regurgitation. PULMONIC VALVE The pulmonary valve is normal in structure. GREAT VESSELS The aortic root is normal in size. Dilated IVC with poor inspiration collapse is consistent with elevated right atrial pressure. PERICARDIAL EFFUSION There is no pleural effusion. There is a small pericardial effusion. <Conclusion> Dilated RA. Normal LV size and systolic function. Moderate concentric LVH. Mild MR. Moderate TR. Small pericardial effusion.
--- NOTE | 2017-12-12 08:22 | RAD ---
HISTORY: pna, follow up COMPARISON: Comparison is made with 12/11/2017 FINDINGS: LUNGS: Interval mild improvement in the previously seen diffuse reticular and nodular opacities in the lungs larger on the right since the previous exam. Hyperinflation of the lungs is again noted. PLEURA: Bilateral pleural effusions are seen. CARDIOVASCULAR: Normal. OSSEOUS STRUCTURES: No significant abnormalities. VISUALIZED UPPER ABDOMEN: Normal. OTHER FINDINGS: None. IMPRESSION: Interval mild improvement in the nodular opacities at the lungs since the previous exam. Persistent bilateral pleural effusions.
[2017-12-12] MEDS ORDERED: Vancomycin 500mg in NS 500 MG/100 ML BAG IVPB SCH (10:00)
[2017-12-12] MEDS ORDERED: Vancomycin 1 g Inj IVPB SCH (10:00)
[2017-12-12] MEDS: Vancomycin 500mg in NS 500 MG/100 ML BAG IVPB SCH ×2 (10:23→21:47)
[2017-12-12] MEDS: Insulin Reg-LOW-Coverage SC SCH ×4 (10:23→22:28)
[2017-12-12] MEDS: MethylPREDNISolone 40 mg Vial IVP SCH ×2 (10:23→21:40)
[2017-12-12] MEDS: Cefepime 1gm in NS 100ml 1 GM/100 ML BAG IVPB SCH (10:32)
--- NOTE | 2017-12-12 14:56 | PN ---
DATE: 12/12/2017 SUBJECTIVE: The patient is seen lying in bed in the ICU. She remains on BiPAP system. She is arousable and appears to be in no distress. CURRENT MEDICATIONS: Include aspirin, Brovana, IV heparin, insulin coverage, cefepime, Protonix, Pulmicort inhaler, Solu-Medrol, vancomycin, and Xopenex. PHYSICAL EXAMINATION GENERAL: She is a very elderly woman who appears comfortable at rest. VITAL SIGNS: Her blood pressure is 124/60 with a pulse of 54 in atrial fibrillation, respirations are 14. She is currently afebrile. HEENT: BiPAP mask is in place. CHEST: Bilateral scattered rhonchi noted. HEART: PMI displaced laterally with an irregularly irregular rhythm and systolic murmur in the left sternal border. ABDOMEN: Soft and nontender with normoactive bowel sounds. EXTREMITIES: No edema. DIAGNOSTIC DATA: Bilateral pleural effusions are noted, diffuse interstitial pattern persists. Potassium is 4.1, sodium is 154, BUN and creatinine are 62 and 1.0. White count is 8.9, hemoglobin and hematocrit 11 and 35.9 with a platelet count of 297,000. IMPRESSION: 1. Respiratory failure, remains about the same. 2. Atrial fibrillation with slow ventricular response, despite no use of rate control therapy. 3. History of fall with hip fracture and surgical repair. 4. Chronic anemia. 5. Recent elevated troponin. RECOMMENDATIONS: Continued supportive care is advised. Her echocardiogram was reviewed and showed evidence of normal LV size and systolic function with moderate concentric LVH, moderate tricuspid regurgitation and mild mitral regurgitation. Anticoagulant therapy should continue continued unless contraindication develops. Her overall prognosis remains guarded. We will be happy to follow along as needed. Lester Andrews MD MTDQasim
--- NOTE | 2017-12-12 15:35 | PN ---
DATE: 12/12/2017 CRITICAL CARE PROGRESS NOTE SUBJECTIVE: This 87-year-old female was examined in ICU, bed 6. She was wearing a BiPAP mask. She remains weak, deconditioned, and has multiple medical problems including recent subendocardial myocardial infarction, newly noted right lower lung pneumonia, congestive heart failure in the setting of decompensated chronic obstructive pulmonary disease. The patient remains weak and deconditioned and is being fed by nursing staff, a pureed diet with thin liquids. There have been no reports of fever or chills. No hemoptysis. The patient remains bedridden. PHYSICAL EXAMINATION: VITAL SIGNS: Temperature is 97, respirations 30, pulse 67, and blood pressure 137/59 with a pulse ox of 93%. Urine output was approximately 1300 mL yesterday. This was after the administration of IV Lasix for clinical congestive heart failure. She remains in a negative fluid balance. court recording monitor shows atrial fibrillation. HEENT: Head: Normocephalic, atraumatic. Eyes: No icterus. Ears: Clear. Throat: Noninjected. NECK: Supple. HEART: Irregular, S1, S2. LUNGS: Occasional rhonchi at the right base. ABDOMEN: Soft. EXTREMITIES: No edema. SKIN: Without rash. NEUROLOGICAL: Deconditioned. VASCULAR: Legs warm to touch. PSYCHOLOGICAL: Patient remains alert, but anxious. LABORATORY DATA: White count 8900, hemoglobin 11, hematocrit 35.9, and platelets 297,000. PTT 67.7 on IV heparin. Sodium 154, K 4.1, chloride 110, bicarb 34. BUN 62, creatinine 1.0. Random blood sugar was 153. Calcium 9.4. Influenza A and B serology negative. Chest x-ray was reviewed and was consistent with mild CHF and a right lower lung infiltrate with a mild pleural effusion. A 2D echocardiogram was reviewed with Dr. Lester Andrews from Cardiology. It showed a dilated right atrium, a normal left ventricular size and systolic function, mild mitral regurgitation, moderate tricuspid regurgitation, and no atrial septal defect. IMPRESSION: An 87-year-old female status post subendocardial myocardial infarction with comorbidities of right lung pneumonia; clinical congestive heart failure, improved; new-onset atrial fibrillation, on IV heparin protocol; chronic obstructive pulmonary disease with exacerbation; deconditioning; and anemia. PLAN: The plan as discussed with the patient, family, Nursing, cardiology co-consultants, and facility worker is to continue patient in critical care, wearing BiPAP while feeding patient cautiously to avoid aspiration pneumonia and the patient does require a Burleson catheter for I's and O's and prevention of incontinence and skin breakdown at present. She is ordered to have Xopenex inhalational therapy q.6, vancomycin 500 mg IV q.12, Solu-Medrol 20 mg IV q.12, Pulmicort inhalational therapy q.12, Protonix 20 mg IV daily, Maxipime 1 g IV q.24, regular low-dose insulin protocol before meals and bedtime, IV heparin protocol, monitoring PTT levels daily, Cardizem 30 mg p.o. q.i.d., Brovana inhalational therapy q.12. The patient is ordered to have a urine culture, CBC, and basic metabolic panel in the a.m. The patient had requested to be full code and overall prognosis remains guarded at present. Greater than 35 minutes was spent in the care management, review of x-rays, labs, medication, outlining of orders, and discussion with the intensive care team and Cardiology today. All questions were answered. Rossy Pena MD MTDD
[2017-12-12] MEDS: Morphine 2 mg/ml ISec IVP PRN (18:17)
[2017-12-12] MEDS: Heparin25000 units/250ml 1/2NS 25,000 UNITS/250 ML BAG IV PRN (22:07)
[2017-12-13] MEDS: Morphine 2 mg/ml ISec IVP PRN ×3 (06:22→22:19)
[2017-12-13 06:51] LABS: BASO # 0.01 K/mm3 (0.0-2.0); BASO % 0.1 % (0.0-3.0); GRAN # 8.86 (1.4-6.5); GRAN % 94.9 % (50.0-68.0); HEMOGLOBIN 10.4 g/dL (12.0-16.0); LYMPH # 0.3 (1.2-3.4); LYMPH % 2.8 % (22.0-35.0); MEAN CELL VOLUME 93.7 fl (80.0-105.0); MEAN CORPUSCULAR HEMOGLOBIN 27.4 pg (25.0-35.0); MEAN CORPUSCULAR HGB CONC 29.3 g/dl (31.0-37.0); MEAN PLATELET VOLUME 9.9 fl (7.0-11.0); MONO # 0.2 (0.1-0.6); MONO % 2.2 % (1.0-6.0); PLATELET COUNT 285 10^3/uL (120.0-450.0); RBC 3.79 10^6/uL (3.5-6.1); RED CELL DISTRIBUTION WIDTH 14.7 % (11.5-14.5); WHITE BLOOD COUNT 9.3 10^3/ul (4.5-11.0)
[2017-12-13] MEDS: Arformoterol 15 mcg/2 ml Inh Sol IH SCH ×2 (07:23→20:51)
[2017-12-13] MEDS: Budesonide 0.25 mg/2 ml Inhal Susp UD IH SCH ×2 (07:23→20:51)
[2017-12-13 07:37] LABS: CALCIUM 9.3 mg/dL (8.4-10.5)
--- NOTE | 2017-12-13 07:38 | CP.PCM.PN ---
Subjective - Date & Time of Evaluation Date of Evaluation: 12/13/17 Time of Evaluation: 07:00 - Subjective Subjective: Stable in ICU on BIPAP/70% this AM. V/S noted. AF ~ 60 - 70's now PE: Lungs: rhonchi Cor: irreg., S1S2 Abd.: soft Ext.: no edema Neuro.: alert I/O= 850/680 recorded Labs: pending today BC x2 NG at 4 days CXR 12/12: noted Echo: Nl LV with LVH, Mild MR, Mod. TR, etc Objective - Vital Signs/Intake and Output Vital Signs (last 24 hours): Temp Pulse Resp BP Pulse Ox 98.8 F 70 38 H 107/49 L 92 L 12/13/17 06:04 12/13/17 06:04 12/13/17 07:28 12/13/17 06:01 12/13/17 06:04 Intake and Output: 12/13/17 12/13/17 06:59 18:59 Intake Total 430 Output Total 400 Balance 30 - Medications Medications: Current Medications Arformoterol Tartrate (Brovana) 15 mcg IH [id number] [facility] Last Admin: 12/13/17 07:23 Dose: 15 mcg Aspirin (Aspirin Supp) 300 mg RC DAILY [facility] Last Admin: 12/12/17 10:27 Dose: 300 mg Budesonide (Pulmicort Respules) 0.25 mg IH [id number] [facility] Last Admin: 12/13/17 07:23 Dose: 0.25 mg Diltiazem HCl (Cardizem) 30 mg PO QID [facility] Last Admin: 12/12/17 21:19 Dose: 30 mg Heparin Sodium/Sodium Chloride (Heparin 82407 Units/250ml 1/2 Normal Saline) 25 ,000 units in 250 mls @ 8.001 mls/hr IV .Q24H PRN; Protocol; 18 UNITS/KG/HR PRN Reason: ADJUST RATE PER PROTOCOL Last Admin: 12/12/17 22:07 Dose: 15 units/kg/hr, 6.668 mls/hr Cefepime HCl (Maxipime 1gm) 1 gm in 100 mls @ 100 mls/hr IVPB DAILY [facility] PRN Reason: Protocol Stop: 12/13/17 22:01 Last Admin: 12/12/17 10:32 Dose: 100 mls/hr Vancomycin HCl (Vancomycin 500mg In Ns) 500 mg in 100 mls @ 200 mls/hr IVPB Q12 IVETTE Last Admin: 12/12/17 21:47 Dose: 200 mls/hr Insulin Human Regular (Humulin R Low) 0 units SC ACHS [facility]TE PRN Reason: Protocol Last Admin: 12/12/17 22:28 Dose: Not Given Levalbuterol HCl (Xopenex) 0.63 mg IH [id number] PRN PRN Reason: Shortness of Breath Last Admin: 12/10/17 13:58 Dose: 0.63 mg Methylprednisolone (Solu-Medrol) 20 mg IVP Q12 IVETTE Last Admin: 12/12/17 21:40 Dose: 20 mg Morphine Sulfate (Morphine) 0.5 mg IVP Q4H PRN PRN Reason: Agitation Last Admin: 12/13/17 06:22 Dose: 0.5 mg Pantoprazole Sodium (Protonix Inj) 20 mg IVP DAILY IVETTE - Labs Labs: 12/13/17 05:50 12/12/17 05:30 PT 12.9 SECONDS (9.4-12.5) H 12/08/17 11:05 INR 1.12 (0.93-1.08) H 12/08/17 11:05 APTT 67.7 Seconds (25.1-36.5) H 12/11/17 06:30 Assessment and Plan - Assessment and Plan (Free Text) Assessment: Dyspnea/Weakness/Respiratory Insufficiency Hypernatremia COPD/Pneumonia R/O CHF + trops/R/O NSTEMI AF FTT at home Fall/Hip fx and repair Anemia DNR/DNI status Plan: Await AM labs. Heparin by PTT's PO diltiazem Free water IV, as per Dr. Pena AB/Respiratory Tx./BiPap As per Intensivists, Dr. Pena. [place] poor. Will follow.
[2017-12-13 08:00] LABS: LYMPHOCYTE 5 % (22.0-35.0); MONOCYTE 2 % (1.0-6.0); NEUTROPHIL 93 % (50.0-70.0); PLATELET ESTIMATE NORMAL (NORMAL)
[2017-12-13 08:01] LABS: ANISOCYTOSIS SLIGHT; HYPOCHROMIA SLIGHT
[2017-12-13 08:02] LABS: OVALOCYTES SLIGHT; TOXIC GRANULATION SLIGHT
[2017-12-13] MEDS ORDERED: Dextrose 5%/0.45% NS 1,000 ML IV SCH (08:15)
--- NOTE | 2017-12-13 09:52 | CP.CCUPN ---
<Emily House - Last Filed: 12/13/17 13:07> CCU Subjective - Physician Review Subjective (Free Text): 12/13/17 08:07 Patient remains stable, but altered on bipap overnight. Unable to obtain ROS due to mental status. Patient's niece who is patient's POA made patient DNI/DNR overnight. Critical Care Time Spent (in minutes): 45 CCU Objective - Vital Signs / Intake & Output Vital Signs (Last 4 hours): Vital Signs Temp Pulse Resp BP Pulse Ox 12/13/17 09:20 95.5 F L 56 L 15 95 12/13/17 09:19 95.5 F L 56 L 95 12/13/17 09:10 95.5 F L 57 L 18 94 L 12/13/17 09:02 95.7 F L 54 L 94 L 12/13/17 09:00 95.5 F L 58 L 21 108/45 L 95 12/13/17 08:57 95.7 F L 56 L 94 L 12/13/17 08:50 95.7 F L 60 20 97 12/13/17 08:42 95.9 F L 52 L 94 L 12/13/17 08:40 95.9 F L 59 L 15 94 L 12/13/17 08:39 95.9 F L 55 L 95 12/13/17 08:36 96.1 F L 66 95 12/13/17 08:30 96.3 F L 56 L 15 97 12/13/17 08:20 96.4 F L 58 L 21 99 12/13/17 08:10 96.6 F L 56 L 13 99 12/13/17 08:00 96.6 F L 57 L 14 121/49 L 100 12/13/17 07:50 96.8 F L 59 L 21 100 12/13/17 07:49 96.8 F L 62 97 12/13/17 07:40 96.8 F L 55 L 18 98 12/13/17 07:37 96.8 F L 55 L 97 12/13/17 07:30 97.2 F L 67 58 H 92 L 12/13/17 07:29 97.2 F L 64 94 L 12/13/17 07:28 38 H 12/13/17 07:25 97.2 F L 64 87 L 12/13/17 07:23 97.3 F L 62 94 L 12/13/17 07:22 97.3 F L 64 94 L 12/13/17 07:20 97.3 F L 65 52 H 94 L 12/13/17 07:10 97.5 F L 59 L 42 H 94 L 12/13/17 07:00 97.7 F 59 L 28 H 125/57 L 93 L 12/13/17 06:50 98.1 F 61 94 L 12/13/17 06:47 98.1 F 67 92 L 12/13/17 06:45 98.2 F 65 90 L 12/13/17 06:41 98.2 F 67 92 L 12/13/17 06:40 98.2 F 71 53 H 93 L 12/13/17 06:39 98.2 F 71 93 L 12/13/17 06:37 98.2 F 67 93 L 12/13/17 06:30 98.4 F 64 32 H 94 L 12/13/17 06:26 98.4 F 67 94 L 12/13/17 06:20 98.4 F 71 93 L 12/13/17 06:10 98.6 F 82 94 L 12/13/17 06:04 98.8 F 70 92 L 12/13/17 06:02 98.6 F 76 92 L 12/13/17 06:01 107/49 L 12/13/17 06:00 98.6 F 79 22 93 L 12/13/17 05:56 98.6 F 73 93 L On bipap, fio2 100%. Intake and Output (Last 8hrs): Intake & Output 12/12/17 12/13/17 12/13/17 22:59 06:59 14:59 Intake Total 670 180 Output Total 280 400 Balance 390 -220 Weight 91 lb Intake: IV 550 180 Left Forearm 300 180 Oral 120 Output: Urine 280 400 Urethral (Acevedo) 280 Urine, Voided 400 - Physical Exam Head: Positive for: Atraumatic Pupils: Positive for: PERRL Extroacular Muscles: Positive for: EOMI Mouth: Positive for: Dry Pharnyx: Negative for: ERYTHEMA Neck: Positive for: Normal Range of Motion Respiratory/Chest: Positive for: Respiratory Distress, Accessory Muscle Use, Decreased Breath Sounds. Negative for: Wheezes, Rales, Retracting, Rhonchi, Tachypneic, Tender to Palpation Cardiovascular: Positive for: Murmurs, Normal S1, S2, Irregular Rhythm. Negative for: Tachycardic, Bradycardic, Rub, Gallop Abdomen: Positive for: Normal Bowel Sounds. Negative for: Tenderness, Distention, Peritoneal Signs Rectal: Negative for: Gross Blood Genitourinary/Pelvic Exam: Positive for: Other (+ acevedo catheter.) Upper Extremity: Negative for: Cyanosis, Edema Lower Extremity: Negative for: Edema, CALF TENDERNESS Neurological: Positive for: Motor Func Grossly Intact, Normal Sensory Function Skin: Positive for: Pale Psychiatric: Positive for: Alert. Negative for: Normal Insight, Normal Concentration - Medications Active Medications: Active Medications Generic Name Dose Route Start Last Admin Trade Name Freq PRN Reason Stop Dose Admin Arformoterol Tartrate 15 mcg 12/08/17 20:00 12/13/17 07:23 Brovana IH 15 mcg [id number] IVETTE Administration Aspirin 300 mg 12/09/17 10:00 12/12/17 10:27 Aspirin Supp RC 300 mg DAILY IVETTE Administration Budesonide 0.25 mg 12/08/17 20:00 12/13/17 07:23 Pulmicort Respules IH 0.25 mg [id number] IVETTE Administration Diltiazem HCl 30 mg 12/12/17 09:09 12/12/17 21:19 Cardizem PO 30 mg QID IVETTE Administration Heparin Sodium/Sodium Chloride 25,000 units in 250 mls @ 8.001 mls/hr 11:21 12/12/17 22:07 Heparin 44030 Units/250ml 1/2 Normal Saline IV 15 units/kg/hr .Q24H PRN 6.668 mls/hr ADJUST RATE PER PROTOCOL Administration Protocol 18 UNITS/KG/HR Cefepime HCl 1 gm in 100 mls @ 100 mls/hr 12/11/17 10:00 12/12/17 10:32 Maxipime 1gm IVPB 12/13/17 22:01 100 mls/hr DAILY IEVTTE Administration Protocol Vancomycin HCl 500 mg in 100 mls @ 200 mls/hr 12/11/17 10:00 12/12/17 21:47 Vancomycin 500mg In Ns IVPB 200 mls/hr Q12 IVETTE Administration Dextrose 1,000 mls @ 75 mls/hr 12/13/17 09:45 Dextrose 5% In Water 1000 Ml IV .[id number] [facility] Insulin Human Regular 0 units 12/08/17 16:30 12/12/17 22:28 Humulin R Low SC Not Given ACHS [facility] Protocol Levalbuterol HCl 0.63 mg 12/08/17 16:08 12/10/17 13:58 Xopenex IH 0.63 mg [id number] PRN Administration Shortness of Breath Methylprednisolone 20 mg 12/11/17 10:11 12/12/17 21:40 Solu-Medrol IVP 20 mg Q12 IVETTE Administration Morphine Sulfate 1 mg 12/13/17 08:02 Morphine IVP Q4H PRN Agitation Pantoprazole Sodium 20 mg 12/12/17 10:39 Protonix Inj IVP DAILY [facility] Vitamin A 1 ea 12/13/17 08:31 Vitamin A & D Oint Ud Foilpak TOP BID PRN Dry mouth - Patient Studies Lab Studies: Microbiology Studies 12/11/17 09:20 Urine Culture - Final Urine,Acevedo No Growth (<1,000 CFU/ML) Lab Studies 12/13/17 12/13/17 12/12/17 Range/Units 05:50 05:50 22:23 WBC 9.3 (4.5-11.0) 10^3/ul RBC 3.79 (3.5-6.1) 10^6/uL Hgb 10.4 L (12.0-16.0) g/dL Hct 35.5 L (36.0-48.0) % MCV 93.7 (80.0-105.0) fl MCH 27.4 (25.0-35.0) pg MCHC 29.3 L (31.0-37.0) g/dl RDW 14.7 H (11.5-14.5) % Plt Count 285 (120.0-450.0) 10^3/uL MPV 9.9 (7.0-11.0) fl Gran % 94.9 H (50.0-68.0) % Lymph % (Auto) 2.8 L (22.0-35.0) % [place] % (Auto) 2.2 (1.0-6.0) % Eos % (Auto) 0.0 L (1.5-5.0) % Baso % (Auto) 0.1 (0.0-3.0) % Gran # 8.86 H (1.4-6.5) Lymph # (Auto) 0.3 L (1.2-3.4) [place] # (Auto) 0.2 (0.1-0.6) Eos # (Auto) 0.0 (0.0-0.7) Baso # (Auto) 0.01 (0.0-2.0) K/mm3 Neutrophils % (Manual) 93 H (50.0-70.0) % Lymphocytes % (Manual) 5 L (22.0-35.0) % Monocytes % (Manual) 2 (1.0-6.0) % Toxic Granulation Slight Platelet Evaluation Normal (NORMAL) Hypochromasia Slight Anisocytosis (manual) Slight Ovalocytes Slight Sodium 156 H* (132-148) mmol/L Potassium 4.7 (3.6-5.0) mmol/L Chloride 113 H (98-107) mmol/L Carbon Dioxide 35 H (21-33) mmol/L Anion Gap 14 (10-20) BUN 70 H (7-21) mg/dL Creatinine 1.3 H (0.7-1.2) mg/dl Est GFR ( Amer) 47 Est GFR (Non-Af Amer) 39 POC Glucose (mg/dL) 142 H (65-110) mg/dL Random Glucose 130 H (70-110) mg/dL Calcium 9.3 (8.4-10.5) mg/dL 12/12/17 Range/Units 16:38 WBC (4.5-11.0) 10^3/ul RBC (3.5-6.1) 10^6/uL Hgb (12.0-16.0) g/dL Hct (36.0-48.0) % MCV (80.0-105.0) fl MCH (25.0-35.0) pg MCHC (31.0-37.0) g/dl RDW (11.5-14.5) % Plt Count (120.0-450.0) 10^3/uL MPV (7.0-11.0) fl Gran % (50.0-68.0) % Lymph % (Auto) (22.0-35.0) % [place] % (Auto) (1.0-6.0) % Eos % (Auto) (1.5-5.0) % Baso % (Auto) (0.0-3.0) % Gran # (1.4-6.5) Lymph # (Auto) (1.2-3.4) [place] # (Auto) (0.1-0.6) Eos # (Auto) (0.0-0.7) Baso # (Auto) (0.0-2.0) K/mm3 Neutrophils % (Manual) (50.0-70.0) % Lymphocytes % (Manual) (22.0-35.0) % Monocytes % (Manual) (1.0-6.0) % Toxic Granulation Platelet Evaluation (NORMAL) Hypochromasia Anisocytosis (manual) Ovalocytes Sodium (132-148) mmol/L Potassium (3.6-5.0) mmol/L Chloride (98-107) mmol/L Carbon Dioxide (21-33) mmol/L Anion Gap (10-20) BUN (7-21) mg/dL Creatinine (0.7-1.2) mg/dl Est GFR ( Amer) Est GFR (Non-Af Amer) POC Glucose (mg/dL) 154 H (65-110) mg/dL Random Glucose (70-110) mg/dL Calcium (8.4-10.5) mg/dL Laboratory Results - last 24 hr 12/12/17 12/12/17 12/13/17 16:38 22:23 05:50 WBC RBC Hgb Hct MCV MCH MCHC RDW Plt Count MPV Gran % Lymph % (Auto) [place] % (Auto) Eos % (Auto) Baso % (Auto) Gran # Lymph # (Auto) [place] # (Auto) Eos # (Auto) Baso # (Auto) Neutrophils % (Manual) Lymphocytes % (Manual) Monocytes % (Manual) Toxic Granulation Platelet Evaluation Hypochromasia Anisocytosis (manual) Ovalocytes Sodium 156 H* Potassium 4.7 Chloride 113 H Carbon Dioxide 35 H Anion Gap 14 BUN 70 H Creatinine 1.3 H Est GFR ( Amer) 47 Est GFR (Non-Af Amer) 39 POC Glucose (mg/dL) 154 H 142 H Random Glucose 130 H Calcium 9.3 12/13/17 05:50 WBC 9.3 RBC 3.79 Hgb 10.4 L Hct 35.5 L MCV 93.7 MCH 27.4 MCHC 29.3 L RDW 14.7 H Plt Count 285 MPV 9.9 Gran % 94.9 H Lymph % (Auto) 2.8 L [place] % (Auto) 2.2 Eos % (Auto) 0.0 L Baso % (Auto) 0.1 Gran # 8.86 H Lymph # (Auto) 0.3 L [place] # (Auto) 0.2 Eos # (Auto) 0.0 Baso # (Auto) 0.01 Neutrophils % (Manual) 93 H Lymphocytes % (Manual) 5 L Monocytes % (Manual) 2 Toxic Granulation Slight Platelet Evaluation Normal Hypochromasia Slight Anisocytosis (manual) Slight Ovalocytes Slight Sodium Potassium Chloride Carbon Dioxide Anion Gap BUN Creatinine Est GFR ( Amer) Est GFR (Non-Af Amer) POC Glucose (mg/dL) Random Glucose Calcium Fingerstick Blood Sugar Results: 142 Results Reviewed to Date: Yes Critical Care Progress Note - Extremities/Vascular Does the Patient have a Central Venous Catheter?: No Does the Patient need a Central Venous Catheter?: No Does the Patient have a Acevedo Catheter?: Yes Does the Patient need a Acevedo Catheter?: Yes Catheter Insertion Criteria: Patient requires prolonged immobilization - Prophylaxis GI Prophylaxis GI: PPI - Prophylaxis DVT Prophylaxis DVT: Heparin SQ - Nutrition Nutrition: Nutrition Category Date Time Status Dysphagia/Modified Consistency Diet [DIET] Diets 12/10/17 Lunch Ordered Assessment/Plan - Assessment and Plan (Free Text) Assessment: Patient is an 87 y/o F with PMHx of COPD induced pulmonary fibrosis, 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 Plan: Neuro: Acute delirium likely due to multiple comorbidites, and icu. - will re-orient patient, and reset circadian rhythm. Pulm: Hypercapneic and hypoxemic respiratory distress likely due to copd exacerbation complicated with transient flash pulmonary edema. Patient saturating better on high flow Currently DNI/DNR Continue bronchodilators, and tapering solumedrol Patient has severe copd induced pulmonary fibrosis, family considering hospice care. Cardio: New onset a.fib with RVR- HR controlled Episodes of bradycardia, thus Cardizem po on hold. On ASA and heparin drip. Systolic CHF with LVEF of 35% with mild pericardial effusion- lasix on hold due to worsening in hypernatremia. ID: Afebrile, leukocytosis (resolved) CXR showed right lower lobe infiltrate with possible pneumonia and a right pleural effusion Continue Vanc and Cefepime Urine culture showed Staph. Aureus, likely contamination. GI: Continue with dysphagia diet as tolerated. Ppi for gi prophylaxis. Heme: H/H stable, at baseline, will continue to monitor Nephro: Hypernatremia most likely secondary to dehydration -started on D5W@75 cc /hr. Monitor I&Os. Endo: Maintain euglycemia (140 - 180) DVT ppx: Heparin drip for afib. Dispo: possible hospice care, pending family signature. Patient seen, examined and case discussed with the attending. - Date & Time Date: 12/13/17 Time: 13:05 <Garfield Tavera - Last Filed: 12/14/17 09:12> CCU Objective - Vital Signs / Intake & Output Vital Signs (Last 4 hours): Vital Signs Pulse Resp BP Pulse Ox 12/14/17 08:10 92 H 15 91 L 12/14/17 08:00 88 18 115/40 L 91 L 12/14/17 07:50 89 17 90 L 12/14/17 07:40 83 16 90 L 12/14/17 07:30 83 18 89 L 12/14/17 07:20 83 18 88 L 12/14/17 07:10 80 18 90 L 12/14/17 07:00 81 18 120/59 L 88 L 12/14/17 06:52 20 12/14/17 06:50 94 H 88 L 12/14/17 06:40 92 H 19 78 L 12/14/17 06:30 89 19 87 L 12/14/17 06:20 80 17 87 L 12/14/17 06:10 77 20 86 L 12/14/17 06:00 74 14 97/75 L 89 L 12/14/17 05:50 75 15 87 L 12/14/17 05:40 92 H 16 88 L 12/14/17 05:30 105 H 18 88 L 12/14/17 05:20 94 H 17 89 L Intake and Output (Last 8hrs): Intake & Output 12/13/17 12/14/17 12/14/17 22:59 06:59 14:59 Intake Total 250 Balance 250 Weight 93 lb Intake: IV 250 - Medications Active Medications: Active Medications Generic Name Dose Route Start Last Admin Trade Name Freq PRN Reason Stop Dose Admin Arformoterol Tartrate 15 mcg 12/08/17 20:00 12/14/17 07:15 Brovana IH 15 mcg [id number] IVETTE Administration Aspirin 300 mg 12/09/17 10:00 12/13/17 11:20 Aspirin Supp RC 300 mg DAILY IVETTE Administration Budesonide 0.25 mg 12/08/17 20:00 12/14/17 07:15 Pulmicort Respules IH 0.25 mg [id number] IVETTE Administration Diltiazem HCl 30 mg 12/12/17 09:09 12/13/17 22:17 Cardizem PO 30 mg QID IVETTE Administration Heparin Sodium/Sodium Chloride 25,000 units in 250 mls @ 8.001 mls/hr 11:21 12/14/17 08:47 Heparin 63349 Units/250ml 1/2 Normal Saline IV 15 units/kg/hr .Q24H PRN 6.668 mls/hr ADJUST RATE PER PROTOCOL Administration Protocol 18 UNITS/KG/HR Vancomycin HCl 500 mg in 100 mls @ 200 mls/hr 12/11/17 10:00 12/13/17 22:00 Vancomycin 500mg In Ns IVPB 200 mls/hr Q12 IVETTE Administration Dextrose 1,000 mls @ 75 mls/hr 12/13/17 09:45 12/13/17 10:43 Dextrose 5% In Water 1000 Ml IV 75 mls/hr .[id number] IVETTE Administration Insulin Human Regular 0 units 12/08/17 16:30 12/14/17 08:01 Humulin R Low SC Not Given ACHS IVETTE Protocol Levalbuterol HCl 0.63 mg 12/08/17 16:08 12/10/17 13:58 Xopenex IH 0.63 mg [id number] PRN Administration Shortness of Breath Methylprednisolone 20 mg 12/11/17 10:11 12/13/17 22:00 Solu-Medrol IVP 20 mg Q12 IVETTE Administration Morphine Sulfate 1 mg 12/13/17 08:02 12/13/17 22:19 Morphine IVP 1 mg Q4H PRN Administration Agitation Pantoprazole Sodium 20 mg 02/21/18 10:39 12/13/17 12:56 Protonix Inj IVP 20 mg DAILY IVETTE Administration Vitamin A 1 ea 12/13/17 08:31 12/13/17 17:45 Vitamin A & D Oint Ud Foilpak TOP 1 ea BID PRN Administration Dry mouth - Patient Studies Lab Studies: Lab Studies 12/14/17 12/14/17 12/14/17 Range/Units 07:44 06:30 06:30 WBC 11.8 H D (4.5-11.0) 10^3/ul RBC 4.02 (3.5-6.1) 10^6/uL Hgb 11.0 L (12.0-16.0) g/dL Hct 38.6 (36.0-48.0) % MCV 96.0 (80.0-105.0) fl MCH 27.4 (25.0-35.0) pg MCHC 28.5 L (31.0-37.0) g/dl RDW 14.7 H (11.5-14.5) % Plt Count 273 (120.0-450.0) 10^3/uL MPV 10.2 (7.0-11.0) fl Gran % 96.5 H (50.0-68.0) % Lymph % (Auto) 1.7 L (22.0-35.0) % [place] % (Auto) 1.7 (1.0-6.0) % Eos % (Auto) 0.0 L (1.5-5.0) % Baso % (Auto) 0.1 (0.0-3.0) % Gran # 11.36 H (1.4-6.5) Lymph # (Auto) 0.2 L (1.2-3.4) [place] # (Auto) 0.2 (0.1-0.6) Eos # (Auto) 0.0 (0.0-0.7) Baso # (Auto) 0.01 (0.0-2.0) K/mm3 APTT 93.3 H (25.1-36.5) Seconds Sodium (132-148) mmol/L Potassium (3.6-5.0) mmol/L Chloride (98-107) mmol/L Carbon Dioxide (21-33) mmol/L Anion Gap (10-20) BUN (7-21) mg/dL Creatinine (0.7-1.2) mg/dl Est GFR ( Amer) Est GFR (Non-Af Amer) POC Glucose (mg/dL) 205 H (65-110) mg/dL Random Glucose (70-110) mg/dL Calcium (8.4-10.5) mg/dL 12/14/17 12/13/17 12/13/17 Range/Units 06:30 22:01 12:24 WBC (4.5-11.0) 10^3/ul RBC (3.5-6.1) 10^6/uL Hgb (12.0-16.0) g/dL Hct (36.0-48.0) % MCV (80.0-105.0) fl MCH (25.0-35.0) pg MCHC (31.0-37.0) g/dl RDW (11.5-14.5) % Plt Count (120.0-450.0) 10^3/uL MPV (7.0-11.0) fl Gran % (50.0-68.0) % Lymph % (Auto) (22.0-35.0) % [place] % (Auto) (1.0-6.0) % Eos % (Auto) (1.5-5.0) % Baso % (Auto) (0.0-3.0) % Gran # (1.4-6.5) Lymph # (Auto) (1.2-3.4) [place] # (Auto) (0.1-0.6) Eos # (Auto) (0.0-0.7) Baso # (Auto) (0.0-2.0) K/mm3 APTT (25.1-36.5) Seconds Sodium 150 H (132-148) mmol/L Potassium 5.0 (3.6-5.0) mmol/L Chloride 110 H (98-107) mmol/L Carbon Dioxide 31 (21-33) mmol/L Anion Gap 15 (10-20) BUN 82 H (7-21) mg/dL Creatinine 1.4 H (0.7-1.2) mg/dl Est GFR ( Amer) 43 Est GFR (Non-Af Amer) 36 POC Glucose (mg/dL) 218 H 199 H (65-110) mg/dL Random Glucose 187 H (70-110) mg/dL Calcium 8.7 (8.4-10.5) mg/dL Laboratory Results - last 24 hr 12/13/17 12/13/17 12/14/17 12:24 22:01 06:30 WBC RBC Hgb Hct MCV MCH MCHC RDW Plt Count MPV Gran % Lymph % (Auto) [place] % (Auto) Eos % (Auto) Baso % (Auto) Gran # Lymph # (Auto) [place] # (Auto) Eos # (Auto) Baso # (Auto) APTT Sodium 150 H Potassium 5.0 Chloride 110 H Carbon Dioxide 31 Anion Gap 15 BUN 82 H Creatinine 1.4 H Est GFR ( Amer) 43 Est GFR (Non-Af Amer) 36 POC Glucose (mg/dL) 199 H 218 H Random Glucose 187 H Calcium 8.7 12/14/17 12/14/17 12/14/17 06:30 06:30 07:44 WBC 11.8 H D RBC 4.02 Hgb 11.0 L Hct 38.6 MCV 96.0 MCH 27.4 MCHC 28.5 L RDW 14.7 H Plt Count 273 MPV 10.2 Gran % 96.5 H Lymph % (Auto) 1.7 L [place] % (Auto) 1.7 Eos % (Auto) 0.0 L Baso % (Auto) 0.1 Gran # 11.36 H Lymph # (Auto) 0.2 L [place] # (Auto) 0.2 Eos # (Auto) 0.0 Baso # (Auto) 0.01 APTT 93.3 H Sodium Potassium Chloride Carbon Dioxide Anion Gap BUN Creatinine Est GFR ( Amer) Est GFR (Non-Af Amer) POC Glucose (mg/dL) 205 H Random Glucose Calcium Critical Care Progress Note - Nutrition Nutrition: Nutrition Category Date Time Status Dysphagia/Modified Consistency Diet [DIET] Diets 12/10/17 Lunch Ordered Attending/Attestation - Attestation I have personally seen and examined this patient.: Yes I have fully participated in the care of the patient.: Yes I have reviewed all pertinent clinical information: Yes
--- NOTE | 2017-12-13 10:21 | CP.PCM.CON ---
History of Present Illness - History of Present Illness History of Present Illness: Palliative consult requested by Dr Suma Pena Reason: Gaols of care/ hospice discussion 87 year old female with history of hypernatremia, SIADH, urinary retention , anemia who was in [place] for rehab when she developed shortness of breath and atrial fibrillation with RVR. Chest x ray showed right lower lobe infiltrate, small right pleural effusion. Wbc 12.6, H Flu negative She was transferred to ICU for further medical management. PMHX: [place], CVA, angina, SIADH, iron deficiency anemia, urinary retention, gout, right hip fx. Social History Never smoker, no alcohol or drug use.Was living independently until prior admission. Family History: Non contirbasuoty Advance Care Planning: The patient is DNR/DNI. Her niece Monet Schwarz is her POA. Review of Systems: per HPI, patient is alerted, unable to do comprehensive assessment Past Patient History - Infectious Disease Hx of Infectious Diseases: None - Tetanus Immunizations Tetanus Immunization: Unknown - Past Social History Smoking Status: Never Smoked - CARDIAC Hx Cardiac Disorders: Yes - PULMONARY Hx Chronic Obstructive Pulmonary Disease (COPD): Yes - NEUROLOGICAL Hx Neurological Disorder: No - HEENT Hx Glaucoma: Yes - RENAL Hx Chronic Kidney Disease: No - ENDOCRINE/METABOLIC Hx Endocrine Disorders: No - HEMATOLOGICAL/ONCOLOGICAL Hx Blood Disorders: No - INTEGUMENTARY Hx Dermatological Problems: No - MUSCULOSKELETAL/RHEUMATOLOGICAL Hx Falls: Yes - GASTROINTESTINAL Hx Gastrointestinal Disorders: No Other/Comment: colon sx - GENITOURINARY/GYNECOLOGICAL Hx Genitourinary Disorders: No - PSYCHIATRIC Hx Substance Use: No - SURGICAL HISTORY Other/Comment: colon sx - ANESTHESIA Hx Anesthesia Reactions: No Hx Malignant Hyperthermia: No Meds Allergies/Adverse Reactions: Allergies Allergy/AdvReac Type Severity Reaction Status Date / Time No Known Allergies Allergy Verified 12/05/17 03:06 - Medications Medications: Current Medications Arformoterol Tartrate (Brovana) 15 mcg IH [id number] [facility] Last Admin: 12/13/17 07:23 Dose: 15 mcg Aspirin (Aspirin Supp) 300 mg RC DAILY [facility] Last Admin: 12/12/17 10:27 Dose: 300 mg Budesonide (Pulmicort Respules) 0.25 mg IH [id number] [facility] Last Admin: 12/13/17 07:23 Dose: 0.25 mg Diltiazem HCl (Cardizem) 30 mg PO QID [facility] Last Admin: 12/12/17 21:19 Dose: 30 mg Heparin Sodium/Sodium Chloride (Heparin 41446 Units/250ml 1/2 Normal Saline) 25 ,000 units in 250 mls @ 8.001 mls/hr IV .Q24H PRN; Protocol; 18 UNITS/KG/HR PRN Reason: ADJUST RATE PER PROTOCOL Last Admin: 12/12/17 22:07 Dose: 15 units/kg/hr, 6.668 mls/hr Cefepime HCl (Maxipime 1gm) 1 gm in 100 mls @ 100 mls/hr IVPB DAILY [facility] PRN Reason: Protocol Stop: 12/13/17 22:01 Last Admin: 12/12/17 10:32 Dose: 100 mls/hr Vancomycin HCl (Vancomycin 500mg In Ns) 500 mg in 100 mls @ 200 mls/hr IVPB Q12 [facility] Last Admin: 12/12/17 21:47 Dose: 200 mls/hr Dextrose (Dextrose 5% In Water 1000 Ml) 1,000 mls @ 75 mls/hr IV .[id number] [facility] Insulin Human Regular (Humulin R Low) 0 units SC ACHS [facility] PRN Reason: Protocol Last Admin: 12/12/17 22:28 Dose: Not Given Levalbuterol HCl (Xopenex) 0.63 mg IH [id number] PRN PRN Reason: Shortness of Breath Last Admin: 12/10/17 13:58 Dose: 0.63 mg Methylprednisolone (Solu-Medrol) 20 mg IVP Q12 [facility] Last Admin: 12/12/17 21:40 Dose: 20 mg Morphine Sulfate (Morphine) 1 mg IVP Q4H PRN PRN Reason: Agitation Pantoprazole Sodium (Protonix Inj) 20 mg IVP DAILY [facility] Vitamin A (Vitamin A & D Oint Ud Foilpak) 1 ea TOP BID PRN PRN Reason: Dry mouth Physical Exam - Constitutional Appears: Cachectic, Chronically Ill - Head Exam Head Exam: NORMAL INSPECTION - Eye Exam Eye Exam: Normal appearance, PERRL - ENT Exam ENT Exam: Mucous Membranes Moist, Normal Oropharynx - Respiratory Exam Respiratory Exam: Accessory Muscle Use, Decreased Breath Sounds, Rhonchi - Cardiovascular Exam Cardiovascular Exam: Tachycardia, Irregular Rhythm, +S1, +S2 - GI/Abdominal Exam GI & Abdominal Exam: Hypoactive Bowel Sounds, Soft - Back Exam Back exam: NORMAL INSPECTION - Neurological Exam Neurological exam: Altered - Skin Skin Exam: Dry, Pallor - Additional Findings Additional findings: Palliative performance scale rating 20% Results - Vital Signs Recent Vital Signs: Last Vital Signs Temp 95.5 F L 12/13/17 09:20 Pulse 56 L 12/13/17 09:20 Resp 32 H 12/13/17 10:02 BP 108/45 L 12/13/17 09:00 Pulse Ox 95 12/13/17 09:20 - Labs Result Diagrams: 12/13/17 05:50 12/13/17 05:50 Labs: Laboratory Results - last 24 hr 12/12/17 12/12/17 12/13/17 16:38 22:23 05:50 WBC RBC Hgb Hct MCV MCH MCHC RDW Plt Count MPV Gran % Lymph % (Auto) [place] % (Auto) Eos % (Auto) Baso % (Auto) Gran # Lymph # (Auto) [place] # (Auto) Eos # (Auto) Baso # (Auto) Neutrophils % (Manual) Lymphocytes % (Manual) Monocytes % (Manual) Toxic Granulation Platelet Evaluation Hypochromasia Anisocytosis (manual) Ovalocytes Sodium 156 H* Potassium 4.7 Chloride 113 H Carbon Dioxide 35 H Anion Gap 14 BUN 70 H Creatinine 1.3 H Est GFR ( Amer) 47 Est GFR (Non-Af Amer) 39 POC Glucose (mg/dL) 154 H 142 H Random Glucose 130 H Calcium 9.3 12/13/17 05:50 WBC 9.3 RBC 3.79 Hgb 10.4 L Hct 35.5 L MCV 93.7 MCH 27.4 MCHC 29.3 L RDW 14.7 H Plt Count 285 MPV 9.9 Gran % 94.9 H Lymph % (Auto) 2.8 L [place] % (Auto) 2.2 Eos % (Auto) 0.0 L Baso % (Auto) 0.1 Gran # 8.86 H Lymph # (Auto) 0.3 L [place] # (Auto) 0.2 Eos # (Auto) 0.0 Baso # (Auto) 0.01 Neutrophils % (Manual) 93 H Lymphocytes % (Manual) 5 L Monocytes % (Manual) 2 Toxic Granulation Slight Platelet Evaluation Normal Hypochromasia Slight Anisocytosis (manual) Slight Ovalocytes Slight Sodium Potassium Chloride Carbon Dioxide Anion Gap BUN Creatinine Est GFR ( Amer) Est GFR (Non-Af Amer) POC Glucose (mg/dL) Random Glucose Calcium Assessment & Plan - Assessment and Plan (Free Text) Assessment: 87 year old female with history of anemia, CVA, admitted with shortness of breath,pulmonary fibrosis, hypernatremia, SIADH, pneumonia, atrial fib with RVR pneumonia and failure to thrive. I spoke with trevonece/POKuldip OrtegaMonet Karishma via phone. Lengthy discussion regarding patients medical condition and goals of care ensued. Monet recognizes that her aunts health is declining. As per patients Advanced Directive, she does not want extraordinary measures to prolong life. DNR/DNI already in place. Lian does not want PEG tube. Options for LTAC vs hospice care explored. Detailed explanation of each service provided to lian. All questions are answered. Lian wants to go in direction of hospice care.Hospice pshilaosphy and goals of symptom management reviewed. Lian has agreed to meet with hospice patient care secretary this evening. Psychosocial support provided. Tie spent in goals of care/ hospice discussion and end of life counseling, 45 minutes. Plan: Hospice evaluation for GIP services Palliative support in establishing goals of care
[2017-12-13] MEDS: Insulin Reg-LOW-Coverage SC SCH ×4 (10:44→22:18)
[2017-12-13] MEDS: MethylPREDNISolone 40 mg Vial IVP SCH ×2 (11:17→22:00)
--- NOTE | 2017-12-13 11:18 | PN ---
DATE: 12/13/2017 SUBJECTIVE: The patient is seen and examined at bedside. She appears to be comfortable and on 80%/6 L per minute of high-flow oxygen. She is not in respiratory or otherwise distress. PHYSICAL EXAMINATION: VITAL SIGNS: Heart rate 59, oxygen saturation 93%, respiratory rate 23, temperature 95.5, blood pressure 104/46. ENT: Head and neck atraumatic. LUNGS: Few crackles bilaterally. HEART: Regular rate and rhythm. S1, S2 normal. ABDOMEN: Soft, nontender and nondistended. MUSCULOSKELETAL: Trace bilateral pedal and ankle edema. NEURO: The patient was seen moving all extremities spontaneously. SKIN: Moist. PSYCH: The patient is poorly communicative. LABORATORY DATA: WBC 9.3, hemoglobin 10.4, platelet count 285. Sodium 156, potassium 4.7, chloride 113, carbon dioxide 35, BUN 70, creatinine 1.3 up from 1.0, glucose 113. MEDICATIONS: Brovana, aspirin, Pulmicort, cefepime, D5 at 75 mL/hour, Cardizem 30 mg p.o. q.i.d., heparin drip, Xopenex p.r.n., Solu-Medrol 20 mg IV q. 12, Protonix, morphine p.r.n., vancomycin, vitamin A and D topical. ASSESSMENT AND PLAN: This is an 87-year-old lady with severe chronic obstructive pulmonary disease and pulmonary fibrosis requiring high FIO2. I would continue with bronchodilators, steroids, antibiotics. Conservative fluid and oxygen management. Head of bed elevated at >35 degrees. Protonix for gastrointestinal prophylaxis. The patient is on therapeutic anticoagulation for atrial fibrillation. At present time, heart rate controlled. The patient's do not resuscitate/do not intubate status noticed. At present time, Palliative Care is in contact with family to decide whether they want to proceed with comfort care only or with aggressive supportive measures at present time. We will continue with euglycemia, normothermia and oxygen saturation more than 90%. ccm time 40 min Garfield Tavera MD MTDD
[2017-12-13] MEDS: Vitamins A & D Oint UD Foilpak TOP PRN ×2 (11:20→17:45)
[2017-12-13] MEDS: Cefepime 1gm in NS 100ml 1 GM/100 ML BAG IVPB SCH (12:28)
[2017-12-13] MEDS: Vancomycin 500mg in NS 500 MG/100 ML BAG IVPB SCH ×2 (12:29→22:00)
--- NOTE | 2017-12-13 23:58 | PN ---
DATE: 12/13/2017 INTENSIVE CARE PROGRESS NOTE SUBJECTIVE: This 87-year-old female was examined in bed 6, ICU. This case was reviewed in detail with family, ICU nursing, case management and Trista Tello, registered nurse from palliative care hospice. The case was also reviewed with social service. The patient at present is a DNR/DNI. She remains extremely weak and deconditioned. She is now on high-flow O2. She is verbally nonresponsive and staring off having been recently sedated for multiple medical problems including recent myocardial infarction, congestive heart failure, right lower lung pneumonia and respiratory insufficiency and chronic obstructive pulmonary disease. As discussed with the seo manager earlier this morning, because of hypernatremia secondary to IV diuretics and poor p.o. fluid intake, she is hypernatremic and now being treated with gentle IV D5W fluids. The patient and power of deputy county attorney, her niece, has agreed to DNR/DNI, and after a consultation with palliative care, is now in agreement to in-hospital hospice placement. There have been no reports of fever, chills, hematemesis or melena. 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 PHYSICAL EXAMINATION: VITAL SIGNS: Show temperature 95.0, respirations 20, pulse 61, blood pressure 120/60, pulse ox was 90%. Urine output thus far today is 400 mL. HEENT: Head: Normocephalic, atraumatic. Eyes: No icterus. Ears: Clear. Throat: Dry. NECK: Supple. HEART: Irregular S1 and S2. LUNGS: With occasional rhonchi at right base. ABDOMEN: Soft. EXTREMITIES: No edema. SKIN: Without rash. NEUROLOGICAL: Sedated. VASCULAR: Legs warm to touch. PSYCHOLOGICAL: Could not be assessed. LABORATORY DATA: White count 9300, hemoglobin 10.4, hematocrit 35.5, platelets 285,000. PTT 67.7. Sodium 156, K 4.7, chloride 113, bicarb 35, BUN 70, creatinine 1.3, random blood sugar was 130. Original influenza A and B serology negative. Chest x-ray was reviewed, it is consistent with chronic obstructive pulmonary disease, bilateral small pleural effusions and improvement in CHF and improvement in right lower lung infiltrate. IMPRESSION: An 87-year-old female status post a subendocardial myocardial infarction, new onset atrial fibrillation, chronic obstructive pulmonary disease, right lower lung pneumonia, status post congestive heart failure, history of chronic glaucoma, now with failure to thrive, and DNR/DNI status having been outlined and the patient is being readied for probable hospice. PLAN: Will be, once the patient does agree to hospice, to stop all aggressive medical support. She will be given comfort care measures, comfort foods and pulmonary therapy for respiratory insufficiency including high-flow O2 and pulmonary toiletry with Xopenex and Brovana and Pulmicort inhalational agents. All additional medications will stop. She will be given comfort measures only, and allowed to peacefully. Greater than 35 minutes was spent in the care management, review of labs, x-rays and discussion with consultants including palliative care for this patient today. Overall prognosis is guarded. Rossy Pena MD MTDD
[2017-12-14 06:57] LABS: BASO # 0.01 K/mm3 (0.0-2.0); BASO % 0.1 % (0.0-3.0); GRAN # 11.36 (1.4-6.5); GRAN % 96.5 % (50.0-68.0); LYMPH # 0.2 (1.2-3.4); LYMPH % 1.7 % (22.0-35.0); MEAN CORPUSCULAR HEMOGLOBIN 27.4 pg (25.0-35.0); MEAN CORPUSCULAR HGB CONC 28.5 g/dl (31.0-37.0); MEAN PLATELET VOLUME 10.2 fl (7.0-11.0); MONO # 0.2 (0.1-0.6); MONO % 1.7 % (1.0-6.0); RBC 4.02 10^6/uL (3.5-6.1); RED CELL DISTRIBUTION WIDTH 14.7 % (11.5-14.5); WHITE BLOOD COUNT 11.8 10^3/ul (4.5-11.0)
[2017-12-14] MEDS: Budesonide 0.25 mg/2 ml Inhal Susp UD IH SCH (07:15)
[2017-12-14] MEDS: Arformoterol 15 mcg/2 ml Inh Sol IH SCH (07:15)
[2017-12-14 07:21] LABS: CALCIUM 8.7 mg/dL (8.4-10.5)
[2017-12-14] MEDS: Insulin Reg-LOW-Coverage SC SCH ×2 (08:01→11:59)
[2017-12-14] MEDS: Heparin25000 units/250ml 1/2NS 25,000 UNITS/250 ML BAG IV PRN (08:47)
[2017-12-14] MEDS: Vancomycin 500mg in NS 500 MG/100 ML BAG IVPB SCH (09:40)
[2017-12-14] MEDS: MethylPREDNISolone 40 mg Vial IVP SCH (09:41)
--- NOTE | 2017-12-14 09:56 | CP.PCM.PN ---
Subjective - Date & Time of Evaluation Date of Evaluation: 12/14/17 Time of Evaluation: 09:00 - Subjective Subjective: Weak, lethargic,high flow O2. Objective - Vital Signs/Intake and Output Vital Signs (last 24 hours): Temp Pulse Resp BP Pulse Ox 99 F 92 H 15 115/40 L 91 L 12/14/17 04:00 12/14/17 08:10 12/14/17 08:10 12/14/17 08:00 12/14/17 08:10 Intake and Output: 12/14/17 12/14/17 06:59 18:59 Intake Total 250 Balance 250 - Medications Medications: Current Medications Arformoterol Tartrate (Brovana) 15 mcg IH [id number] [facility] Last Admin: 12/14/17 07:15 Dose: 15 mcg Aspirin (Aspirin Supp) 300 mg RC DAILY [facility] Last Admin: 12/14/17 09:41 Dose: 300 mg Budesonide (Pulmicort Respules) 0.25 mg IH [id number] [facility] Last Admin: 12/14/17 07:15 Dose: 0.25 mg Diltiazem HCl (Cardizem) 30 mg PO QID [facility] Last Admin: 12/13/17 22:17 Dose: 30 mg Heparin Sodium/Sodium Chloride (Heparin 71097 Units/250ml 1/2 Normal Saline) 25 ,000 units in 250 mls @ 8.001 mls/hr IV .Q24H PRN; Protocol; 18 UNITS/KG/HR PRN Reason: ADJUST RATE PER PROTOCOL Last Admin: 12/14/17 08:47 Dose: 15 units/kg/hr, 6.668 mls/hr Vancomycin HCl (Vancomycin 500mg In Ns) 500 mg in 100 mls @ 200 mls/hr IVPB Q12 [facility] Last Admin: 12/14/17 09:40 Dose: 200 mls/hr Dextrose (Dextrose 5% In Water 1000 Ml) 1,000 mls @ 75 mls/hr IV .[id number] [facility] Last Admin: 12/14/17 09:37 Dose: 75 mls/hr Insulin Human Regular (Humulin R Low) 0 units SC ACHS [facility] PRN Reason: Protocol Last Admin: 12/14/17 08:01 Dose: Not Given Levalbuterol HCl (Xopenex) 0.63 mg IH [id number] PRN PRN Reason: Shortness of Breath Last Admin: 12/10/17 13:58 Dose: 0.63 mg Methylprednisolone (Solu-Medrol) 20 mg IVP Q12 [facility] Last Admin: 12/14/17 09:41 Dose: 20 mg Morphine Sulfate (Morphine) 1 mg IVP Q4H PRN PRN Reason: Agitation Last Admin: 12/13/17 22:19 Dose: 1 mg Pantoprazole Sodium (Protonix Inj) 20 mg IVP DAILY [facility] Last Admin: 12/14/17 09:41 Dose: 20 mg Vitamin A (Vitamin A & D Oint Ud Foilpak) 1 ea TOP BID PRN PRN Reason: Dry mouth Last Admin: 12/13/17 17:45 Dose: 1 ea - Labs Labs: 12/14/17 06:30 12/14/17 06:30 PT 12.9 SECONDS (9.4-12.5) H 12/08/17 11:05 INR 1.12 (0.93-1.08) H 12/08/17 11:05 APTT 93.3 Seconds (25.1-36.5) H 12/14/17 06:30 - Constitutional Appears: Chronically Ill - Eye Exam Eye Exam: Normal appearance, PERRL - ENT Exam ENT Exam: Mucous Membranes Moist - Neck Exam Neck Exam: Normal Inspection - Respiratory Exam Respiratory Exam: Accessory Muscle Use, Decreased Breath Sounds - Cardiovascular Exam Cardiovascular Exam: Irregular Rhythm, +S1, +S2 - GI/Abdominal Exam GI & Abdominal Exam: Soft, Diminished Bowel Sounds - Extremities Exam Extremities Exam: Pedal Edema - Neurological Exam Additional comments: somnolent - Skin Skin Exam: Dry, Pallor Assessment and Plan - Assessment and Plan (Free Text) Assessment: 87 yeta old female with history of COPD, who is admitted with IL, RLL pneumonia , Af fib with RVR and failure to thrive. Patients niece, Monet was scheduled to meet with network liaison last evening. Meeting did not take place. Liaison spoke with Monet via phone instead. Monet was still conflicted about signing on to hospice care. I spoke with Monet again this morning. Review of patients advanced directive. Nieces concerns were addressed. Monet has agreed to come in this afternoon to sign on to hospices GIP services. Monet and I met with [facility] network liaison. Extensive discussion regarding hospice services.All questions answered. Niece is agreeable to hospice services , consent signed. Psychosocial support. Goals of care ,end of life counseling, 45 minutes Plan: Discharge and admit to med surg under [facility] services.
--- NOTE | 2017-12-14 11:07 | CP.CCUPN ---
<Emily House - Last Filed: 12/14/17 11:37> CCU Subjective - Physician Review Subjective (Free Text): 12/14/17 9:37 Patient remains weak and cachetic. No acute overnight events. On high flow oxygen. Niece and hospice outreach representative was unable to coordinate with each other. Critical Care Time Spent (in minutes): 45 CCU Objective - Vital Signs / Intake & Output Vital Signs (Last 4 hours): Vital Signs Temp Pulse Resp BP Pulse Ox 12/14/17 11:00 83 31 H 107/46 L 89 L 12/14/17 10:50 100 H 30 H 89 L 12/14/17 10:40 83 24 89 L 12/14/17 10:30 96 H 26 H 90 L 12/14/17 10:20 91 H 18 90 L 12/14/17 10:10 93 H 19 88 L 12/14/17 10:00 88 18 103/40 L 87 L 12/14/17 09:57 20 12/14/17 09:50 74.3 F L 89 17 87 L 12/14/17 09:45 91.9 F L 82 88 L 12/14/17 09:40 88 18 89 L 12/14/17 09:30 86 19 90 L 12/14/17 09:20 97 H 15 91 L 12/14/17 09:10 92 H 21 90 L 12/14/17 09:00 78 14 116/52 L 90 L 12/14/17 08:50 96 H 17 90 L 12/14/17 08:40 100 H 20 91 L 12/14/17 08:37 98 H 23 146/113 H 94 L 12/14/17 08:30 99 H 16 92 L 12/14/17 08:20 93 H 15 90 L 12/14/17 08:10 92 H 15 91 L 12/14/17 08:00 88 18 115/40 L 91 L 12/14/17 07:50 89 17 90 L 12/14/17 07:40 83 16 90 L 12/14/17 07:30 83 18 89 L 12/14/17 07:20 83 18 88 L 12/14/17 07:10 80 18 90 L Intake and Output (Last 8hrs): Intake & Output 12/13/17 12/14/17 12/14/17 22:59 06:59 14:59 Intake Total 250 Balance 250 Weight 93 lb Intake: IV 250 - Physical Exam Narrative Physical Exam (Free Text): 12/14/17 8:39 Cachetic and confused. Head: Positive for: Atraumatic Pupils: Positive for: PERRL Extroacular Muscles: Positive for: EOMI Mouth: Positive for: Dry Pharnyx: Negative for: ERYTHEMA Neck: Positive for: Normal Range of Motion Respiratory/Chest: Positive for: Accessory Muscle Use, Decreased Breath Sounds. Negative for: Clear to Auscultation, Wheezes, Rales, Retracting, Rhonchi, Tachypneic, Tender to Palpation Cardiovascular: Positive for: Murmurs, Normal S1, S2, Irregular Rhythm. Negative for: Tachycardic, Bradycardic, Rub, Gallop Abdomen: Positive for: Normal Bowel Sounds. Negative for: Tenderness, Distention, Peritoneal Signs Rectal: Negative for: Gross Blood Genitourinary/Pelvic Exam: Positive for: Other (+ acevedo catheter.) Upper Extremity: Negative for: Cyanosis, Edema Lower Extremity: Negative for: Edema, CALF TENDERNESS Neurological: Positive for: Motor Func Grossly Intact. Negative for: Speech Normal Skin: Positive for: Pale Psychiatric: Positive for: Alert, Lethargic. Negative for: Oriented x 3, Normal Insight, Normal Concentration - Medications Active Medications: Active Medications Generic Name Dose Route Start Last Admin Trade Name Freq PRN Reason Stop Dose Admin Arformoterol Tartrate 15 mcg 12/08/17 20:00 12/14/17 07:15 Brovana IH 15 mcg [id number] [facility] Administration Aspirin 300 mg 12/09/17 10:00 12/14/17 09:41 Aspirin Supp RC 300 mg DAILY [facility] Administration Budesonide 0.25 mg 12/08/17 20:00 12/14/17 07:15 Pulmicort Respules IH 0.25 mg [id number] IVETTE Administration Diltiazem HCl 30 mg 12/12/17 09:09 12/14/17 10:49 Cardizem PO Not Given QID IVETTE Heparin Sodium/Sodium Chloride 25,000 units in 250 mls @ 8.001 mls/hr 11:21 12/14/17 08:47 Heparin 46134 Units/250ml 1/2 Normal Saline IV 15 units/kg/hr .Q24H PRN 6.668 mls/hr ADJUST RATE PER PROTOCOL Administration Protocol 18 UNITS/KG/HR Dextrose 1,000 mls @ 75 mls/hr 12/13/17 09:45 12/14/17 09:37 Dextrose 5% In Water 1000 Ml IV 75 mls/hr .[id number] [facility]ETTE Administration Insulin Human Regular 0 units 12/08/17 16:30 12/14/17 08:01 Humulin R Low SC Not Given ACHS IVETTE Protocol Levalbuterol HCl 0.63 mg 12/08/17 16:08 12/10/17 13:58 Xopenex IH 0.63 mg [id number] PRN Administration Shortness of Breath Methylprednisolone 20 mg 12/11/17 10:11 12/14/17 09:41 Solu-Medrol IVP 20 mg Q12 [facility] Administration Morphine Sulfate 1 mg 12/13/17 08:02 12/13/17 22:19 Morphine IVP 1 mg Q4H PRN Administration Agitation Pantoprazole Sodium 20 mg 12/12/17 10:39 12/14/17 09:41 Protonix Inj IVP 20 mg DAILY [facility] Administration Vitamin A 1 ea 12/13/17 08:31 12/13/17 17:45 Vitamin A & D Oint Ud Foilpak TOP 1 ea BID PRN Administration Dry mouth - Patient Studies Lab Studies: Lab Studies 12/14/17 12/14/17 12/14/17 Range/Units 07:44 06:30 06:30 WBC 11.8 H D (4.5-11.0) 10^3/ul RBC 4.02 (3.5-6.1) 10^6/uL Hgb 11.0 L (12.0-16.0) g/dL Hct 38.6 (36.0-48.0) % MCV 96.0 (80.0-105.0) fl MCH 27.4 (25.0-35.0) pg MCHC 28.5 L (31.0-37.0) g/dl RDW 14.7 H (11.5-14.5) % Plt Count 273 (120.0-450.0) 10^3/uL MPV 10.2 (7.0-11.0) fl Gran % 96.5 H (50.0-68.0) % Lymph % (Auto) 1.7 L (22.0-35.0) % Bennett % (Auto) 1.7 (1.0-6.0) % Eos % (Auto) 0.0 L (1.5-5.0) % Baso % (Auto) 0.1 (0.0-3.0) % Gran # 11.36 H (1.4-6.5) Lymph # (Auto) 0.2 L (1.2-3.4) Bennett # (Auto) 0.2 (0.1-0.6) Eos # (Auto) 0.0 (0.0-0.7) Baso # (Auto) 0.01 (0.0-2.0) K/mm3 APTT 93.3 H (25.1-36.5) Seconds Sodium (132-148) mmol/L Potassium (3.6-5.0) mmol/L Chloride (98-107) mmol/L Carbon Dioxide (21-33) mmol/L Anion Gap (10-20) BUN (7-21) mg/dL Creatinine (0.7-1.2) mg/dl Est GFR ( Amer) Est GFR (Non-Af Amer) POC Glucose (mg/dL) 205 H (65-110) mg/dL Random Glucose (70-110) mg/dL Calcium (8.4-10.5) mg/dL 12/14/17 12/13/17 12/13/17 Range/Units 06:30 22:01 12:24 WBC (4.5-11.0) 10^3/ul RBC (3.5-6.1) 10^6/uL Hgb (12.0-16.0) g/dL Hct (36.0-48.0) % MCV (80.0-105.0) fl MCH (25.0-35.0) pg MCHC (31.0-37.0) g/dl RDW (11.5-14.5) % Plt Count (120.0-450.0) 10^3/uL MPV (7.0-11.0) fl Gran % (50.0-68.0) % Lymph % (Auto) (22.0-35.0) % Bennett % (Auto) (1.0-6.0) % Eos % (Auto) (1.5-5.0) % Baso % (Auto) (0.0-3.0) % Gran # (1.4-6.5) Lymph # (Auto) (1.2-3.4) Bennett # (Auto) (0.1-0.6) Eos # (Auto) (0.0-0.7) Baso # (Auto) (0.0-2.0) K/mm3 APTT (25.1-36.5) Seconds Sodium 150 H (132-148) mmol/L Potassium 5.0 (3.6-5.0) mmol/L Chloride 110 H (98-107) mmol/L Carbon Dioxide 31 (21-33) mmol/L Anion Gap 15 (10-20) BUN 82 H (7-21) mg/dL Creatinine 1.4 H (0.7-1.2) mg/dl Est GFR ( Amer) 43 Est GFR (Non-Af Amer) 36 POC Glucose (mg/dL) 218 H 199 H (65-110) mg/dL Random Glucose 187 H (70-110) mg/dL Calcium 8.7 (8.4-10.5) mg/dL Laboratory Results - last 24 hr 12/13/17 12/13/17 12/14/17 12:24 22:01 06:30 WBC RBC Hgb Hct MCV MCH MCHC RDW Plt Count MPV Gran % Lymph % (Auto) Bennett % (Auto) Eos % (Auto) Baso % (Auto) Gran # Lymph # (Auto) Bennett # (Auto) Eos # (Auto) Baso # (Auto) APTT Sodium 150 H Potassium 5.0 Chloride 110 H Carbon Dioxide 31 Anion Gap 15 BUN 82 H Creatinine 1.4 H Est GFR ( Amer) 43 Est GFR (Non-Af Amer) 36 POC Glucose (mg/dL) 199 H 218 H Random Glucose 187 H Calcium 8.7 12/14/17 12/14/17 12/14/17 06:30 06:30 07:44 WBC 11.8 H D RBC 4.02 Hgb 11.0 L Hct 38.6 MCV 96.0 MCH 27.4 MCHC 28.5 L RDW 14.7 H Plt Count 273 MPV 10.2 Gran % 96.5 H Lymph % (Auto) 1.7 L Bennett % (Auto) 1.7 Eos % (Auto) 0.0 L Baso % (Auto) 0.1 Gran # 11.36 H Lymph # (Auto) 0.2 L Bennett # (Auto) 0.2 Eos # (Auto) 0.0 Baso # (Auto) 0.01 APTT 93.3 H Sodium Potassium Chloride Carbon Dioxide Anion Gap BUN Creatinine Est GFR ( Amer) Est GFR (Non-Af Amer) POC Glucose (mg/dL) 205 H Random Glucose Calcium Fingerstick Blood Sugar Results: 205 Critical Care Progress Note - Prophylaxis GI Prophylaxis GI: PPI - Prophylaxis DVT Prophylaxis DVT: Heparin SQ - Nutrition Nutrition: Nutrition Category Date Time Status Dysphagia/Modified Consistency Diet [DIET] Diets 12/10/17 Lunch Ordered Assessment/Plan - Assessment and Plan (Free Text) Assessment: Patient is an 87 y/o F with PMHx of COPD induced pulmonary fibrosis, 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 Patient is currently DNI/DNR pending hospice. Plan: Neuro: Acute delirium likely due to multiple comorbidites, and icu. - will continue to re-orient patient, and reset circadian rhythm. Pulm: Hypercapneic and hypoxemic respiratory distress likely due to copd exacerbation complicated with transient flash pulmonary edema. On high flow oxygen Currently DNI/DNR Continue bronchodilators, and tapering solumedrol Patient has severe copd induced pulmonary fibrosis, family considering hospice care, pending. Cardio: New onset a.fib with RVR- HR controlled On ASA and heparin drip. Systolic CHF with LVEF of 35% with mild pericardial effusion. ID: Afebrile, mild leukocytosis. No growth on blood culture, staph positive urine culture. s/p antibiotics for pneumonia. Antibiotics was discontinued as per primary. GI: Continue with dysphagia diet as tolerated. Ppi for gi prophylaxis. Heme: H/H stable, at baseline, will continue to monitor Nephro: Hypernatremia most likely secondary to dehydration- Sodium improved to 150 from 156 in ~ 24hours. Continue with fluid hydration. Endo: Maintain euglycemia (140 - 180) DVT ppx: Heparin drip for afib. Dispo: possible hospice care, pending family signature. Patient seen, examined and case discussed with the attending. - Date & Time Date: 12/14/17 Time: 11:40 <Garfield Tavera - Last Filed: 12/14/17 16:04> CCU Objective - Vital Signs / Intake & Output Vital Signs (Last 4 hours): Vital Signs Temp Pulse Resp BP Pulse Ox 12/14/17 15:50 30 H 12/14/17 14:10 98.1 F 115 H 23 90 L 12/14/17 14:00 97.9 F 108 H 19 107/55 L 90 L 12/14/17 13:50 97.9 F 106 H 19 90 L 12/14/17 13:44 97.7 F 99 H 19 111/51 L 90 L 12/14/17 13:40 97.7 F 115 H 19 90 L 12/14/17 13:30 97.5 F L 97 H 23 89 L 12/14/17 13:20 97.3 F L 110 H 25 H 89 L 12/14/17 13:18 20 12/14/17 13:10 97.2 F L 105 H 20 88 L 12/14/17 13:00 96.8 F L 109 H 22 88/59 L 87 L 12/14/17 12:50 96.4 F L 104 H 19 87 L 12/14/17 12:49 96.4 F L 113 H 87 L 12/14/17 12:40 96.3 F L 93 H 22 88 L 12/14/17 12:30 96.1 F L 108 H 22 88 L 12/14/17 12:20 95.7 F L 123 H 23 88 L 12/14/17 12:10 95.4 F L 111 H 21 87 L Intake and Output (Last 8hrs): Intake & Output 12/14/17 12/14/17 12/14/17 06:59 14:59 22:59 Intake Total 250 Balance 250 Weight 93 lb Intake: IV 250 - Patient Studies Lab Studies: Lab Studies 12/14/17 12/14/17 12/14/17 Range/Units 11:10 07:44 06:30 WBC (4.5-11.0) 10^3/ul RBC (3.5-6.1) 10^6/uL Hgb (12.0-16.0) g/dL Hct (36.0-48.0) % MCV (80.0-105.0) fl MCH (25.0-35.0) pg MCHC (31.0-37.0) g/dl RDW (11.5-14.5) % Plt Count (120.0-450.0) 10^3/uL MPV (7.0-11.0) fl Gran % (50.0-68.0) % Lymph % (Auto) (22.0-35.0) % Bennett % (Auto) (1.0-6.0) % Eos % (Auto) (1.5-5.0) % Baso % (Auto) (0.0-3.0) % Gran # (1.4-6.5) Lymph # (Auto) (1.2-3.4) Bennett # (Auto) (0.1-0.6) Eos # (Auto) (0.0-0.7) Baso # (Auto) (0.0-2.0) K/mm3 APTT 93.3 H (25.1-36.5) Seconds Sodium (132-148) mmol/L Potassium (3.6-5.0) mmol/L Chloride (98-107) mmol/L Carbon Dioxide (21-33) mmol/L Anion Gap (10-20) BUN (7-21) mg/dL Creatinine (0.7-1.2) mg/dl Est GFR ( Amer) Est GFR (Non-Af Amer) POC Glucose (mg/dL) 207 H 205 H (65-110) mg/dL Random Glucose (70-110) mg/dL Calcium (8.4-10.5) mg/dL 12/14/17 12/14/17 12/13/17 Range/Units 06:30 06:30 22:01 WBC 11.8 H D (4.5-11.0) 10^3/ul RBC 4.02 (3.5-6.1) 10^6/uL Hgb 11.0 L (12.0-16.0) g/dL Hct 38.6 (36.0-48.0) % MCV 96.0 (80.0-105.0) fl MCH 27.4 (25.0-35.0) pg MCHC 28.5 L (31.0-37.0) g/dl RDW 14.7 H (11.5-14.5) % Plt Count 273 (120.0-450.0) 10^3/uL MPV 10.2 (7.0-11.0) fl Gran % 96.5 H (50.0-68.0) % Lymph % (Auto) 1.7 L (22.0-35.0) % Bennett % (Auto) 1.7 (1.0-6.0) % Eos % (Auto) 0.0 L (1.5-5.0) % Baso % (Auto) 0.1 (0.0-3.0) % Gran # 11.36 H (1.4-6.5) Lymph # (Auto) 0.2 L (1.2-3.4) Bennett # (Auto) 0.2 (0.1-0.6) Eos # (Auto) 0.0 (0.0-0.7) Baso # (Auto) 0.01 (0.0-2.0) K/mm3 APTT (25.1-36.5) Seconds Sodium 150 H (132-148) mmol/L Potassium 5.0 (3.6-5.0) mmol/L Chloride 110 H (98-107) mmol/L Carbon Dioxide 31 (21-33) mmol/L Anion Gap 15 (10-20) BUN 82 H (7-21) mg/dL Creatinine 1.4 H (0.7-1.2) mg/dl Est GFR ( Amer) 43 Est GFR (Non-Af Amer) 36 POC Glucose (mg/dL) 218 H (65-110) mg/dL Random Glucose 187 H (70-110) mg/dL Calcium 8.7 (8.4-10.5) mg/dL Laboratory Results - last 24 hr 12/13/17 12/14/17 12/14/17 22:01 06:30 06:30 WBC 11.8 H D RBC 4.02 Hgb 11.0 L Hct 38.6 MCV 96.0 MCH 27.4 MCHC 28.5 L RDW 14.7 H Plt Count 273 MPV 10.2 Gran % 96.5 H Lymph % (Auto) 1.7 L Bennett % (Auto) 1.7 Eos % (Auto) 0.0 L Baso % (Auto) 0.1 Gran # 11.36 H Lymph # (Auto) 0.2 L Bennett # (Auto) 0.2 Eos # (Auto) 0.0 Baso # (Auto) 0.01 APTT Sodium 150 H Potassium 5.0 Chloride 110 H Carbon Dioxide 31 Anion Gap 15 BUN 82 H Creatinine 1.4 H Est GFR ( Amer) 43 Est GFR (Non-Af Amer) 36 POC Glucose (mg/dL) 218 H Random Glucose 187 H Calcium 8.7 12/14/17 12/14/17 12/14/17 06:30 07:44 11:10 WBC RBC Hgb Hct MCV MCH MCHC RDW Plt Count MPV Gran % Lymph % (Auto) Bennett % (Auto) Eos % (Auto) Baso % (Auto) Gran # Lymph # (Auto) Bennett # (Auto) Eos # (Auto) Baso # (Auto) APTT 93.3 H Sodium Potassium Chloride Carbon Dioxide Anion Gap BUN Creatinine Est GFR ( Amer) Est GFR (Non-Af Amer) POC Glucose (mg/dL) 205 H 207 H Random Glucose Calcium Critical Care Progress Note - Nutrition Nutrition: Nutrition Category Date Time Status Dysphagia/Modified Consistency Diet [DIET] Diets 12/10/17 Lunch Ordered Attending/Attestation - Attestation I have personally seen and examined this patient.: Yes I have fully participated in the care of the patient.: Yes I have reviewed all pertinent clinical information: Yes Notes (Text): 12/14/17 16:03 87 yo female with end stage lung disease, family switched her to comfort care. She is DNR/DNI, appears to be comfortable, Going on hospice. ccm time 40 min
[2017-12-14] MEDS ORDERED: Nitroglycerin 2% Ointment Foilpak UD TOP PRN (11:57)
[2017-12-14] MEDS: Morphine 2 mg/ml ISec IVP PRN (12:45)
[2017-12-14 14:19] VITALS: BP 107/55; PULSE 115; TEMP 98.1; O2SAT 90
--- NOTE | 2017-12-14 15:09 | PN ---
DATE: 12/14/2017 CRITICAL CARE PROGRESS NOTE SUBJECTIVE: This 87-year-old female was examined in ICU, bed 6. She remains weak, deconditioned and now verbally unresponsive. At present, she is receiving high-flow oxygen therapy and a reheating blanket and is also receiving IV fluids in the setting of newly noted hypernatremia and poor p.o. intake. The ultrasound technologist sonographer has placed her on D5W after my discussion with him at 75 mL/hour and her serum sodium has improved to 150 mg/dL from a previous value of 156 mg/dL. I have had lengthy discussions with nurse practitioner, ultrasound technologist sonographer, Palliative Care and family. Power of release specialist, niece, Monet Schwarz is considering hospice palliative care disposition. At present, the patient remains in ICU, bed 6 and is receiving full medical support on a reheating blanket. PHYSICAL EXAMINATION: VITAL SIGNS: Temperature 96.8, respirations 22, pulse 109, and blood pressure 88/59 with a pulse ox of 87% on 100% nasal O2. Urine output is 250 mL thus far today. Monitor shows atrial fibrillation. HEENT: Head: Normocephalic, atraumatic. Eyes: No icterus. Ears: Clear. Throat: Noninjected. NECK: Supple. HEART: Irregular S1, S2. LUNGS: Occasional rhonchi. ABDOMEN: Soft. EXTREMITIES: No edema. SKIN: Without rash. NEUROLOGICAL: Lethargic. VASCULAR: Legs warm to touch. PSYCHOLOGICAL: Could not be assessed. LABORATORY DATA: Sodium 150, K 5.0, chloride 110, bicarb 31, BUN 82, creatinine 1.4, random blood sugar 205. White count 11,800, hemoglobin 11, hematocrit 38.6, platelets 273,000. PTT is 93.3. Urinalysis unremarkable. Influenza A, B serology negative. Chest x-ray shows improvement in CHF, small bilateral pleural effusions and improvement in right lower lung pneumonia. IMPRESSION: An 87-year-old female with respiratory insufficiency and failure in the setting of exacerbation of chronic obstructive pulmonary disease and acute congestive heart failure, improved; right lower lung pneumonia, improved status post subendocardial myocardial infarction and new onset atrial fibrillation with comorbidities of metabolic encephalopathy, hypernatremia, atrial fibrillation, failure to thrive. PLAN: As discussed with case management, nurse practitioner, ICU staff and Palliative Care will be to await family decision on hospice placement. She remains n.p.o. at present and is receiving high-flow oxygen therapy and pulmonary support with Xopenex inhalational therapy, Solu-Medrol 20 mg IV q.12, Pulmicort inhalational therapy and Brovana inhalational therapy. She will continue on glaucoma eyedrops from home as labeled, rectal aspirin daily, Cardizem 30 mg p.o. q.i.d., D5W at 75 mL/hour, IV heparin protocol for atrial fibrillation, monitoring PTT and adjusting heparin drip as per protocol with regular low-dose insulin coverage a.c. mealtime and at bedtime. She is receiving 1 mg morphine IV q. 4 hours p.r.n. pain, nitroglycerin ointment to chest wall 1 inch q.4 hours p.r.n. accelerated hypertension, if systolic blood pressure greater than 160 or diastolic blood pressure greater than 100, Protonix 20 mg IV daily, Xopenex inhalational therapy 0.63 mg q.6 hours. Skin care as outlined with the patient remaining DNR/DNI and ordered to have basic metabolic panel and CBC a.m. Greater than 35 minutes was spent in the care management, review of x-rays, labs, medication orders and discussion of the patient with ICU nursing, ultrasound technologist sonographer, case management, nurse practitioner and Palliative Care. All questions were answered. Rossy Pena MD MTDD
[2017-12-14 15:51] VITALS: RESP 30
[2017-12-14] MEDS ORDERED: Brimonidine 0.15% 50 DROP/5 ML BOTTLE OU SCH (18:00)
[2017-12-14] MEDS ORDERED: Latanoprost 2.5 ml Opht Soln OU SCH (22:00)
== END 2017-12-14 15:50 | disposition hospice, inpatient (51) | DRG 189 ==
LOC: ED 10:36 → ERH 12:53 → ICU 14:27
PROVIDERS: ADMIT Internal Medicine; ATTEND Internal Medicine
PROC: 5A09457 Assistance with Respiratory Ventilation, 24-96 Consecutive Hours, Continuous Positive Airway Pressure (ICD-10-PCS; principal; 2017-12-08)
PROC: 0T9B70Z Drainage of Bladder with Drainage Device, Via Natural or Artificial Opening (ICD-10-PCS; 2017-12-11)
DX: J96.91 Respiratory failure, unspecified with hypoxia (principal); J18.9 Pneumonia, unspecified organism; I50.23 Acute on chronic systolic (congestive) heart failure; F05 Delirium due to known physiological condition; E22.2 Syndrome of inappropriate secretion of antidiuretic hormone; J84.10 Pulmonary fibrosis, unspecified; J44.0 Chronic obstructive pulmonary disease with (acute) lower respiratory infection; I48.91 Unspecified atrial fibrillation; R64 Cachexia; I08.1 Rheumatic disorders of both mitral and tricuspid valves; J44.1 Chronic obstructive pulmonary disease with (acute) exacerbation; Z68.1 Body mass index [BMI] 19.9 or less, adult; J96.92 Respiratory failure, unspecified with hypercapnia; E86.0 Dehydration; R62.7 Adult failure to thrive; H40.9 Unspecified glaucoma; D50.9 Iron deficiency anemia, unspecified; R73.9 Hyperglycemia, unspecified; Z66 Do not resuscitate; K59.00 Constipation, unspecified; Y95 Nosocomial condition; Z51.5 Encounter for palliative care; I25.2 Old myocardial infarction; Z79.01 Long term (current) use of anticoagulants; Z78.1 Physical restraint status; Z85.038 Personal history of other malignant neoplasm of large intestine; Z86.73 Personal history of transient ischemic attack (TIA), and cerebral infarction without residual deficits; M10.9 Gout, unspecified

== ENCOUNTER 2017-12-14 15:50 | Inpatient (IN) | payer OTHER ==
[2017-12-14] MEDS ORDERED: Morphine 2 mg/ml ISec IM STA (16:14)
[2017-12-14] MEDS ORDERED: Morphine 2 mg/ml ISec IVP PRN (16:15)
[2017-12-14] MEDS ORDERED: Albuterol 0.5% Inhal Sol (2.5 mg/0.5 ml) UD IH SCH (20:00)
[2017-12-14 21:52] VITALS: BP 100/60; RESP 16; TEMP 97
--- NOTE | 2017-12-15 02:26 | CP.PCM.PRO ---
Pronouncement of Note - Clinical Findings Physical Exam: No Response Verbal/Painful Stimuli, Absent Peripheral Pulses{ Carotid & Femoral}, Absent Heart & Breath Sounds, No Pupillary Light Reflex, No Corneal Reflex, Pupils Fixed & Dilated, Absence of Vital Signs - Pronouncement Time Time of Pronouncement of : 02:22 - Notifications Pronouncement Notifications: Family Notified ( will talk to family member.Our gluing machine operator electronic is connecting her line to family member.), Atending Notified ( notified by nurse.) Pellet Preparation Operator Notified: No - Autopsy Autopsy Requested: No [place] [id number]
== END 2017-12-15 02:18 | DRG 190 ==
LOC: ICU 15:50 → 5RNO 21:52
PROVIDERS: ADMIT Internal Medicine; ATTEND Internal Medicine
DX: J44.1 Chronic obstructive pulmonary disease with (acute) exacerbation (principal); J18.9 Pneumonia, unspecified organism; G93.41 Metabolic encephalopathy; I50.23 Acute on chronic systolic (congestive) heart failure; R64 Cachexia; Z51.5 Encounter for palliative care; E22.2 Syndrome of inappropriate secretion of antidiuretic hormone; I48.91 Unspecified atrial fibrillation; J84.10 Pulmonary fibrosis, unspecified; Z68.1 Body mass index [BMI] 19.9 or less, adult; J44.0 Chronic obstructive pulmonary disease with (acute) lower respiratory infection; R62.7 Adult failure to thrive; Z66 Do not resuscitate